=== PATIENT | female | born 1980 | race Caucasian/White ===

== ENCOUNTER 2024-09-24 14:17 | Emergency (ER) | payer MEDICAID, SELFPAY ==
[2024-09-24 14:20] VITALS: BP 128/82; PULSE 94; RESP 18; TEMP 37.3; O2SAT 98
[2024-09-24 14:23] VITALS: BP 128/82; PULSE 94; RESP 18; TEMP 37.3; O2SAT 98
--- NOTE | 2024-09-24 14:35 | ED.GENADUL_ITS ---
Discharge Plan Disposition Patient Disposition: Home Discharge Details Clinical Impression: Atypical pneumonia, Influenza A Primary Care Provider: [facility] ED Provider: Vicente Fitzpatrick Home Meds and New Rx's Prescriptions: New benzonatate 100 mg capsule 100 mg PO TID Qty: 30 0RF azithromycin 250 mg tablet 250 mg PO DAILY 4 Days Qty: 4 0RF Rx Instructions: start on day 2 of therapy Discharge Instructions Instructions: Atypical Pneumonia (Mycoplasma and Viral) (DC) Additional Instructions: At this time show evidence of atypical pneumonia on your ultrasound. Please take the Symbicort inhaler, 2 puffs twice daily for the next 1 to 2 weeks. Please take the azithromycin and the Tessalon Perles to help with the cough. These prescriptions have been sent to your pharmacy on file. Please be aware that the antibiotic may impact your control and make it less effective. Please use protection while on the antibiotic. If you notice any worsening of your symptoms, or any new symptoms such as vomiting, diarrhea, fever, chills, shortness of breath, chest pain, numbness, weakness, or fainting , please return immediately to the emergency department for reevaluation. Please follow up with your primary care provider as soon as possible for reassessment and reevaluation. As always, it was a pleasure participating in your medical care today. HPI General Date/Time Provider Initiated Documentation: 09/24/24 14:19 . 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 Symptoms have been present for the last 3 to 4 days, she has also had a mild sore throat. Cough is productive with brown sputum. She does have multiple other sick contacts at home. She denies any hemoptysis. She does take control. No recent long trips surgeries or procedures. No history of blood clots. No other complaints at this time. Related Data Home Medications ?Medication ?Instructions ?Recorded ?Confirmed azithromycin 250 mg tablet 250 mg PO DAILY 4 days #4 tabs 09/24/24 benzonatate 100 mg capsule 100 mg PO TID #30 caps 09/24/24 Previous Rx's ?Medication ?Instructions ?Recorded azithromycin 250 mg tablet 250 mg PO DAILY 4 days #4 tabs 09/24/24 benzonatate 100 mg capsule 100 mg PO TID #30 caps 09/24/24 Allergies Allergy/AdvReac Type Severity Reaction Status Date / Time No Known Allergies Allergy Unverified 09/24/24 14:22 General Stated Complaint: RespSymp WESLEY: 3 Exam Narrative Exam Narrative: 1.Const: Well-nourished, Well-developed, appearing stated age 2.Eyes: PERRL, no conjunctival injection, and symmetrical lids. 3.ENT: Atraumatic external nose and ears. Moist MM. Neck: Symmetric, trachea midline, No thyromegaly. No erythema in the posterior oropharynx. Tympanic membranes are arriola and pearly. 4.CVS: +S1/S2, Peripheral pulses 2+ and equal in all extremities. Brisk capillary refill in all extremities. 5.RESP: Unlabored respiratory effort. Clear to auscultation bilaterally. No wheezes rales or rhonchi 6.GI: Soft, Nontender/Nondistended, No hepatosplenomegaly. No guarding or rebound. 7.MSK: Normocephalic/Atraumatic, Extremities w/o deformity or ttp No cyanosis or clubbing, Normal movement of all extremities 8.Skin: Warm, Dry. No rashes or lesions. 9.Neuro: director of intelligence II-XII grossly intact. Sensation grossly intact, no focal neurologic deficits. 10.Psych: (AAO) x3. 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 Symptoms have been present for the last 3 to 4 days, she has also had a mild sore throat. Cough is productive with brown sputum. She does have multiple other sick contacts at home. She denies any hemoptysis. She does take control. No recent long trips surgeries or procedures. No history of blood clots. No other complaints at this time. Exam demonstrates well-appearing female, mild tachycardia, posterior oropharynx is unremarkable, tympanic membranes are arriola and pearly, lung sounds are clear, however with the patient's cough and productivity, a bedside ultrasound was performed surprisingly does show evidence of B-lines mild early atypical consolidative components. Suspect atypical pneumonia. Likely originally originating from a viral component. Will give azithromycin for atypical coverage, Tessalon Perles for cough, Symbicort inhaler for home use. Discussed red flags for which to return. I have extensively reviewed the treatment plan and discharge instructions with the patient. I have addressed all patient concerns at this time. The patient was made aware of what symptoms to monitor for that would warrant a return to the emergency department. Discussed the plan with the patient, they demonstrate verbal understanding and agreement with our assessment and plan at this time. The documentation in this chart was dictated using Software 2000 dictation software. Please excuse any dictation errors. Patient's influenza test was positive, I did call her and contact her and let her know. She has declined Tamiflu at this time. Quality:SDOH Health Related Social Needs: No Data to Display PFSH All Active Problems (Updated 09/24/24 @ 15:42 by Vicente Fitzpatrick DO) Influenza A (Acute) Atypical pneumonia (Acute) Social History Smoking/Tobacco Use Status: Never Smoking risk assessment performed?: Yes Alcohol Intake: current Alcohol Intake frequency: holidays/special occasions only Drug use: Never Substance use type: former substance user POCUS Exam (ED) Limited Thoracic Lung Exam DATE OF EXAM: 09/24/24 TIME OF EXAM: 14:38 PROVIDER THAT PERFORMED THE STUDY: Vicente Fitzpatrick IS THIS A REPEAT EXAM DURING THIS ENCOUNTER: No REASON FOR EXAM: Pneumonia VISUALIZED STRUCTURES: right lateral, left lateral, right posterior and left posterior PERTINENT FINDINGS/IMPRESSION: B-lines/left side, B-lines/right side and Pneumonia DIFFERENTIAL DIAGNOSES: atypical pneumonia Exam complete
--- OUTSIDE RECORDS SUMMARY | 2024-09-24 15:04 | XMS_ITS ---
Author Organization Unknown Address [address] [place] [address] [phone] Phone Care Team Providers Care Electrotyper Apprentice Name Role Phone MAGALIS AUSTIN Attending Unavailable SHANELL JAMES Primary Unavailable Results HCG QUANTITATIVE WHOLE MOLEC ULE* - Collect Date/Time: 01/16/2023 08:35 [facility] ID: [id number] [address] [place] [address], [address] LOINC: 81750-8 Test Value Unit Reference Range Code Code System Flag HCG, total+Beta subs 2135 91851-6 LOINC TYPE AND ANTIBODY S CREEN* - Collect Date/Time: 01/16/2023 08:35 [facility] ID: [id number] [address] [place] [address], [phone] LOINC: 882-1 Test Value Unit Reference Range Code Code System Flag Blood Group A 883-9 LOINC Rh (D) POSITIVE 53003-7 LOINC Antibody Screen NEGATIVE 1005-8 LOINC Social History Type Status Start Date End Date Code Code Syst em Smoking History Never smoker (Never Smoked) 213481744 SNOMED CT Sex Female Hospital Discharge Instructions Should you have any questions prior to discharge, please contact a member of your healthcare team. If you have left the hospital and have any questions, please contact your primary care physician. Reason For Referral No Data Found Allergies and Adverse Reactions Allergy Substance Reaction Severity Start Date Concern Status Co de Code System No Known Drug Allergies Moderate Active 444803671 SNOMED-CT Plan of Treatment LAB DRAW 15MIN 07/09/2023 LAB DRAW 15MIN 07/09/2023 LAB DRAW 15MIN 07/09/2023 LAB DRAW 15MIN 07/09/2023 Encounters Encounter Diagnosis Start Date Code Code Sys tem Amenorrhea 01/16/2023 75769222 SNOMED-CT Personal Care Team Section Performer Name Performer Role Active Date Inactive Da te
--- OUTSIDE RECORDS SUMMARY | 2024-09-24 15:04 | XMS_ITS ---
Author Organization Unknown Address [address] [place] [address] [phone] Phone Care Team Providers Care Television Production Clerk Name Role Phone MAGALIS AUSTIN Attending Unavailable SHANELL JAMES Primary Unavailable Results HCG QUANTITATIVE WHOLE MOLEC ULE* - Collect Date/Time: 01/19/2023 11:10 [facility] ID: [id number] [address] [place] [address], [address] LOINC: 29781-3 Test Value Unit Reference Range Code Code System Flag HCG, total+Beta subs 7711 20065-9 LOINC Social History Type Status Start Date End Date Code Code Syst em Smoking History Never smoker (Never Smoked) 533859871 SNOMED CT Sex Female Hospital Discharge Instructions [...] System No Known Drug Allergies Moderate Active 755559174 SNOMED-CT Plan of Treatment LAB DRAW 15MIN 07/09/2023 LAB DRAW 15MIN 07/09/2023 LAB DRAW 15MIN 07/09/2023 LAB DRAW 15MIN 07/09/2023 Encounters Encounter Diagnosis Start Date Code Code Sys tem Hemorrhage in early , unspecified 01/19/2023 SNOMED-CT Personal Care Team Section Performer Name Performer Role Active Date Inactive Da te
--- OUTSIDE RECORDS SUMMARY | 2024-09-24 15:04 | XMS_ITS ---
Author Organization Unknown Address [address] [place] [address] [phone] Phone Care Team Providers Care Concrete Pourer Name Role Phone KP Delgado Attending Unavailable SHANELL JAMES Primary Unavailable Social History Type Status Start Date End Date Code Code Syst em Smoking History Never smoker (Never Smoked) 422758278 SNOMED CT Sex Female Hospital Discharge Instructions [...] System No Known Drug Allergies Moderate Active 189460283 SNOMED-CT Plan of Treatment LAB DRAW 15MIN 07/09/2023 LAB DRAW 15MIN 07/09/2023 LAB DRAW 15MIN 07/09/2023 LAB DRAW 15MIN 07/09/2023 Encounters Encounter Diagnosis Start Date Code Code Sys tem Encounter for gynecological examination (general) (routine) without abnormal findings 06/27/2022 SNOM ED-CT Personal Care Team Section Performer Name Performer Role Active Date Inactive Ian black
--- OUTSIDE RECORDS SUMMARY | 2024-09-24 15:05 | XMS_ITS ---
Author Organization Unknown Address [address] [place] [address] [phone] Phone Care Team Providers Care Dry Cell Assembly Supervisor Name Role Phone MAGALIS TORO LOU Attending Unavailable SHANELL JAMES Primary Unavailable Results URINALYSIS ROUTINE* - [facility] t Date/Time: 01/20/2023 14:00 [facility] ID: [id number] [address] [place], [place], [address] LOINC: Test Value Unit Reference Range Code Code System Flag COLLECTION MODE: NOT STATED 74738-4 LOINC Color STRAW yellow 5778-6 LOINC Appearance CLEAR clear 5767-9 LOINC Glucose urine NEGATIVE negative mg/dl 73413-1 LOINC Bilirubin NEGATIVE negative 5770-3 LOINC Ketones NEGATIVE negative mg/dl 2514-8 LOINC Spec gravity <=1.005 1.003 - 1.030 5811-5 LOINC pH urine 6.0 5.0 - 7.0 2756-5 LOINC Protein NEGATIVE negative mg/dl 86357-8 LOINC Urobilinogen 0.2 <or= 1 EU/dl 43701-7 LOINC Nitrite NEGATIVE negative 5802-4 LOINC Blood TRACE-LY negative 5794-3 LOINC A Leukocytes NEGATIVE negative 76781-9 LOINC MICROSCOPIC* INDICATED WBCs none 0-5 / hpf 14932-4 LOINC RBCs 0-5 0-5 / hpf 18836-0 LOINC Epith cells 0-5 0-5 / hpf 24629-5 LOINC Cell types squamous Crystals none none Bacteria none none Mucus none none 8247-9 LOINC Casts none none /lpf 41905-1 LOINC Other 11928-1 LOINC CULT URINE CULTURE* - [facility] t Date/Time: 01/20/2023 14:00 [facility] ID: [id number] [address] [place], [place], [phone] LOINC: 630-4 Test Value Unit Reference Range Code Code System Flag COLLECTION MODE: NOT STATED 31745-2 LOINC US OB LESS THAN 14 WKS W TRA NSVAGINAL* - Completed: 01/20/2023 14:16 LOINC: [facility] RADIOLOGY [place], [place] [address] [facility] RE[facility] Patient Name: DONAL JOINER MRN: Sex: : Age: [id number] Account: Accession: Admit: StayType: [id number] 01/20/2023 O/P Ordered: Order ID: Submitted: Ordering Provider: 01/20/2023 13:33 [id number] MUNA MACK Completed: Technologist: Resulted: 01/20/2023 14:16 [facility] 01/20/2023 16:12 Study Description: US OB LESS THAN 14 WKS W TRANSVAGINAL Study Reason: BLEEDING IN TECHNIQUE: First trimester obstetrical ultrasound was performed. COMPARISON: No exams were available for comparison FINDINGS: There is an intrauterine gestational sac which contains a yolk sac. No heart rate detected. Mean sac diameter 10 mm equaling 5 weeks, 0 days. Estimated delivery date 09/22/2023 Anteflexed uterus with 1.3 cm fibroid. Normal bilateral ovaries. IMPRESSION: Gestational sac with mean sac diameter of 10 mm equaling 5 weeks, 0 days. No heart rate detected. Report Digitally Signed by Dejan Saravia on 01/20/2023 04:12 PM EDT 01/20/23.4272.[facility].to SHANELL JAMES via fax Social History Type Status Start Date End Date Code Code Syst em Smoking History Never smoker (Never Smoked) 192619308 SNOMED CT Sex Female Hospital Discharge Instructions [...] System No Known Drug Allergies Moderate Active 891874546 SNOMED-CT Plan of Treatment LAB DRAW 15MIN 07/09/2023 LAB DRAW 15MIN 07/09/2023 LAB DRAW 15MIN 07/09/2023 LAB DRAW 15MIN 07/09/2023 Encounters Encounter Diagnosis Start Date Code Code Sys tem Dysuria 01/20/2023 60567094 SNOMED-CT Personal Care Team Section Performer Name Performer Role Active Date Inactive Da te
--- OUTSIDE RECORDS SUMMARY | 2024-09-24 15:05 | XMS_ITS ---
Author Organization Unknown Address [address] [place] [address] [phone] Phone Care Team Providers Care Ent Consultant Name Role Phone ANURADHARAEArlyn TOROMCKENNA Attending Unavailable SHANELL JAMES Primary Unavailable Social History Type Status Start Date End Date Code Code Syst em Smoking History Never smoker (Never Smoked) 720429130 SNOMED CT Sex Female Hospital Discharge Instructions [...] System No Known Drug Allergies Moderate Active 060169960 SNOMED-CT Plan of Treatment LAB DRAW 15MIN 07/09/2023 LAB DRAW 15MIN 07/09/2023 LAB DRAW 15MIN 07/09/2023 LAB DRAW 15MIN 07/09/2023 Encounters Encounter Diagnosis Start Date Code Code Sys tem Multigravida of advanced maternal age 0702/16/2023 447 549936 SNOMED-CT Personal Care Team Section Performer Name Performer Role Active Date Inactive Da te
--- OUTSIDE RECORDS SUMMARY | 2024-09-24 15:06 | XMS_ITS ---
Author Organization Unknown Address [address] [place] [address] [phone] Phone Care Team Providers Care Recruitment Advertising Manager Name Role Phone ANURADHA Stoddard Attending Unavailable SHANELL JAMES Primary Unavailable Social History Type Status Start Date End Date Code Code Syst em Smoking History Never smoker (Never Smoked) 470368781 SNOMED CT Sex Female Hospital Discharge Instructions [...] System No Known Drug Allergies Moderate Active 571378921 SNOMED-CT Plan of Treatment LAB DRAW 15MIN 07/09/2023 LAB DRAW 15MIN 07/09/2023 LAB DRAW 15MIN 07/09/2023 LAB DRAW 15MIN 07/09/2023 Encounters Encounter Diagnosis Start Date Code Code Sys tem Multigravida of advanced maternal age 1006/03/2023 440 980356 SNOMED-CT Personal Care Team Section Performer Name Performer Role Active Date Inactive Da sofia
--- OUTSIDE RECORDS SUMMARY | 2024-09-24 15:06 | XMS_ITS ---
Author Organization Unknown Address [address] [place] [address] [phone] Phone Care Team Providers Care Senior Back End Java Developer Name Role Phone MAGALIS AUSTIN Attending Unavailable SHANELL JAMES Primary Unavailable Results CHLAMYDIA/GC AMPLIFIED PROBE * - Collect Date/Time: 03/20/2023 16:37 ID: [id number] [address] [place] [address], [phone] LOINC: 44185-2 Test Value Unit Reference Range Code Code System Flag Chlamydia Result Negative Negative GC Result Negative Negative Social History Type Status Start Date End Date Code Code Syst em Smoking History Never smoker (Never Smoked) 593538834 SNOMED CT Sex Female Hospital Discharge Instructions [...] System No Known Drug Allergies Moderate Active 339270850 SNOMED-CT Plan of Treatment LAB DRAW 15MIN 07/09/2023 LAB DRAW 15MIN 07/09/2023 LAB DRAW 15MIN 07/09/2023 LAB DRAW 15MIN 07/09/2023 Encounters Encounter Diagnosis Start Date Code Code Sys tem Supervision of elderly multigravida, second trimester 03/20/2023 SNOMED-CT Personal Care Team Section Performer Name Performer Role Active Date Inactive Da te
--- OUTSIDE RECORDS SUMMARY | 2024-09-24 15:06 | XMS_ITS ---
Author Organization Unknown Address [address] [place] [address] [phone] Phone Care Team Providers Care Promotions Producer Name Role Phone BASILIO Martin Attending Unavailable SHANELL JAMES Primary Unavailable Social History Type Status Start Date End Date Code Code Syst em Smoking History Never smoker (Never Smoked) 142496049 SNOMED CT Sex Female Hospital Discharge Instructions [...] System No Known Drug Allergies Moderate Active 873969644 SNOMED-CT Plan of Treatment LAB DRAW 15MIN 07/09/2023 LAB DRAW 15MIN 07/09/2023 LAB DRAW 15MIN 07/09/2023 LAB DRAW 15MIN 07/09/2023 Encounters Encounter Diagnosis Start Date Code Code Sys tem Supervision of elderly multigravida, second trimester 04/16/2023 SNOMED-CT Personal Care Team Section Performer Name Performer Role Active Date Inactive Da sofia
--- OUTSIDE RECORDS SUMMARY | 2024-09-24 15:06 | XMS_ITS ---
Author Organization Unknown Address [address] [place] [address] [phone] Phone Care Team Providers Care Appliance Assembler Name Role Phone November Attending Unavailable SHANELL JAMES Primary Unavailable Social History Type Status Start Date End Date Code Code Syst em Smoking History Never smoker (Never Smoked) 329429776 SNOMED CT Sex Female Hospital Discharge Instructions [...] System No Known Drug Allergies Moderate Active 279408692 SNOMED-CT Plan of Treatment LAB DRAW 15MIN 07/09/2023 LAB DRAW 15MIN 07/09/2023 LAB DRAW 15MIN 07/09/2023 LAB DRAW 15MIN 07/09/2023 Encounters Encounter Diagnosis Start Date Code Code Sys tem Multigravida of advanced maternal age 0905/08/2023 442 117644 SNOMED-CT Personal Care Team Section Performer Name Performer Role Active Date Inactive Da sofia
--- OUTSIDE RECORDS SUMMARY | 2024-09-24 15:07 | XMS_ITS ---
Author Organization Unknown Address [address] [place] [address] [phone] Phone Care Team Providers Care Board Handler Name Role Phone TIFFANYHAYLEY NOVEMBER Attending Unavailable SHANELL JAMES Primary Unavailable Results HEMOGRAM + PLATELET WO DIFF - Collect Date/Time: 07/01/2023 16:04 [facility] ID: [id number] [address] [place] [address], [phone] LOINC: 95721-3 Test Value Unit Reference Range Code Code System Flag WBC 11.54 th/cmm L=5.00 H=10.00 6690-2 LOINC H NRBC % 0.0 % L=0.0 H=0.0 62788-5 LOINC NRBC abs count 0.0 mil/cmm L=0.0 H=0.0 05728-7 LOINC RBC 3.56 mil/cmm L=3.90 H=5.40 789-8 LOINC L HEMOGLOBIN 11.7 gm/dL L=12.0 H=16.0 718-7 LOINC L HEMATOCRIT 34 % L=37 H=47 4544-3 LOINC L MCV 97 fL L=82 H=92 787-2 LOINC H MCH 32.9 pg L=27.0 H=31.0 785-6 LOINC H MCHC 34.0 % L=32.0 H=36.0 786-4 LOINC RDW-SD 44.6 fL L=39.0 H=49.0 788-0 LOINC PLATELET COUNT 306 th/cmm L=150 H=450 777-3 LOINC GLUCOSE - 1 HOUR AFTER 50GM GLUCOLA - Collect Date/Time: 07/01/2023 16:04 [facility] ID: [id number] [address] [place], [place], [address] LOINC: 1504-0 Test Value Unit Reference Range Code Code System Flag GLUCOSE 1 HOUR 150 mg/dL L=0 H=135 1504-0 LOINC H Social History Type Status Start Date End Date Code Code Syst em Smoking History Never smoker (Never Smoked) 365856205 SNOMED CT Sex Female Hospital Discharge Instructions [...] System No Known Drug Allergies Moderate Active 862088518 SNOMED-CT Plan of Treatment LAB DRAW 15MIN 07/09/2023 LAB DRAW 15MIN 07/09/2023 LAB DRAW 15MIN 07/09/2023 LAB DRAW 15MIN 07/09/2023 Encounters Encounter Diagnosis Start Date Code Code Sys tem Multigravida of advanced maternal age 1107/01/2023 441 584703 SNOMED-CT Personal Care Team Section Performer Name Performer Role Active Date Inactive Da sofia
--- OUTSIDE RECORDS SUMMARY | 2024-09-24 15:07 | XMS_ITS ---
Author Organization Unknown Address [address] [place] [address] [phone] Phone Care Team Providers Care Presentation Team Member Name Role Phone November Attending Unavailable SHANELL JAMES Primary Unavailable Social History Type Status Start Date End Date Code Code Syst em Smoking History Never smoker (Never Smoked) 458988994 SNOMED CT Sex Female Hospital Discharge Instructions [...] System No Known Drug Allergies Moderate Active 681165250 SNOMED-CT Plan of Treatment LAB DRAW 15MIN 07/09/2023 LAB DRAW 15MIN 07/09/2023 LAB DRAW 15MIN 07/09/2023 LAB DRAW 15MIN 07/09/2023 Encounters Encounter Diagnosis Start Date Code Code Sys tem Multigravida of advanced maternal age 1207/29/2023 445 148138 SNOMED-CT Personal Care Team Section Performer Name Performer Role Active Date Inactive Da sofia
--- OUTSIDE RECORDS SUMMARY | 2024-09-24 15:07 | XMS_ITS ---
Author Organization Unknown Address [address] [place] [address] [phone] Phone Care Team Providers Care Locomotive Crane Operator Name Role Phone TIFFANYHAYLEY NOVEMBER Attending Unavailable SHANELL JAMES Primary Unavailable Results GLUCOSE TOLERANCE TEST THREE HOUR* - Collect Date/Time: 07/09/2023 10:49 [facility] ID: [id number] [address] [place] [address], [phone] LOINC: 61928-9 Test Value Unit Reference Range Code Code System Flag Fasting Glucose 75 mg/dL L=80 H=116 L 1 hour Glucose 159 mg/dL L=80 H=200 2 hour Glucose 156 mg/dL L=80 H=150 H 3 hour Glucose 81 mg/dL L=80 H=116 Social History Type Status Start Date End Date Code Code Syst em Smoking History Never smoker (Never Smoked) 701151748 SNOMED CT Sex Female Hospital Discharge Instructions [...] System No Known Drug Allergies Moderate Active 730594494 SNOMED-CT Plan of Treatment LAB DRAW 15MIN 07/09/2023 LAB DRAW 15MIN 07/09/2023 LAB DRAW 15MIN 07/09/2023 LAB DRAW 15MIN 07/09/2023 Encounters Encounter Diagnosis Start Date Code Code Sys tem Impaired glucose tolerance (oral) 07/09/2023 SNOMED-CT Personal Care Team Section Performer Name Performer Role Active Date Inactive Da te Laboratory Narrative Notes [facility] \[id number]\\[id number]\\[id number]\ \MRLo\ [address] [address] ----PATIENT NAME---- SEX AGE ADMIT M/R# PATIENT# RM/LOC TYPE RHYS Delgado F [id number] O/P ORD: KYLIE ATT: SEC: ELIZABETH: SHANELL GA PHONE: ---PROCEDURE--- GLUCOSE TOLERANCE TEST THREE HOUR* --ORDERED-- --COLLECTED-- --REC'D-- --RESULTED-- --VERIFIED--- 07/09/23 0700 07/09/23 1049 07/09/23 1129 07/09/23 1138 07/09/23 1138 HT SHR LID LD LD \MRHx\ GLUCOSE TOLERANCE TEST, 3 HOUR URINES FASTING _NEG mg/dl ( negative ) 1 hr _100_MG____ mg/dl ( negative ) 2 hr _250_MG____ mg/dl ( negative ) 3 hr _100_MG____ mg/dl ( negative ) BLOODS [ Fasting Glucose 75 L mg/dL (L=80 H=116 )] [ 1 hour Glucose 159 mg/dL (L=80 H=200 )] [ 2 hour Glucose 156 H mg/dL (L=80 H=150 )] [ 3 hour Glucose 81 mg/dL (L=80 H=116 )] 07/09/23.1138.LD .COMPLETE 07/09/23.2146.DEC.REVIEWED
--- OUTSIDE RECORDS SUMMARY | 2024-09-24 15:07 | XMS_ITS ---
Author Organization Unknown Address [address] [place] [phone] Phone Care Team Providers Care Manager Talent Name Role Phone BASILIO Martin Attending Unavailable SHANELL JAMES Primary Unavailable Social History Type Status Start Date End Date Code Code Syst em Smoking History Never smoker (Never Smoked) 846406119 SNOMED CT Sex Female Hospital Discharge Instructions [...] System No Known Drug Allergies Moderate Active 444870675 SNOMED-CT Plan of Treatment LAB DRAW 15MIN 07/09/2023 LAB DRAW 15MIN 07/09/2023 LAB DRAW 15MIN 07/09/2023 LAB DRAW 15MIN 07/09/2023 Encounters Encounter Diagnosis Start Date Code Code Sys tem Multigravida of advanced maternal age 1207/15/2023 [id number] SNOMED-CT Personal Care Team Section Performer Name Performer Role Active Date Inactive Da sofia
--- OUTSIDE RECORDS SUMMARY | 2024-09-24 15:08 | XMS_ITS ---
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[employer] Name Role Phone ANURADHARAEArlyn TOROMCKENNA Attending Unavailable SHANELL JAMSE Primary Unavailable Social History Type Status Start Date End Date Code Code Syst em Smoking History Never smoker (Never Smoked) 960804311 SNOMED CT Sex Female Hospital Discharge Instructions [...] System No Known Drug Allergies Moderate Active [id number] SNOMED-CT Plan of Treatment LAB DRAW 15MIN 07/09/2023 LAB DRAW 15MIN 07/09/2023 LAB DRAW 15MIN 07/09/2023 LAB DRAW 15MIN 07/09/2023 Encounters Encounter Diagnosis Start Date Code Code Sys tem Multigravida of advanced maternal age 0108/13/2023 [id number] SNOMED-CT Personal Care Team Section Performer Name Performer Role Active Date Inactive Da te
--- OUTSIDE RECORDS SUMMARY | 2024-09-24 15:08 | XMS_ITS ---
Author Organization Unknown Address [address] [place] [address] [phone] Phone Care Team Providers Care Programming Development Project Manager Name Role Phone Unavailable Xwatchlist Unavailable MAGALIS AUSTIN Attending Unavailable SHANELL JAMES Primary Unavailable Results TYPE AND SCREEN* - Collect D ate/Time: 08/30/2023 22:34 [facility] ID: [id number] [address] [place] [address], [id number] LOINC: Test Value Unit Reference Range Code Code System Flag Blood Group A 883-9 LOINC Rh (D) POSITIVE 66294-7 LOINC Antibody Screen NEGATIVE 1005-8 LOINC LDH (LACTATE DEHYDROGENASE)* - Collect Date/Time: 08/30/2023 22:34 [facility] ID: [id number] [address] [place] [address], [address] LOINC: 2532-0 Test Value Unit Reference Range Code Code System Flag LDH 173 U/L L=85 H=185 2532-0 LOINC CBC W/ DIFFERENTIAL* - Colle ct Date/Time: 08/30/2023 22:34 [facility] ID: [id number] [address] [place] [address], [address] LOINC: 31279-9 Test Value Unit Reference Range Code Code System Flag WBC 12.81 th/cmm L=5.00 H=10.00 6690-2 LOINC H NEUT % 74.9 % L=40.0 H=80.0 LYMPH % 16.4 % L=10.0 H=50.0 MONO % 6.9 % L=2.0 H=12.0 83763-8 LOINC EOS % 1.0 % L=0.0 H=8.0 BASO % 0.3 % L=0.0 H=3.0 IG % 0.5 % L=0.0 H=1.1 2514-8 LOINC NRBC % 0.0 % L=0.0 H=0.0 07077-7 LOINC NEUT abs count 9.6 th/cmm L=1.6 H=8.4 751-8 LOINC H LYMPH abs count 2.1 th/cmm L=1.5 H=4.0 731-0 LOINC MONO abs count 0.9 th/cmm L=0.2 H=1.0 742-7 LOINC EOS abs count 0.1 th/cmm L=0.0 H=0.5 711-2 LOINC BASO abs count 0.0 th/cmm L=0.0 H=0.2 704-7 LOINC IG abs count 0.1 th/cmm L=0.0 H=0.1 11232-2 LOINC NRBC abs count 0.0 mil/cmm L=0.0 H=0.0 25407-0 LOINC RBC 4.03 mil/cmm L=3.90 H=5.40 789-8 LOINC HEMOGLOBIN 13.3 gm/dL L=12.0 H=16.0 718-7 LOINC HEMATOCRIT 39 % L=37 H=47 4544-3 LOINC MCV 96 fL L=82 H=92 787-2 LOINC H MCH 33.0 pg L=27.0 H=31.0 785-6 LOINC H MCHC 34.4 % L=32.0 H=36.0 786-4 LOINC RDW-SD 44.1 fL L=39.0 H=49.0 788-0 LOINC PLATELET COUNT 320 th/cmm L=150 H=450 777-3 LOINC COMPREHENSIVE METABOLIC PANE L (CMP) - Collect Date/Time: 08/30/2023 22:34 [facility] ID: [id number] [address] [place], [place], [address] LOINC: 43089-9 Test Value Unit Reference Range Code Code System Flag GLUCOSE 93 mg/dL L=70 H=116 2345-7 LOINC BUN 11 mg/dL L=6 H=25 3094-0 LOINC CREATININE 0.73 mg/dL L=0.51 H=0.95 2160-0 LOINC SODIUM SERUM 138 mmol/L L=136 H=145 2951-2 LOINC POTASSIUM SERUM 4.1 mmol/L L=3.4 H=5.2 2823-3 LOINC CHLORIDE SERUM 105 mmol/L L=96 H=110 2075-0 LOINC CARBON DIOXIDE (CO2) 25 mmol/L L=22 H=34 2028-9 LOINC ANION GAP 7.7 mmol/L 97453-2 LOINC CALCIUM SERUM 8.6 mg/dL L=8.2 H=10.2 67937-7 LOINC BILIRUBIN TOTAL 0.2 mg/dL L=0.0 H=1.3 1975-2 LOINC ALK. PHOS. 159 U/L L=46 H=116 6768-6 LOINC H SGOT (AST) 13 U/L L=15 H=37 1920-8 LOINC L SGPT (ALT) 13 U/L L=12 H=78 1742-6 LOINC TOTAL PROTEIN 6.4 gm/dL L=6.0 H=8.0 2885-2 LOINC ALBUMIN 2.3 gm/dL L=3.4 H=5.0 1751-7 LOINC L AGE 42 years eGFR (non-Afr.Amer.) 87 mL/min 18979-8 LOINC eGFR (Afr-Cymraes) 106 mL/min 76472-5 LOINC Social History Type Status Start Date End Date Code Code Syst em Smoking History Never smoker (Never Smoked) 649776288 SNOMED CT Sex Female Vital Signs Vital Sign Value Unit Kershaw Value Kershaw Unit Date/Time Recent/Initial? Code Code System Systolic Blood Pressure 126 mm[Hg] 09/02/2023 08:15 Most Recent 8480-6 LOINC Diastolic Blood Pressure 71 mm[Hg] 09/02/2023 08:15 Most Recent 8462-4 LOINC Systolic Blood Pressure 126 mm[Hg] 08/30/2023 06:44 Initial 8480-6 LOINC Diastolic Blood Pressure 73 mm[Hg] 08/30/2023 06:44 Initial 8462-4 LOINC O2 Saturation 96 % 2023 00:01 Most Recent 08912- 5 LOINC O2 Saturation 99 % 2023 06:44 Initial 54660- 5 LOINC Pulse 74.0 /min 09/02/2023 08:15 Most Recent 8867-4 LOINC Pulse 70.0 /min 08/30/2023 06:44 Initial 8867-4 LOINC Respiration 16 /min 09/02/19 08:15 Most Recent 9279-1 LOINC Respiration 16 /min 08/30/19 06:44 Initial 9279-1 LOINC Temperature 36.2 Surekha 97.2 F 09/02/19 08:15 Most Recent 8310-5 LOINC Temperature 36.9 Surekha 98.4 F 08/30/19 06:44 Initial 8310-5 LOINC Hospital Discharge Instructions Should you have any questions prior to discharge, please contact a member of your healthcare team. If you have left the hospital and have any questions, please contact your primary care physician. Reason For Referral No Data Found Procedures Procedure Name Date Status Code Code Syste m Introduction of Other Hormon e into Peripheral Vein, Percutaneous Approach 08/30/2023 completed [id number] Delivery of Products of Conc eption, External Approach 08/30/2023 completed 40B1XQN [id number] Monitoring of Products of Co nception, Cardiac Rate, External Approach 08/30/2023 completed [id number] Allergies and Adverse Reactions Allergy Substance Reaction Severity Start Date Concern Status Co de Code System No Known Drug Allergies Moderate Active [id number] SNOMED-CT Plan of Treatment LAB DRAW 15MIN 07/09/2023 LAB DRAW 15MIN 07/09/2023 LAB DRAW 15MIN 07/09/2023 LAB DRAW 15MIN 07/09/2023 Encounters Encounter Diagnosis Start Date Code Code Sys tem Full-term premature rupture of membranes, unspecified as to length of time between rupture and onset of labor 08/30/2023 SNOMED-CT Personal Care Team Section Performer Name Performer Role Active Date Inactive Da sofia Laboratory Narrative Notes [facility] 10/23/2023 03:[address] [address] PATHOLOGY REPORT Name: RHYS Delgado : 1980 (AGE:42) F Order Phys: MAGALIS AUSTIN Admit Phys: MAGALIS AUSTIN Collected Date: 08/30/23 09:29 Order #: [id number] Received Date: 08/31/23 09:29 Primary Care: SHANELL JAMES Unsigned Transcriptions represent a preliminary report and do not represent a medical or legal document FINAL PATHOLOGIC DIAGNOSIS: Placenta: Mature 3rd trimester placenta (380 grams, 20th percentile). Trivascular cord. membranes with no specific pathologic features. Reviewed and Electronically Signed by: FRANCESCO SMITH MD PATHOLOGIST 09/03/23 16:06 By the signature above, the attending physician certifies that he/she has personally conducted a gross and/or microscopic examination of the described specimens and rendered or confirmed the above diagnosis. Gross Description: Received fresh with formalin added and patient's name and date of is a 380 gram ortega placenta measuring 15 cm in diameter x 1.5 cm. The membranes appear cannon-pink, semi- transparent with marginal insertion. The umbilical cord is cannon-white, trivascular measuring 32 x 1.0 cm. The surface shows normal arborization of the umbilical vessels. The maternal surface shows beefy red-pink cotyledons. The placenta appears mildly thinner than usual sectioning through. The placenta shows beefy red parenchyma. As400 Analyst sections submitted as A1, A2 membranes and umbilical cord, A3 surface, A4-A5 maternal surface. Clinical Diagnosis: Early term premature rupture of membranes. Pertinent Clinical Data: Prolonged ROM, placenta appears unusually small and thin Specimen Source: Placenta Procedure Location Note: Gross evaluation done at [place], [place]. Microscopic evaluation done at [place], [place]. Histology processed at [facility], [place], [place]. Complexity Code: R d: 08/31/23, 1314, #[id number] t: 09/01/23 14:48 EW d: 09/03/2023; #[id number]; 0921 t: 09/03/2023; 1138; SAB Copy for: File copy printer # [id number] [address] PATHOLOGY REPORT Name: RHYS Delgado : 1980 (AGE:42) F Order Phys: MAGALIS AUSTIN Admit Phys: MAGALIS AUSTIN Collected Date: 08/30/23 09:29 Order #: [id number] Received Date: 08/31/23 09:29 Primary Care: SHANELL JAMES Unsigned Transcriptions represent a preliminary report and do not represent a medical or legal document Copy for: MAGALIS AUSTIN via modem Copy for: REECE ERIKA via fax DISCHARGED [facility] \[id number]\ \MRLo\ [place] [address] ----PATIENT NAME---- SEX AGE ADMIT M/R# PATIENT# RM/LOC TYPE RHYS Delgado F 42 [id number] O/P ORD: MAGALIS TORO ATT: SEC: ELIZABETH: SHANELL JAMES PAT PHONE: ---PROCEDURE--- TYPE AND SCREEN* --ORDERED-- --COLLECTED-- --REC'D-- --RESULTED-- --VERIFIED--- 08/30/23222208/30/23223308/30/23223508/30/23231308/30/232313 MLK RWF RWF RF RF \MRHx\ BLOOD TYPE AND ANTIBODY SCREEN { Blood Group A_ 08/30/23.2312.RF . . .M 883-9 { Rh (D) POSITIVE_ 08/30/23.2312.RF . . .M 22468-4 { Antibody Screen NEGATIVE_ 08/30/23.2312.RF . . .M 1005-8 Valid thru date: _09/02/2023__ 08/30/23.2312.RF . time: _2358 08/30/23.2312.RF . 08/30/23.2313.RF .COMPLETE 08/31/23.47.ALS.REVIEWED History and Physical Notes [facility] 08/30/2023 08:56 CNM Labor & Delivery LABOR ADMISSION H&P NOTE 08/30/2023 08:39 ID: Patient Name: JUDY JOINER Age: 42 years at 37 weeks 0 days gestation presenting [facility] the [facility] accompanied by her partner Surinder. Here for PROM. Lives over an hour away, prefers to be admitted now and await active labor here rather than go home. I would be more nervous at home. Has not done Preferences form but likely will want [facility] again, open to help if needed. Says her labors in past moved along fairly quickly. never had water break like this SUBJECTIVE/HPI: Reports water gush at 4:20 am, wet the whole bed, has continued to come out. Mild contractions. felt some last night as well. 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 Significant Past Medical History: cholecystectomy with complications, stint, several procedures migraine HAs ALLERGIES: adhesives cause rash, NKDA OBJECTIVE/PHYSICAL EXAM: Vital signs: Vital Signs: This Visit Date/Time BP (mm/Hg) BP Position/Site MAP (mm/Hg) Heart Rate Pulse Site Resp Temp (C) Temp (F) SPO2% O2 L/min FiO2 O2 Device Blood Sugar Pain Score Height (cm) Height (in) Weight (kg) Weight (lbs/ozs) Scale BMI BSA Head Cir (cm) 08/30/2023 06:44 126/73 SITTING/R ARM 91 70 BRACHIAL 16 36.9 TEMPORAL SCANNING 98.4 TEMPORAL SCANNING 99 % General: looks comfortable, relaxed, smiling. Surinder reports feeling very anxious. this will be his first baby Cardiovascular: normal Respiratory: normal Neuro: grossly normal Lower extremities: no edema Heart Rate tracing: Baseline: 135 bpm Variability: moderate Accelerations: Decelerations: none Contractions: infrequent, 1 in 20 min, also with periods of irritibility Abdomen: Soft, gravid, non-tender. position: cephalic, back on her R side by Leop[place]. Estimated Weight: 2.75 - 3.0 Kg Contractions palpate: mild Membranes: grossly SROM with wet pad, clear Cervical exam: deferred DATA: Estimated due date: 09/20/23, based on LMP and 9 week ultrasound Ultrasounds: dating and viability at 9 weeks; FAS complete, normal, posterior placenta Regular care LABS: Lab Results: Last 12 Months Test Results Units Reference Range Ordered Collected Status GROUP B STREP NEGATIVE NEGATIVE Normal: Negative 08/27/2023 17:54 08/27/2023 16:22 final OTHER SOURCE: VAG/RECTA VAG/RECTA 08/27/2023 17:54 08/27/2023 16:22 final PCN ALLERGY? NO NO 08/27/2023 17:54 08/27/2023 16:22 final Copy Sent to OB? YES YES 08/27/2023 17:54 08/27/2023 16:22 final Fasting Glucose 75 L mg/dL L=80 H=116 07/09/2023 07:00 07/09/2023 10:49 final 1 hour Glucose 159 mg/dL L=80 H=200 07/09/2023 07:00 07/09/2023 10:49 final 2 hour Glucose 156 H mg/dL L=80 H=150 07/09/2023 07:00 07/09/2023 10:49 final 3 hour Glucose 81 mg/dL L=80 H=116 07/09/2023 07:00 07/09/2023 10:49 final GLUCOSE 1 HOUR 150 H mg/dL L=0 H=135 07/01/2023 16:33 07/01/2023 16:04 final WBC 11.54 H th/cmm L=5.00 H=10.00 07/01/2023 16:33 07/01/2023 16:04 final NRBC % 0.0 % L=0.0 H=0.0 07/01/2023 16:33 07/01/2023 16:04 final NRBC abs count 0.0 mil/cmm L=0.0 H=0.0 07/01/2023 16:33 07/01/2023 16:04 final RBC 3.56 L mil/cmm L=3.90 H=5.40 07/01/2023 16:33 07/01/2023 16:04 final HEMOGLOBIN 11.7 L gm/dL L=12.0 H=16.0 07/01/2023 16:33 07/01/2023 16:04 final HEMATOCRIT 34 L % L=37 H=47 07/01/2023 16:33 07/01/2023 16:04 final MCV 97 H fL L=82 H=92 07/01/2023 16:33 07/01/2023 16:04 final MCH 32.9 H pg L=27.0 H=31.0 07/01/2023 16:33 07/01/2023 16:04 final MCHC 34.0 % L=32.0 H=36.0 07/01/2023 16:33 07/01/2023 16:04 final RDW-SD 44.6 fL L=39.0 H=49.0 07/01/2023 16:33 07/01/2023 16:04 final PLATELET COUNT 306 th/cmm L=150 H=450 07/01/2023 16:33 07/01/2023 16:04 final Chlamydia Result Negative Negative Negative 03/20/2023 16:57 03/20/2023 16:37 final GC Result Negative Negative Negative 03/20/2023 16:57 03/20/2023 16:37 final CHLAMYDIA/GC AMPLIFIED PROBE* 02/25/2023 17:48 02/25/2023 17:51 cancelled Hep B Surface Ag Negative Negative Negative 02/25/2023 17:48 02/25/2023 17:51 final Hep C Ab w Rfx PCR Negative Negative Negative 02/25/2023 17:48 02/25/2023 17:51 final HIV 1/2 Antigen andAntibody Negative Negative Negative 02/25/2023 17:47 02/25/2023 17:51 final WBC 8.66 th/cmm L=5.00 H=10.00 02/25/2023 17:47 02/25/2023 17:51 final NEUT % 71.3 % L=40.0 H=80.0 02/25/2023 17:47 02/25/2023 17:51 final LYMPH % 19.3 % L=10.0 H=50.0 02/25/2023 17:47 02/25/2023 17:51 final MONO % 7.2 % L=2.0 H=12.0 02/25/2023 17:47 02/25/2023 17:51 final EOS % 1.6 % L=0.0 H=8.0 02/25/2023 17:47 02/25/2023 17:51 final BASO % 0.3 % L=0.0 H=3.0 02/25/2023 17:47 02/25/2023 17:51 final IG % 0.3 % L=0.0 H=1.1 02/25/2023 17:47 02/25/2023 17:51 final NRBC % 0.0 % L=0.0 H=0.0 02/25/2023 17:47 02/25/2023 17:51 final NEUT abs count 6.2 th/cmm L=1.6 H=8.4 02/25/2023 17:47 02/25/2023 17:51 final LYMPH abs count 1.7 th/cmm L=1.5 H=4.0 02/25/2023 17:47 02/25/2023 17:51 final MONO abs count 0.6 th/cmm L=0.2 H=1.0 02/25/2023 17:47 02/25/2023 17:51 final EOS abs count 0.1 th/cmm L=0.0 H=0.5 02/25/2023 17:47 02/25/2023 17:51 final BASO abs count 0.0 th/cmm L=0.0 H=0.2 02/25/2023 17:47 02/25/2023 17:51 final IG abs count 0.0 th/cmm L=0.0 H=0.1 02/25/2023 17:47 02/25/2023 17:51 final NRBC abs count 0.0 mil/cmm L=0.0 H=0.0 02/25/2023 17:47 02/25/2023 17:51 final RBC 4.10 mil/cmm L=3.90 H=5.40 02/25/2023 17:47 02/25/2023 17:51 final HEMOGLOBIN 13.4 gm/dL L=12.0 H=16.0 02/25/2023 17:47 02/25/2023 17:51 final HEMATOCRIT 40 % L=37 H=47 02/25/2023 17:47 02/25/2023 17:51 final MCV 97 H fL L=82 H=92 02/25/2023 17:47 02/25/2023 17:51 final MCH 32.7 H pg L=27.0 H=31.0 02/25/2023 17:47 02/25/2023 17:51 final MCHC 33.8 % L=32.0 H=36.0 02/25/2023 17:47 02/25/2023 17:51 final RDW-SD 43.1 fL L=39.0 H=49.0 02/25/2023 17:47 02/25/2023 17:51 final PLATELET COUNT 315 th/cmm L=150 H=450 02/25/2023 17:47 02/25/2023 17:51 final Blood Group A A 02/25/2023 17:47 02/25/2023 17:51 final Rh (D) POSITIVE POSITIVE 02/25/2023 17:47 02/25/2023 17:51 final Antibody Screen NEGATIVE NEGATIVE 02/25/2023 17:47 02/25/2023 17:51 final Rubella IgG Ab Positive Positive See Note 02/25/2023 17:48 02/25/2023 17:51 final Syphilis Serology Negative Negative Negative 02/25/2023 17:48 02/25/2023 17:51 final COLLECTION MODE: NOT STATED NOT STATED 01/20/2023 13:53 01/20/2023 14:00 final COLLECTION MODE: NOT STATED NOT STATED 01/20/2023 13:53 01/20/2023 14:00 final Color STRAW STRAW yellow 01/20/2023 13:53 01/20/2023 14:00 final Appearance CLEAR CLEAR clear 01/20/2023 13:53 01/20/2023 14:00 final Glucose urine NEGATIVE NEGATIVE negative mg/dl 01/20/2023 13:53 01/20/2023 14:00 final Bilirubin NEGATIVE NEGATIVE negative 01/20/2023 13:53 01/20/2023 14:00 final Ketones NEGATIVE NEGATIVE negative mg/dl 01/20/2023 13:53 01/20/2023 14:00 final Spec gravity <=1.005 <=1.005 1.003 - 1.030 01/20/2023 13:53 01/20/2023 14:00 final pH urine 6.0 6.0 5.0 - 7.0 01/20/2023 13:53 01/20/2023 14:00 final Protein NEGATIVE NEGATIVE negative mg/dl 01/20/2023 13:53 01/20/2023 14:00 final Urobilinogen 0.2 0.2 01/20/2023 13:53 01/20/2023 14:00 final Nitrite NEGATIVE NEGATIVE negative 01/20/2023 13:53 01/20/2023 14:00 final Blood TRACE-LY A TRACE-LY negative 01/20/2023 13:53 01/20/2023 14:00 final Leukocytes NEGATIVE NEGATIVE negative 01/20/2023 13:53 01/20/2023 14:00 final MICROSCOPIC* INDICATED INDICATED 01/20/2023 13:53 01/20/2023 14:00 final WBCs none none 0-5 / hpf 01/20/2023 13:53 01/20/2023 14:00 final RBCs 0-5 0-5 0-5 / hpf 01/20/2023 13:53 01/20/2023 14:00 final Epith cells 0-5 0-5 0-5 / hpf 01/20/2023 13:53 01/20/2023 14:00 final Cell types squamous squamous 01/20/2023 13:53 01/20/2023 14:00 final Crystals none none none 01/20/2023 13:53 01/20/2023 14:00 final Bacteria none none none 01/20/2023 13:53 01/20/2023 14:00 final Mucus none none none 01/20/2023 13:53 01/20/2023 14:00 final Casts none none none /lpf 01/20/2023 13:53 01/20/2023 14:00 final Other 01/20/2023 13:53 01/20/2023 14:00 final HCG, total+Beta subs 7711 7711 01/19/2023 11:09 01/19/2023 11:10 final HCG, total+Beta subs 2135 2135 01/16/2023 08:29 01/16/2023 08:35 final Blood Group A A 01/16/2023 08:29 01/16/2023 08:35 final Rh (D) POSITIVE POSITIVE 01/16/2023 08:29 01/16/2023 08:35 final Antibody Screen NEGATIVE NEGATIVE 01/16/2023 08:29 01/16/2023 08:35 final PROBLEM LIST: AMA multip at 42 years old ASSESSMENT: Age: 42 years here at early term (37w0d) being admitted now for PROM heart rate Category 1 GBS: neg Shoulder dystocia risk: low Hemorrhage risk: low PLAN: Admit to Birthing Center FHR monitoring: intermittent auscultation per L&D protocol Labs: not indicated at this time labor pain coping plans: see how it goes, likely natural childbirth Explained that labor usually starts within several hours of PROM, and she is manuel which is a good sign. There is increasing risk of infection with prolonged ROM, so recommend pitocin augmentation to get labor started, now if she wants, or can wait and prefer to start pitocin no later than 24 hrs ROM. She prefers to wait and let labor start on its own. Getting breakfast. Encouraged up and walking, sit on ball, or sleep/nap as able, when wants. Will be checking temp Q 2 hrs, FHR auscultation hourly UNLESS she is asleep, can defer until awake. No questions at this time. Progress Notes [facility] 08/30/2023 22:59 LABOR PROGRESS NOTE S: hurts a lot, some nausea. considering epidural but not just yet O: pitocin at 4 contractions Q 3 min lasting 12 min Looking very intense, active now. sitting on ball, using nitrous intermittently now FHR Baseline 135, moder variab, acceler present, no decelerations. Vital Signs: Last 3 Hours Date/Time BP (mm/Hg) BP Position/Site MAP (mm/Hg) Heart Rate Pulse Site Resp Temp (C) Temp (F) SPO2% O2 L/min FiO2 O2 Device Blood Sugar Pain Score Height (cm) Height (in) Weight (kg) Weight (lbs/ozs) Scale BMI BSA Head Cir (cm) 08/30/2023 21:55 142/81 SITTING/L ARM 101 63 BRACHIAL 18 36.9 ORAL 98.4 ORAL 08/30/2023 20:30 123/64 LYING/L ARM 84 59 BRACHIAL 18 36.9 ORAL 98.4 ORAL A: Now laboring Coping ok, barely with nitrous a few high BPs, no sx of preeclampsia category 1 FHR tracing, reassuring P: Labs pending. Epidural if/when she wants. recommend vag exam prior to calling anesthesia. for now, says she is OK with nitrous. Ordering hussein FAULKNER [facility] 09/01/2023 10:28 CNM ROUNDING NOTE 09/01/2023 10:11 ID/Summary: Patient Name: JUDY JOINER Age: 42 years , who had a vaginal of live on 08/30 (DATE) at 23:58 (TIME) at 37 weeks 0 days gestation. Significant complications of , labor, , and/or recovery thus far: AMA did not breastfeed her first 2 babies SUBJECTIVE: feeling: well, L nipple has been sore, but not painful with latch just now, improving. baby cluster feeding over the past few hours. did get some sleep overnight, nurses watched baby for a few hours at a time. No ZELAYA or vision changes or RUQ pain Pain: cramping with BF, ibuprofen and heat help Bleeding: light feeding: as above OBJECTIVE: Vital Signs: Last 24 Hours Date/Time BP (mm/Hg) BP Position/Site MAP (mm/Hg) Heart Rate Pulse Site Resp Temp (C) Temp (F) SPO2% O2 L/min FiO2 O2 Device Blood Sugar Pain Score Weight (kg) Weight (lbs/ozs) Scale BSA 08/31/2023 20:18 128/76 SITTING/L ARM 93 60 BRACHIAL 16 36.9 ORAL 98.4 ORAL 97 % 08/31/2023 15:45 127/81 LYING/L ARM 96 67 BRACHIAL 16 36.7 ORAL 98.1 ORAL General: looks well, smiling, rested Breasts: soft, non-tender, nipples everted, L red on the tip, colostrum easy to express : normal infant root, suck and latch observed, maintained latch. showed her how to do laid back position Abdomen: soft, non-tender. Fundus: firm, below umbilicus Perineum/vulva: not observed Lower extremities: +2 edema, no tenderness, no erythema ASSESSMENT: Recovering well at 1 day off to a good start. 37 week baby feeding vigorously and often Sore nipple PLAN: Discharge home anticipated tomorrow. Rest, pain and bowel medications PRN. support as needed. Getting rental pump. Told to make appointment with [facility] for baby on or Thursday. Given Motherlove nipple ointment [facility] 08/31/2023 08:44 Rounding Progress Note 08/31/2023 , 08:37 ID/Summary: pt name Patient Name: JUDY JOINER , age Age: 42 years SUBJECTIVE: Doing great without complaints other than cramping. Ibuprofen with relief. OOB, void, PO ad pete, lochia decreased, will get saline lock out. Has nursed both sides 3 times each already, no tenderness. Got about 3hrs sleep. So pleased with and care. OBJECTIVE: Vital Signs: Last 3 Hours Date/Time BP (mm/Hg) BP Position/Site MAP (mm/Hg) Heart Rate Pulse Site Resp Temp (C) Temp (F) SPO2% O2 L/min FiO2 O2 Device Blood Sugar Pain Score Height (cm) Height (in) Weight (kg) Weight (lbs/ozs) Scale BMI BSA Head Cir (cm) 08/31/2023 08:18 121/79 SITTING/R ARM 93 65 RADIAL 18 36.8 TEMPORAL SCANNING 98.2 TEMPORAL SCANNING VS: last elevated BP 02:24 152/80, normal 125/66 on repeat 15min later. General: Appears well, rested, calm, tired but happy Abdomen: soft, non-tender, Fundus: firm, 1 below U ASSESSMENT: Stable < 12 hours, off to a good start. PP BPs wnl since 3hr PP PLAN: Continue routine PP care, watch BPs, normal recently, ongoing support for , and self care. Anticipate discharge home tomorrow or thursday [facility] 08/30/2023 23:16 Now requesting epidural. Vag exam: Told her not sure if she has time to get relief from epidural but will try if she really wants. states she definitely wants it now. [facility] 08/30/2023 18:22 LABOR PROGRESS NOTE 08/30/2023 18:15 Patient Name: JUDY JOINER Age: 42 years S: occasional contractions feel pretty intense, but infrequent O: Vital Signs: Last 3 Hours Date/Time BP (mm/Hg) BP Position/Site MAP (mm/Hg) Heart Rate Pulse Site Resp Temp (C) Temp (F) SPO2% O2 L/min FiO2 O2 Device Blood Sugar Pain Score Height (cm) Height (in) Weight (kg) Weight (lbs/ozs) Scale BMI BSA Head Cir (cm) 08/30/2023 15:52 126/78 SITTING/R ARM 94 72 BRACHIAL 18 36.5 TEMPORAL SCANNING 97.7 TEMPORAL SCANNING General: looks comfortable Continuous FHR tracing: Baseline: 135 variability: moderate accelerations: present decelerations: one prolonged x 4 min to 70's, resolved with position change, now appears cat 1 Contractions: infrequent Vag exam: 50/-3, moderately soft, mid A: PROM >12 hrs, not in labor, no s/sx of infection FHR tracing has been very reassuring but recently had a prolonged deceleration, moderate variability and accelerations since recovery P: suggested starting pitocin now rather than wait until 4am. explained how dose is titrated, need for cont EFM. Judy agreed to start pitocin. started briefly, then off for decel, now back on. Will titrate to adequate contraction pattern. ffered membrane sweep with exam, wanted so provided.
--- OUTSIDE RECORDS SUMMARY | 2024-09-24 15:08 | XMS_ITS ---
Author Organization Unknown Address [address] [place] [address] [phone] Phone Care Team Providers Care Product Applications Scientist Name Role Phone ESAGRETCHEN JASON Martin Attending Unavailable SHANELL JAMES Primary Unavailable Results GROUP B STREP DNA BY PCR - C ollect Date/Time: 08/27/2023 16:22 [facility] ID: [id number] [address] [place] [address], [id number] LOINC: 38927-3 Test Value Unit Reference Range Code Code System Flag GROUP B STREP NEGATIVE Normal: Negative OTHER SOURCE: VAG/RECTA PCN ALLERGY? NO Copy Sent to OB? YES Social History Type Status Start Date End Date Code Code Syst em Smoking History Never smoker (Never Smoked) 604674971 SNOMED CT Sex Female Hospital Discharge Instructions [...] System No Known Drug Allergies Moderate Active 200248651 SNOMED-CT Plan of Treatment LAB DRAW 15MIN 07/09/2023 LAB DRAW 15MIN 07/09/2023 LAB DRAW 15MIN 07/09/2023 LAB DRAW 15MIN 07/09/2023 Encounters Encounter Diagnosis Start Date Code Code Sys tem Multigravida of advanced maternal age 0108/27/2023 442 961481 SNOMED-CT Personal Care Team Section Performer Name Performer Role Active Date Inactive Da te
--- OUTSIDE RECORDS SUMMARY | 2024-09-24 15:08 | XMS_ITS ---
Author Organization Unknown Address [address] [place] [address] [phone] Phone Care Team Providers Care Rn Dialysis Name Role Phone BASILIO Martin Attending Unavailable SHANELL JAMES Primary Unavailable Results CULT URINE CULTURE* - Zach herman Date/Time: 09/11/2023 13:30 [facility] ID: [id number] [address] [place] [address], [phone] LOINC: 630-4 Test Value Unit Reference Range Code Code System Flag COLLECTION MODE: CLEAN CATCH 93843-8 LOINC Social History Type Status Start Date End Date Code Code Syst em Smoking History Never smoker (Never Smoked) 247017160 SNOMED CT Sex Female Hospital Discharge Instructions [...] System No Known Drug Allergies Moderate Active 935154425 SNOMED-CT Plan of Treatment LAB DRAW 15MIN 07/09/2023 LAB DRAW 15MIN 07/09/2023 LAB DRAW 15MIN 07/09/2023 LAB DRAW 15MIN 07/09/2023 Encounters Encounter Diagnosis Start Date Code Code Sys tem care 09/11/2023 802320331 SNOMED-CT Personal Care Team Section Performer Name Performer Role Active Date Inactive Da te
--- OUTSIDE RECORDS SUMMARY | 2024-09-24 15:08 | XMS_ITS ---
Author Organization Unknown Address [address] [place] [address] [phone] Phone Care Team Providers Care Cheesemaking Laborer Name Role Phone ANURADHARAEArlyn AUSTIN Attending Unavailable Social History Type Status Start Date End Date Code Code Syst em Smoking History Never smoker (Never Smoked) 693281755 SNOMED CT Sex Female Hospital Discharge Instructions [...] System No Known Drug Allergies Moderate Active 334889117 SNOMED-CT Plan of Treatment LAB DRAW 15MIN 07/09/2023 LAB DRAW 15MIN 07/09/2023 LAB DRAW 15MIN 07/09/2023 LAB DRAW 15MIN 07/09/2023 Encounters Encounter Diagnosis Start Date Code Code Sys tem Full-term premature rupture of membranes, onset of labor within 24 hours of rupture 08/30/2023 SNOMED-CT Personal Care Team Section Performer Name Performer Role Active Date Inactive Da te
[2024-09-24] MEDS: Benzonatate 100 MG CAP PO (15:09)
[2024-09-24] MEDS: Budesonide/Formoterol 160/4.5 6 GM 60 PUFF INH IH (15:09)
[2024-09-24] MEDS: Azithromycin 250 MG TAB 500 MG PO (15:09)
--- OUTSIDE RECORDS SUMMARY | 2024-09-24 15:09 | XMS_ITS ---
Author Organization Unknown Address [address] [place] [address] [phone] Phone Care Team Providers Care Sociology Adjunct Instructor Name Role Phone TIFFANYHAYLEY NOVEMBER Attending Unavailable SHANELL JAMES Primary Unavailable Results PAP THINPREP HPV REGARDLESS OF DX* - Collect Date/Time: 08/26/2024 13:22 [facility] ID: [id number] [address] [place] [address], [id number] LOINC: Test Value Unit Reference Range Code Code System Flag Report (See below) 10033-3 LOINC Social History Type Status Start Date End Date Code Code Syst em Smoking History Never smoker (Never Smoked) 569479951 SNOMED CT Sex Female Hospital Discharge Instructions [...] System No Known Drug Allergies Moderate Active 582825142 SNOMED-CT Plan of Treatment LAB DRAW 15MIN 07/09/2023 LAB DRAW 15MIN 07/09/2023 LAB DRAW 15MIN 07/09/2023 LAB DRAW 15MIN 07/09/2023 Encounters Encounter Diagnosis Start Date Code Code Sys tem Encounter for screening for malignant neoplasm of cerv ix 08/27/2024 SNOMED-CT Personal Care Team Section Performer Name Performer Role Active Date Inactive Da te
--- OUTSIDE RECORDS SUMMARY | 2024-09-24 15:09 | XMS_ITS | Continuity of Care Document ---
Author Organization [facility] Address [address] [place] [address] Care Team Providers Care Engine Generator Assembler Name Role Phone Latrell Brandy Mars Primary Care Physician [phone] Encounter [facility] Date(s): 05/18/24 - 05/18/[address] [address] Encounter Diagnosis Radiculopathy, lumbosacral region(Final) - Discharge Disposition: Home or Self Care Attending Physician: John Paul Suarez MD Admitting Physician: John Paul Suarez MD Referring Physician: John Paul Suarez MD Allergies, Adverse Reactions, Alerts No Known Medication Allergies Substance Criticality Severity Reaction Reaction Severity Status Adhesive Bandage 1 Low criticality Mild Active 1rash/hives Immunizations Given and Recorded Vaccine Date Status Refusal Reason influenza virus vaccine, inactivated 06/13/22 Give n influenza virus vaccine, inactivated 05/31/15 Campbell rded influenza virus vaccine, inactivated 05/08/14 Campbell rded influenza virus vaccine, inactivated 05/20/13 Campbell rded influenza virus vaccine, inactivated 04/29/12 Campbell rded influenza virus vaccine, inactivated 05/10/11 Campbell rded influenza virus vaccine, inactivated 04/30/11 Campbell rded influenza virus vaccine, inactivated 06/01/09 Campbell rded influenza virus vaccine, live 04/30/21 Recorded tetanus-diphth toxoids (Td) adult/adol 1 05/31/19 Recorded Novel [id number], all formulation 05/25/09 Recorded tetanus/diphth/pertuss (Tdap) adult/adol 07/21/07 Recorded HPV, unspecified formulation 03/11/07 Recorded HPV, unspecified formulation 10/05/06 Recorded HPV, unspecified formulation 07/31/06 Recorded hepatitis B adult vaccine 09/10/95 Recorded varicella virus vaccine 08/10/00 Recorded rubella virus vaccine 08/10/00 Recorded Not Given Vaccine Date Status Refusal Reason influenza, unspecified formulation 2 05/31/19 Not Given Patient Refuses 1Result Comment: Tolerated well 2Result Comment: Last Modified by Ac Brand, Special Education Science Teacher 05-31-2019, 15:33 Medications Diflucan 150 mg oral tablet 150 mg = 1 tab, Oral, Once, # 1 tab, 0 Refill(s), Pharmacy: [facility] #[id number] Start Date: 07/11/22 Status: Ordered fluticasone 50 mcg/inh nasal spray 1 sprays, Nasal, Daily, PRN other (see comment), # 16 g, 3 Refill(s), Pharmacy: [facility] #[id number] Start Date: 08/28/22 Status: Ordered levonorgestrel-ethinyl estradiol 90 mcg-20 mcg oral tablet 1 tab, Oral, Daily, # 84 tab, 3 Refill(s), Pharmacy: [facility] #[id number] Start Date: 06/13/22 Status: Ordered LORazepam 0.5 mg oral tablet 0.5 mg = 1 tab, Oral, BID, PRN as needed for anxiety, Max of 10 tabs per month., # 10 tab, 3 Refill(s), Pharmacy: [facility] #[id number] Start Date: 01/15/23 Status: Ordered ondansetron 4 mg oral tablet 4 mg = 1 tab, Oral, every 8 hr, PRN nausea, # 90 tab, 0 Refill(s), Pharmacy: [facility] #[id number] Start Date: 01/15/23 Status: Ordered Relpax 40 mg oral tablet 40 mg = 1 tab, Oral, Once, PRN as needed for migraine headache, may repeat dose once in 2 hours, # 6 tab, 1 Refill(s), Pharmacy: [facility] #[id number] Start Date: 06/13/22 Status: Ordered Problem List Condition Confirmation Course Effective Dates Status H ealth Status Informant Acute cholecystitis Confirmed Active Acute vaginitis Confirmed Active Allergic rhinitis Confirmed Active Backache Confirmed Active Cholecystitis Confirmed Active Depressive disorder Confirmed Active Herniated disc of spine Confirmed Active Gastrointestinal tract excision Confirmed Active Generalized anxiety disorder Confirmed Active Irregular periods Confirmed Active Pain of breast Confirmed Active Finding of appearance of skin Confirmed Active Annual physical exam Confirmed Active 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 Procedures Procedure Date Related Diagnosis Body Site Status Epidural steroid injection o f left side L5-S1 09/14/18 Completed Laparoscopic cholecystectomy 11/04/17 Completed Vital Signs Most recent to oldest [Reference Range]: 1 2 Temperature Oral [35.8-37.3 Deg C] 37.0 Deg C (05/18/24 10:15 AM) Temperature Oral (DegF) [96.4-99.1 Deg F ] 98.6 Deg F (05/18/24 10:15 AM) Heart Rate Monitored [60-100 bpm] 78 bpm (05/18/24 10:42 AM) 63 bpm (05/18/24 10:15 AM) Respiratory Rate [12-24 br/min] 20 br/mi n (05/18/24 10:42 AM) 18 br/min (05/18/24 10:15 AM) Blood Pressure [90-120/60-80 mmHg] 117/8 5mmHg (05/18/24 10:42 AM) 118/80mmHg (05/18/24 10:15 AM) Mean Arterial Pressure, Cuff [65-140 mmH g] 93 mmHg (05/18/24 10:15 AM) Social History Social History Type Response Tobacco Never tobacco user T obacco Use:. Sex Female Sex Representation Female (finding) Procedure note * John Paul Suarez MD: PERFORM Event Display: Procedure Note Authored Date: [id number] DONAL JOINER :1980 Age:43 years Sex:Female Visit Date:05/18/2024 Primary Care Physician: Ac Brand AML ANALYST Fluoroscopy for epidural steroid injection was 8 seconds Electronically Signed on 05/18/2024 10:46 EDT John Paul Suarez MD * John Paul Suarez MD: PERFORM Event Display: Procedure Note Authored Date: [id number] DONAL JOINER :1980 Age:43 years Sex:Female Visit Date:05/18/2024 Primary Care Physician: Ac Brand AML ANALYST Right sided L5-S1 interlaminar epidural steroid injection Images After the risk benefits and limitations were explained the patient she excepted these she was takenthe OR placed in prone position sterile prep and drape were back in usual fashion.??L 5 S1 interspace was notified using??fluoroscopy in AP views. ??Skin and deeper tissues were anesthetized with 1% lidocaine. ??An 18- gauge Touhy needle was advanced using fluoroscopic guidance down to the epidural space??once the epidural space was contacted and confirmed with [id number]-arflnmymrr normal saline??5 cc of preservative-free normal saline with 80 mg of Depo-Medrol were injected smoothly and slowly.??Experienced transient pressure in the right leg.?? Injection was completed the needle was removed tr act cleared and sterile dressing placed patient was taken recovery stable condition given appropriate discharge instructions she will call my office if she has any difficulties. Electronically Signed on 05/18/2024 10:46 EDT John Paul Suarez MD Patient Care team information Care Team Personnel Name: Ac Brand NP Position: Physician Member Role: Informed Provider Address: [address] Care Team Related Persons Name: SKYE PETERSEN Name: RO PETERSEN Name: JAMEEL JOINER Insurance Providers Guarantor name: DONAL JOINER Health Plan Information #: 1 Payer: [facility] MEDICAID Member Number: [id number] Policy Number: NA Health Plan Information #: 2 Payer: [facility] MEDICAID Member Number: [id number] Policy Number: NA
--- OUTSIDE RECORDS SUMMARY | 2024-09-24 15:09 | XMS_ITS ---
Author Organization Unknown Address [address] [place] [address] [phone] Phone Care Team Providers Care Typewriter Operator Automatic Name Role Phone ANURADHARAEArlyn TOROMCKENNA Attending Unavailable SHANELL JAMES Primary Unavailable Social History Type Status Start Date End Date Code Code Syst em Smoking History Never smoker (Never Smoked) 225938330 SNOMED CT Sex Female Hospital Discharge Instructions [...] System No Known Drug Allergies Moderate Active 997311379 SNOMED-CT Plan of Treatment LAB DRAW 15MIN 07/09/2023 LAB DRAW 15MIN 07/09/2023 LAB DRAW 15MIN 07/09/2023 LAB DRAW 15MIN 07/09/2023 Encounters Encounter Diagnosis Start Date Code Code Sys tem care 10/12/2023 882069200 SNOMED-CT Personal Care Team Section Performer Name Performer Role Active Date Inactive Da sofia
--- OUTSIDE RECORDS SUMMARY | 2024-09-24 15:09 | XMS_ITS | Referral Summary ---
Author Organization [facility] Address [address] [place] [address] Care Team Providers Care Collector Of Aquarium Specimens Name Role Phone Ac Brand Mars CARRERA Primary Care Provider [phone] Encounters Date Type Department Care Team Description 08/27/2024 Lab Requisition [facility] Pathology & Laboratory Medicine - [address] [address] Dick, Genny E, REVENUE SPECIALIST Encounter for screening for human papillomavirus (HPV); Encounter for screening for malignant neoplasm of cervix from Last 3 Months Allergies Active Allergy Reactions Criticality Noted Date Comments Adhesive Tape-Silicones Rash 11/20/2017 Bandaids, steristrips, and silk tape cause reaction (redness and itching Paper tape is OK and tegaderm is OK. Medications levonorgestrel-e thinyl estradiol (LYBREL) 90-20 mcg per tablet Take 1 Tab by mouth daily. Active Active Problems Problem Noted Date Diagnosed Date Low back pain radiating to left leg 02/21/2015 screening encounter 05/04/2009 Overview (05/10/2015): ICD10 Update Auto Replacement Comments Yes Social History Tobacco Use Types Packs/Day Years Used Date Smoking Tobacco: Never Smokeless Tobacco: Never Alcohol Use Standard Drinks/Week Comments Yes 0 (1 standard drink = 0.6 oz pur e alcohol) rarely Interpersonal Safety Answer Date Record ed Physically Hurt Never 03/11/2020 Verbally Threaten Not on file 03/11/2020 Comments Yes Sex and Gender Information Value Date Recorded Sex Assigned at Not on file Legal Sex Female 18:28 EST Gender Identity Not on file Sexual Orientation Not on file Last Filed Vital Signs Vital Sign Reading Time Taken Comments Blood Pressure 125/94 01/13/2018 1218 EDT Pulse - - Temperature 36.3 ??C (97.3 ??F) 01/13/2018 1144 EDT Respiratory Rate 16 01/13/2018 1218 EDT Oxygen Saturation 100% 01/13/2018 1218 EDT Inhaled Oxygen Concentration - - Weight 65.8 kg (145 lb) 01/13/2018 1047 EDT Height 167.6 cm (5' 6) 01/13/2018 1047 EDT Body Mass Index 23.4 01/13/2018 1047 EDT Plan of Treatment Not on file Procedures Procedure Name Priority Date/Time Associated Diagnosis Comments PAP TEST Today 08/26/2024 13:22 EST Encounter for screening for human papillomavirus (HPV) Encounter for screening for malignant neoplasm of cervix HPV DNA DETECTION WITH GENOTYPING, PCR Today 08/26/2024 13:22 EST Encounter for screening for human papillomavirus (HPV) Encounter for screening for malignant neoplasm of cervix HEPATITIS C AB W REFLEX TO HCV RNA BY PCR Routine 02/25/2023 17:51 EDT from Last 3 Months or Most Recently Relevant to Health Maintenance Results * PAP TEST (08/26/2024 13:22 EST) Specimens A. Cervix and/or Endocervix , ThinPrep Imaging System with Manual Evaluation 09/07/2024 14:55 EST [facility] Specimen Adequacy Satisfactory for Evaluation - transformation zone component absent 09/07/2024 14:55 EST [facility] General Categorization Negative for intraepithelial lesion or malignancy 09/07/2024 14:55 [facility] Attestation . 09/07/2024 14:55 [facility] at 1455 Clinical History Clinical History, Signs, Symptoms, Chief Complaint, Pertaining to This Order: See below Hormone/Contracep tive Use?: Yes ?: No Post-?: No 09/07/2024 14:55 [facility] Performing Lab [facility] 09/07/2024 14:55 [facility] Scanned Images 09/07/2024 14:55 [facility] HPV High Risk type 16, PCR Negative 09/07/2024 14:55 [facility] HPV High Risk type 18, PCR Negative 09/07/2024 14:55 [facility] HPV Other High Risk Types, PCR Positive Positive for one of the following Other High Risk HPV types: 31,33, 35, 39, 45, 51, 52, 56, 58, 59, 66 and 68. 09/07/2024 14:55 [facility] Pap Test CERVIX UTERI STRUCTURE / Unknown 08/26/2024 13:22 EST 08/29/2024 9:41 EST us November Dick SANTOS PATHOLOGY ORDERABLES Final Result Performing Organization Address City/State/[facility] Co de Phone Number [facility] [address] [place] [address] * (ABNORMAL) HPV DNA DETECTION WITH GENOTYPING, PCR (08/26/2024 13:22 EST) HPV High Risk type 16, PCR Negative Negative 09/07/2024 14:55 [facility] HPV High Risk type 18, PCR Negative Negative 09/07/2024 14:55 [facility] HPV other High Risk types, PCR Positive(A) Negative 09/07/2024 14:55 [facility] Comment: Positive for one of the following Other High Risk HPV types: ??31,33, 35, 39, 45, 51, 52, 56, 58, 59, 66 and 68. Pap Test CERVIX UTERI STRUCTURE / Unknown 08/26/2024 13:22 EST 09/06/2024 12:58 EST november Dick SANTOS MICROBIOLOGY - GENERAL ORD ERABLES Final Result [facility] [address] [place] [address] * HEPATITIS C AB W REFLEX TO HCV RNA BY PCR (02/25/2023 17:51 EDT) Hep C Antibody Negative Negative 02/27/2023 10:05 EDT [facility] Blood VENOUS BLOOD / Unknown 02/25/2023 17:51 EDT 02/26/2023 17:53 EDT us Provider Outr Resulting Lab CHEMISTRY & BLOOD GA S ORDERABLES Final Result Performing Organization Address City/[facility] Co de Phone Number [facility] [address] [place] [address] from Last 3 Months or Most Recently Relevant to Health Maintenance Insurance MEDICAID [place] Care Teams Collector Of Aquarium Specimens Relationship Specialty Start Date End Date Ac Brand APRN [address] [place] [address] [address] [place], [place] [id number] PCP - General 01/30/15
--- OUTSIDE RECORDS SUMMARY | 2024-09-24 15:09 | XMS_ITS | Clinical Summary ---
Author Organization [facility] Address [address] [place] [address] Care Team Providers Care Tool Shaper Setup Operator Name Role Phone Ac Brand Mars CONKLINN Primary Care Provider [phone] Allergies Active Allergy Reactions Criticality Noted Date [...] (05/10/2015): ICD10 Update Auto Replacement Comments Yes Encounters Date Type Department Care Team Description 08/27/[address] [facility] Pathology & Laboratory Medicine - [address] [address] Dick, Genny Deyanira, TOM Encounter for screening for human papillomavirus (HPV); Encounter for screening for malignant neoplasm of cervix from Last 3 Months Surgical History Surgery Date Site/Laterality Comments HAND SURGERY Left tenosynovitis CHOLECYSTECTOMY WRIST SURGERY Left Medical History Medical History Date Comments Anxiety Family History Relation Status Comments Father Alive Mother Alive Social History Tobacco Use Types Packs/Day Years [...] on file Sexual Orientation Not on file Obstetrics History Para Term AB IAB SAB Ectopic Multiple Livin g Live Births 1 Date Outcome GA Total Labor Labor/2nd/3rd Weight Sex Type Anes PTL Kathryn A1 A5 Name Clin Current Last Filed Vital Signs Vital Sign Reading [...] 23.4 01/13/2018 1047 EDT Plan of Treatment Health Maintenance Due Date Last Done Comments Hepatitis B Vaccine (1 of 3 - 19+ 3-dose series) 11/17 COVID-19 Vaccine ( - 2023- season) 2024 RSV Immunization ( o r 60+ Years) (1 - 1-dose 75+ series) 11/18/2055 Hepatitis C Screen Completed 02/25/2023 Procedures Procedure Name Priority Date/Time Associated Diagnosis [...] Imaging System with Manual Evaluation 09/07/2024 14:55 [facility] Specimen Adequacy Satisfactory for Evaluation - transformation zone component absent 09/07/2024 14:55 [facility] General Categorization Negative for intraepithelial lesion or malignancy 09/07/2024 14:55 [facility] Attestation . 09/07/2024 14:55 [facility] at 1455 Clinical History Clinical History, Signs, Symptoms, Chief Complaint, Pertaining to This Order: See below Hormone/Contracep tive Use?: Yes ?: No Post-?: No 09/07/2024 14:55 [facility] Performing Lab [facility] 09/07/2024 14:55 [facility] Scanned Images 09/07/2024 14:55 [facility] HPV High Risk type 16, PCR Negative 09/07/2024 14:55 [facility] HPV High Risk type 18, PCR Negative 09/07/2024 14:55 [facility] HPV Other High Risk Types, PCR Positive Positive for one of the following Other High Risk HPV types: 31,33, 35, 39, 45, 51, 52, 56, 58, 59, 66 and 68. 09/07/2024 14:55 [facility] Pap Test CERVIX UTERI STRUCTURE / Unknown 08/26/2024 13:22 EST 08/29/2024 9:41 EST us November E Dick SANTOS PATHOLOGY ORDERABLES Final Result [facility] [address] [place] [address] * (ABNORMAL) HPV DNA DETECTION WITH GENOTYPING, PCR (08/26/2024 13:22 EST) HPV High Risk type 16, PCR Negative Negative 09/07/2024 14:55 [facility] HPV High Risk type 18, PCR Negative Negative 09/07/2024 14:55 EST [facility] HPV other High Risk types, PCR Positive(A) Negative 09/07/2024 14:55 EST [facility] Comment: Positive for one of the following Other High Risk HPV types: ??31,33, 35, 39, 45, 51, 52, 56, 58, 59, 66 and 68. Pap Test CERVIX UTERI STRUCTURE / Unknown 08/26/2024 13:22 EST 09/06/2024 12:58 EST us Genny E Dick SANTOS MICROBIOLOGY - GENERAL ORD ERABLES Final Result [facility] [address] [place] [address] * HEPATITIS C AB W REFLEX TO HCV RNA BY PCR (02/25/2023 17:51 EDT) Hep C Antibody Negative Negative 02/27/2023 10:05 EDT [facility] Blood VENOUS BLOOD / Unknown 02/25/2023 17:51 EDT 02/26/2023 17:53 EDT us Provider Outr Resulting Lab CHEMISTRY & BLOOD GA S ORDERABLES Final Result [facility] [address] [place] [address] from Last 3 Months or Most Recently Relevant to Health Maintenance Insurance MEDICAID [place] Care Teams Tool Shaper Setup Operator Relationship Specialty Start Date End Date Ac Brand APRN [address] [place] [address] [address] [place] [address] PCP - General 01/30/15
--- OUTSIDE RECORDS SUMMARY | 2024-09-24 15:09 | XMS_ITS ---
Author Organization Unknown Address [address] [place] [address] [phone] Phone Care Team Providers Care Physician Relations Representative Name Role Phone TIFFANYHAYLEY NOVEMBER Attending Unavailable SHANELL JAMES Primary Unavailable BASILIO Martin Secondary Unavailable Results VAGINAL SMEAR EVALUATION* - Collect Date/Time: 08/26/2024 10:43 [facility] ID: [id number] [address] [place] [address], [phone] LOINC: 37881-2 Test Value Unit Reference Range Code Code System Flag WBC s few Yeast. None Hyphae N/A Clue cells Not present TOTAL MALCOLM SCORE 1 Social History Type Status Start Date End Date Code Code Syst em Smoking History Never smoker (Never Smoked) 484377102 SNOMED CT Sex Female Hospital Discharge Instructions [...] System No Known Drug Allergies Moderate Active 415414219 SNOMED-CT Plan of Treatment LAB DRAW 15MIN 07/09/2023 LAB DRAW 15MIN 07/09/2023 LAB DRAW 15MIN 07/09/2023 LAB DRAW 15MIN 07/09/2023 Encounters Encounter Diagnosis Start Date Code Code Sys tem Gynecologic examination 08/26/2024 [id number] SN ED-CT Personal Care Team Section Performer Name Performer Role Active Date Inactive Da te
--- OUTSIDE RECORDS SUMMARY | 2024-09-24 15:09 | XMS_ITS ---
Author Organization Unknown Address [address] [place] [address] [phone] Phone Care Team Providers Care Funeral Car Chauffeur Name Role Phone ANURADHARAEArlyn TOROMCKENNA Attending Unavailable SHANELL JAMES Primary Unavailable Social History Type Status Start Date End Date Code Code Syst em Smoking History Never smoker (Never Smoked) [id number] SNOMED CT Sex Female Hospital Discharge Instructions [...] System No Known Drug Allergies Moderate Active [id number] SNOMED-CT Plan of Treatment LAB DRAW 15MIN 07/09/2023 LAB DRAW 15MIN 07/09/2023 LAB DRAW 15MIN 07/09/2023 LAB DRAW 15MIN 07/09/2023 Encounters Encounter Diagnosis Start Date Code Code Sys tem Insertion of subcutaneous contraceptive 10/22/2023 1 [id number] SNOMED-CT Personal Care Team Section Performer Name Performer Role Active Date Inactive Da sofia
[2024-09-24] MEDS: Inhaler, Assist Device 1 EACH MC (15:10)
--- OUTSIDE RECORDS SUMMARY | 2024-09-24 15:10 | XMS_ITS | Encounter Summary ---
Author Organization [facility] Address [address] [place] [address] Care Team Providers Care Chlorination Operator Name Role Phone Gus George MD Primary Care Provider + [phone] Encounter Details Date Type Department Care Team (Late st Contact Info) Description 05/04/2009 14:15 EDT - 05/04/2009 23:59 EDT Hospital En[place] [facility] [place] [address] [place] [address] Edilson Johnson MD [address] [facility], [address] [place] [address] Discharge Disposition: Home or Self Care Social History Tobacco Use Types Packs/Day Years Used Date Smoking Tobacco: Never Assessed Comments Unknown Sex and Gender Information Value Date Recorded Sex Assigned at Not on file Legal Sex Female 18:28 EST Gender Identity Not on file Sexual Orientation Not on file documented as of this encounter Discharge Disposition Disposition Code Departure Means Destination Home or Self Senior Living documented in this encounter Plan of Treatment Pending Results Name Type Priority Associated Diagnoses Date /Time OUTSIDE IMAGES - MR NEURO Imaging 01/31/2015 8:54 EDT Scheduled Orders Name Type Priority Associated Diagnoses Orde r Schedule OUTSIDE IMAGES - MR NEURO Imaging One Time for 1 Occurrences starting 01/31/2015 until 01/31/2015 documented as of this encounter Visit Diagnoses Not on filedocumented in this encounter Care Teams Chlorination Operator Relationship Specialty Start Date End Date Gus George MD [address] [facility] [address] [place] [id number] PCP - General 05/04/09 09/16/09 documented as of this encounter
--- OUTSIDE RECORDS SUMMARY | 2024-09-24 15:10 | XMS_ITS | Encounter Summary ---
Author Organization [facility] Address [address] [place] [address] Care Team Providers Care Clip And Hanger Attacher Name Role Phone Roxanne Lu Argentina CARRERA Primary Care Provider Unavailable Gus George MD Primary Care Provider + [phone] Gus George MD Primary Care Provider + [phone] Encounter Details Date Type Department Care Team (Late st Contact Info) Description 01/03/2005 Results Only [facility] [place] [facility] [address] [place] [address] Richa Cohn MD [address] [place] [address] [phone] Social History Tobacco Use Types Packs/Day Years Used Date Smoking Tobacco: Never Assessed Comments Unknown Sex and Gender Information Value Date Recorded Sex Assigned at Not on file Legal Sex Female 18:28 EST Gender Identity Not on file Sexual Orientation Not on file documented as of this encounter Plan of Treatment Not on file documented as of this encounter Procedures Procedure Name Priority Date/Time Associated Diagnosis Comments CYTOPATHOLOGY Routine 01/03/2005 0:00 EDT documented in this encounter Results * CYTOPATHOLOGY (01/03/2005 0:00 EDT) Pathology Report: CYTOPATHOLOGY REPORT Reports generated via electronic interface contain original data; however they are lacking the format of the original report. Caution should be taken when reading/interpreti ng unformatted reports. Name: ? JUDY LAFLEUR ? Accession #: ? [id number] : ? 1980 (Age: 24) ??F ?Collect Date: ? 01/03/2005 Location: ? [facility] ? Receive Date: ? 01/07/2005 Provider: ?RICHA COHN MD Copy to: ? Specimen/Source: ?ThinPrep Pap Test, Cervix/Endocervix Last Menstrual Period: ? 12/26/04 Hormonal/Contracep tive Status: ? Yes Previous Gynecologic Pathology: ? ASC-US: 08/14, undetermined significance HSIL: 11/27/04 Other: ? Colposcopy Pap and/or biopsy in progress HPVA - HPV testing requested if ASC-US on the current ThinPrep Pap test. ? SPECIMEN ADEQUACY ? Satisfactory for Evaluation - transformation zone component present GENERAL CATEGORIZATION ? Negative for Intraepithelial Lesion or Malignancy ? Document reviewed and electronically signed by: ? TANIYA Ashley(ASCP) ? Report Date: ??01/07/2005 15:34 End of Report [facility] 01/03/2005 01/07/2005 us Richa Cohn MD PATHOLOGY ORDERABLES Final Resul t [facility] [address] [place] [address] documented in this encounter Visit Diagnoses Not on filedocumented in this encounter Care Teams Clip And Hanger Attacher Relationship Specialty Start Date End Date Roxanne Lu APRN PCP - General 09/17/09 01/29/15 Gus George MD [address] [facility] [address] [place] [id number] PCP - General 05/04/09 09/16/09 Gus George MD [address] [facility] [address] [place] [id number] PCP - General 05/03/09 05/03/09 documented as of this encounter
--- OUTSIDE RECORDS SUMMARY | 2024-09-24 15:10 | XMS_ITS | Encounter Summary ---
Author Organization [facility] Address [address] [place] [address] Care Team Providers Care Wool Grower Name Role Phone Ac Brand Mars CONKLINN Primary Care Provider [phone] Encounter Details Date Type Department Care Team (Late st Contact Info) Description 01/14/2017 Results Only [facility] [phone] Genny Espinal, [facility] [address] [facility] [place] [address] Social History Tobacco Use Types Packs/Day Years Used Date Smoking Tobacco: Never Alcohol Use Standard Drinks/Week Comments Yes 0 (1 standard drink = 0.6 oz pur e alcohol) occasionally Comments Yes Sex and Gender Information Value Date Recorded Sex Assigned at Not on file Legal Sex Female 18:28 EST Gender Identity Not on file Sexual Orientation Not on file documented as of this encounter Plan of Treatment Not on file documented as of this encounter Procedures Procedure Name Priority Date/Time Associated Diagnosis Comments PAP TEST- RESULT ONLY Routine 01/14/2017 0:00 EDT documented in this encounter Results * PAP TEST- RESULT ONLY (01/14/2017 0:00 EDT) Pathology Report: CYTOPATHOLOGY REPORT Reports generated via electronic interface contain original data; however they are lacking the format of the original report. Caution should be taken when reading/interpreti ng unformatted reports. Name: ? RHYS, JUDY ? Accession #: ? [id number] ? : ? 1980 (Age: 36) ??F ?Collect Date: ? 01/14/2017 ? Location: ? [facility] ? Receive Date: ? 01/16/2017 ? Provider: EGNNY ESPINAL [facility] PRESIDENT [facility] Copy to: ? Final Report SPECIMEN ADEQUACY ? Satisfactory for Evaluation - transformation zone component present - scant squamous epithelial component GENERAL CATEGORIZATION ? Negative for Intraepithelial Lesion or Malignancy ?? Hormonal/Contracep tive status: Oral contraceptives Other: Paper Box Cutter Clinical/Treatment Hx - None Specimen/Source: ??Pap Test, Cervix, ThinPrep Imaging System with manual evaluation Document reviewed and electronically signed by: ? Kerrie Leon, CT(ASCP)(IAC) ? Report ??Date: 01/27/2017 15:16 HPV with Pap Test ? Date Ordered: ? 01/27/2017 ? Status: ?? Signed Out ?Date Complete: ? 01/28/2017 ? By: ??System Interface ? Date Reported: ? 01/28/2017 ? Interpretation RESULT: Positive for high or intermediate risk HPV. E6 OR E7 mRNA from one or more types of HPV types 16,18,31, 33,35,39,45,51,52, 56,58,59,66, and 68 is detected by cosmetic sales consultant mediated amplification. High and intermediate risk HPV types are associated with most squamous intraepithelial lesions and cervical cancers. Comments Document reviewed and electronically signed by: ? System Interface ? Report date: 01/28/2017 By the signature above, the attending physician certifies that he/she has personally conducted a gross and/or microscopic examination of the described specimens and rendered or confirmed the above diagnosis. End of Report [facility] 01/14/2017 01/16/2017 november Dick SANTOS PATHOLOGY ORDERABLES Final Result [facility] [address] [place] [address] documented in this encounter Visit Diagnoses Not on filedocumented in this encounter Care Teams Wool Grower Relationship Specialty Start Date End Date Ac Brand APRN [address] [place] [address] [address] [place] [address] PCP - General 01/30/15 documented as of this encounter
--- OUTSIDE RECORDS SUMMARY | 2024-09-24 15:10 | XMS_ITS | Encounter Summary ---
Author Organization [facility] Address [address] [place] [address] Care Team Providers Care Cyanide Pot Tender Name Role Phone Lindsay Last APRN Primary Care Provider Unavailable Gus George MD Primary Care Provider + [phone] Gus George MD Primary Care Provider + [phone] Encounter Details Date Type Department Care Team (Late st Contact Info) Description 08/20/2004 Results Only [facility] [place] [facility] [address] [place] [address] Lindsay Last APRN Social History Tobacco Use Types Packs/Day Years [...] Procedure Name Priority Date/Time Associated Diagnosis Comments HPV DETECTION, HIGH RISK TYPES Routine 08/20/2004 7:42 EST CYTOPATHOLOGY Routine 08/20/2004 0:00 EST documented in this encounter Results * HUMAN PAPILLOMA VIRUS DNA TEST (08/20/2004 7:42 EST) Specimen Description Cervix, ThinPrep vial [facility] Result Sample quantity insufficient for testing. Credit Issued [facility] Report Status Final [id number] [facility] 08/20/2004 7:42 EST 08/28/2004 7:42 EST us Lindsay Last APRN MICROBIOLOGY - GENERAL ORDERABLES Final Result [facility] [address] [place] [address] * CYTOPATHOLOGY (08/20/2004 0:00 EST) Pathology Report: CYTOPATHOLOGY REPORT Reports generated via electronic interface contain original data; however they are lacking the format of the original report. Caution should be taken when reading/interpreti ng unformatted reports. Name: ? JUDY LAFLEUR ? Accession #: ? [id number] : ? 1980 (Age: 23) ??F ?Collect Date: ? 08/20/2004 Location: ? [facility] ? Receive Date: ? 08/22/2004 Provider: ?LINDSAY LAST APRN Copy to: ? Specimen/Source: ?ThinPrep Pap Test, Cervix/Endocervix Last Menstrual Period: ? 08/07/04 Other: ? HPVA - HPV testing requested if ASC-US on the current ThinPrep Pap test. ? SPECIMEN ADEQUACY ? Satisfactory for Evaluation - transformation zone component present GENERAL CATEGORIZATION ? Epithelial Cell Abnormality INTERPRETATION ? Squamous Cell Abnormality - Atypical squamous cells, undetermined significance. EDUCATIONAL NOTES/RECOMMENDATI ONS ? [facility] recommends following the 2001 Consensus Guidelines for the Management of Women with Cervical Cytological Abnormalities (HAILE,2002;287:212 0-9). Management algorithms have been distributed by [facility] and are available online at www.[email or web address].org. ? Document reviewed and electronically signed by: ? AMISHA RHODES MD ? Report Date: ??08/27/2004 13:57 End of Report [facility] 08/20/2004 08/22/2004 us Lindsay Last APRN PATHOLOGY ORDERABLES Fi nal Result [facility] [address] [place] [address] documented in this encounter Visit Diagnoses Not on filedocumented in this encounter Care Teams Cyanide Pot Tender Relationship Specialty Start Date End Date Lindsay Last APRN PCP - General 09/17/09 01/29/15 Gus George MD [address] [place] [phone] PCP - General 05/04/09 09/16/09 Gus George MD [address] [place] [address] PCP - General 05/03/09 05/03/09 documented as of this encounter
--- OUTSIDE RECORDS SUMMARY | 2024-09-24 15:10 | XMS_ITS | Encounter Summary ---
Author Organization [facility] Address [address] [place] [address] Care Team Providers Care Qualitative Executive Researcher Name Role Phone CathieLatrellgiselle Crews APRN Primary Care Provider [phone] Encounter Details Date Type Department Care Team (Latest Contact Info) Description 05/04/2023 13:00 EDT - 05/04/2023 23:59 EDT Hospital Encounter [facility] - [address] [address] AMA (advanced maternal age) multigravida 35+, second trimester Discharge Disposition: Home or Self Care Social [...] on file documented as of this encounter Medications at Time of Discharge levonorgestrel-eth inyl estradiol (LYBREL) 90-20 mcg per tablet Take 1 Tab by mouth daily. documented as of this encounter Discharge Disposition Disposition Code Departure Means Destination Home or Self Care documented in this encounter Plan of Treatment Not on file documented as of this encounter Procedures Procedure Name Priority Date/Time Associated Diagnosis Comments US OB DETAILED Routine 05/04/2023 14:14 EDT AMA (advanced maternal age) multigravida 35+, second trimester documented in this encounter Results * US OB DETAILED (05/04/2023 14:14 EDT) Anatomical Region Laterality Modality Pelvis Ultrasound 05/04/2023 13:2 5 EDT Narrative 05/04/2023 14:34 EDT Indication ======== Advanced maternal age. History ====== General History Height 168 cm Height (ft) ?5 ft Height (in) ?6 in Previous Outcomes ?3 Para ?? 2 Pregnancies delivered at term (T) ??2 Pregnancies delivered (P) ??0 Abortions (A) ??0 Living children (L) ?2 Maternal Assessment Height 168 cm Height (ft) ?5 ft Height (in) ?6 in Physical Exam Initial weight 71 kg Initial weight (lb) ?157 lb Initial BMI ?25.34 kg/m?? ========= Number of fetuses: 1 Dating ====== Method of dating: ??based on ultrasound Previous Ultrasound on: ?02/16/2023 Type of prior assessment: ??GA GA at prior assessment date ?9 w + 1 d GA by previous U/S 20 w + 1 d ALYSE by previous Ultrasound: ?09/20/2023 Ultrasound examination on: 05/04/2023 GA by U/S based upon: ??AC, BPD, Femur, HC GA by U/S ??20 w + 5 d ALYSE by U/S: ?09/16/2023 Assigned: ??based on ultrasound (GA), selected on 05/04/2023 Assigned GA ?20 w + 1 d Assigned ALYSE: ??09/20/2023 General Evaluation Cardiac activity Present. FHR 152 bpm. movements: visualized. Presentation: variable Placenta: posterior, fundal Umbilical cord: Cord vessels: 3 vessel cord. Insertion site: placental insertion: normal Amniotic fluid: Amount of AF: normal. MVP 5.8 cm Biometry Standard BPD ?48.5 mm 20w 5d 71% Hadlock OFD ?63.9 mm 21w 5d 93% Maria Luisa HC 180.1 mm ?20w 3d 59% [place] Cerebellum tr ??20.5 mm 20w 2d 55% Way Nuchal fold ?3.9 mm AC 161.3 mm ?21w 2d 78% Hadlock Femur ??32.3 mm 20w 2d 62% Maria Luisa Humerus ?31.3 mm 20w 3d 64% Maria Luisa HC / AC ?1.12 ? 21% Hadlock EFW ?369 g EFW (lb) ?? 0 lb EFW (oz) ?? 13 oz EFW by: ?Hadlock ([id number]) Extended Tibia ??28.6 mm 20w 3d 65% Maria Luisa Fibula 28.9 mm 20w 2d 54% Maria Luisa Foot ?? 33.3 mm ??54% Chitty Radius 26.6 mm 19w 6d 48% Maria Luisa Ulna ?? 29.0 mm 20w 6d 58% Maria Luisa Cd Mixer Helper 5.2 mm CM 6.8 mm ?? 92% Nicolaides Nasal bone 5.9 mm Head / Face / Neck Cephalic index 0.76 ? 20% Nicolaides Nasal bone: ?present Extremities / Bony Struc FL / BPD ?? 0.67 ? 17% Hadlock FL / HC ?0.18 ? 22% Hadlock FL / AC ?0.20 ? 8% Hadlock Other Structures FHR ?152 bpm Anatomy Cranium: ?? normal Lateral ventricles: ?normal Choroid plexus: ?normal Midline falx: ??normal Cavum septi pellucidi: normal Cerebellum: ?normal Cisterna magna: ?normal Head / Neck Parenchyma: ?normal Cerebellar lobes: ??normal Vermis: ?normal Neck: ??normal Nuchal fold: ?? normal Lips: ??normal Profile: ?? normal Nose: ??normal Face Nasal bone: ?present Maxilla: ?? normal Mandible: ??normal 4-chamber view: ?normal RVOT view: normal LVOT view: normal 3-vessel view: normal 7-ylazzi-aggpruq view: normal Heart / Thorax Aortic arch view: ??normal SVC: ?? normal IVC: ?? normal Rt lung: ?? normal Lt lung: ?? normal Diaphragm: normal Cord insertion: ?normal Stomach: ?? normal Bladder: ?? normal Genitals: ??normal Abdomen Abdom. wall: ?? normal Rt kidney: normal Lt kidney: normal Liver: normal Cervical spine: ?normal Thoracic spine: ?normal Lumbar spine: ??normal Sacral spine: ??normal Arms: ??normal Legs: ??normal Rt arm: ?normal Lt arm: ?normal Rt hand: ?? normal Lt hand: ?? normal Rt leg: ?normal Lt leg: ?normal Rt foot: ?? normal Lt foot: ?? normal Skeleton: ??normal sex: female Wants to know sex: ?? yes Aneuploidy Screening Age ?42 yrs Echogenic focus: ?? no Include: ?? intracardiac echogenic focus Include: ?? ventriculomegaly Include: ?? nuchal fold Include: ?? echogenic bowel Include: ?? mild hydronephrosis Ventriculomegaly: ??no Nuchal fold: ?? normal Echogenic bowel: ?? no Pyelectasis: ?? no Short femur: ?? no Include: ?? short humerus Include: ?? nasal bone Short humerus: no Nasal bone: ?present Display risk: ??Risk at time of screening Other: She has had normal results on a cell-free DNA in maternal serum test. Maternal Structures Uterus / Cervix Uterus: ?Appears normal Cervix: ?Appears normal Approach: ??Transabdominal Cervical length ?34.7 mm Ovaries / Tubes / Adnexa Rt ovary: ??Visualized, normal appearance Lt ovary: ??Visualized, normal appearance Method ====== Transabdominal ultrasound examination, Voluson E22. View: Sufficient Impression ========= [id number] Obstetrical ultrasound with and maternal evaluation, including detailed anatomic examination This is a ortega gestation. Biometry is consistent with earlier ultrasound dating. Anatomy appears normal as noted above; however, ultrasound cannot detect all anomalies. As per the [facility] guidelines, the following were evaluated and were normal unless noted above: the cerebellum (including lobes and vermis), facial profile, the chest (including examination for masses, effusion, integrity of both sides of the diaphragm and lung parenchyma), abdomen for ascites, 12-long bones with normal architecture/position of limbs, hands and feet, placental insertion site of the umbilical cord and placenta for masses. The amniotic fluid volume is normal. There is trunk and extremity movement noted. Follow-up ======== Follow-up as clinically indicated. DATE OF SERVICE: 05/04/2023 Procedure Note Edilson Johnson MD - 05/04/2023 Indication ======== Advanced maternal age. History ====== General History Height 168 cm Height (ft) 5 ft Height (in) 6 in Previous Outcomes 3 Para 2 Pregnancies delivered at term (T) 2 Pregnancies delivered (P) 0 Abortions (A) 0 Living children (L) 2 Maternal Assessment Height 168 cm Height (ft) 5 ft Height (in) 6 in Physical Exam Initial weight 71 kg Initial weight (lb) 157 lb Initial BMI 25.34 kg/m?? ========= Number of fetuses: 1 Dating ====== Method of dating: based on ultrasound Previous Ultrasound on: 02/16/2023 Type of prior assessment: GA GA at prior assessment date 9 w + 1 d GA by previous U/S 20 w + 1 d ALYSE by previous Ultrasound: 09/20/2023 Ultrasound examination on: 05/04/2023 GA by U/S based upon: AC, BPD, Femur, HC GA by U/S 20 w + 5 d ALYSE by U/S: 09/16/2023 Assigned: based on ultrasound (GA), selected on 05/04/2023 Assigned GA 20 w + 1 d Assigned ALYSE: 09/20/2023 General Evaluation Cardiac activity Present. FHR 152 bpm. movements: visualized.Presentation: variable Placenta: posterior, fundal Umbilical cord: Cord vessels: 3 vessel cord. Insertion site: placentalinsertion: normal Amniotic fluid: Amount of AF: normal. MVP 5.8 cm Biometry Standard BPD 48.5 mm 20w 5d 71% Hadlock OFD 63.9 mm 21w 5d 93% Maria Luisa HC 180.1 mm 20w 3d 59% [place] Cerebellum tr 20.5 mm 20w 2d 55% Way Nuchal fold 3.9 mm AC 161.3 mm 21w 2d 78% Hadlock Femur 32.3 mm 20w 2d 62% Maria Luisa Humerus 31.3 mm 20w 3d 64% Maria Luisa HC / AC 1.12 21% Hadlock EFW 369 g EFW (lb) 0 lb EFW (oz) 13 oz EFW by: Hadlock ([id number]) Extended Tibia 28.6 mm 20w 3d 65% Maria Luisa Fibula 28.9 mm 20w 2d 54% Maria Luisa Foot 33.3 mm 54% Chitty Radius 26.6 mm 19w 6d 48% Maria Luisa Ulna 29.0 mm 20w 6d 58% Maria Luisa Cd Mixer Helper 5.2 mm CM 6.8 mm 92% Nicolaides Nasal bone 5.9 mm Head / Face / Neck Cephalic index 0.76 20% Nicolaides Nasal bone: present Extremities / Bony Struc FL / BPD 0.67 17% Hadlock FL / HC 0.18 22% Hadlock FL / AC 0.20 8% Hadlock Other Structures FHR 152 bpm Anatomy Cranium: normal Lateral ventricles: normal Choroid plexus: normal Midline falx: normal Cavum septi pellucidi: normal Cerebellum: normal Cisterna magna: normal Head / Neck Parenchyma: normal Cerebellar lobes: normal Vermis: normal Neck: normal Nuchal fold: normal Lips: normal Profile: normal Nose: normal Face Nasal bone: present Maxilla: normal Mandible: normal 4-chamber view: normal RVOT view: normal LVOT view: normal 3-vessel view: normal 3-yqzaer-trxkbkc view: normal Heart / Thorax Aortic arch view: normal SVC: normal IVC: normal Rt lung: normal Lt lung: normal Diaphragm: normal Cord insertion: normal Stomach: normal Bladder: normal Genitals: normal Abdomen Abdom. wall: normal Rt kidney: normal Lt kidney: normal Liver: normal Cervical spine: normal Thoracic spine: normal Lumbar spine: normal Sacral spine: normal Arms: normal Legs: normal Rt arm: normal Lt arm: normal Rt hand: normal Lt hand: normal Rt leg: normal Lt leg: normal Rt foot: normal Lt foot: normal Skeleton: normal sex: female Wants to know sex: yes Aneuploidy Screening Age 42 yrs Echogenic focus: no Include: intracardiac echogenic focus Include: ventriculomegaly Include: nuchal fold Include: echogenic bowel Include: mild hydronephrosis Ventriculomegaly: no Nuchal fold: normal Echogenic bowel: no Pyelectasis: no Short femur: no Include: short humerus Include: nasal bone Short humerus: no Nasal bone: present Display risk: Risk at time of screening Other: She has had normal results on a cell-free DNA in maternalserum test. Maternal Structures Uterus / Cervix Uterus: Appears normal Cervix: Appears normal Approach: Transabdominal Cervical length 34.7 mm Ovaries / Tubes / Adnexa Rt ovary: Visualized, normal appearance Lt ovary: Visualized, normal appearance Method ====== Transabdominal ultrasound examination, [place]on E22. View: Sufficient Impression ========= [id number] Obstetrical ultrasound with and maternal evaluation, includingdetailed anatomic examination This is a ortega gestation. Biometry is consistent with earlier ultrasound dating. Anatomy appearsnormal as noted above; however, ultrasound cannot detect allfetal anomalies. As per the [facility] guidelines, the following were evaluated and were normalunless noted above: the cerebellum (including lobes and vermis), facialprofile, the chest (including examination for masses, effusion, integrity of both sides ofthe diaphragm and lung parenchyma), abdomen for ascites, 12-long boneswith normal architecture/position of limbs, hands and feet, placental insertion siteof the umbilical cord and placenta for masses. The amniotic fluid volume is normal. There is trunk and extremitymovement noted. Follow-up ======== Follow-up as clinically indicated. DATE OF SERVICE: 05/04/2023 Marianela Denney CN IMG US OB ORDERABLES Final Resu lt documented in this encounter Visit Diagnoses Diagnosis AMA (advanced maternal age) multigravida 35+, second trimester documented in this encounter Care Teams Qualitative Executive Researcher Relationship Specialty Start Date End Date Ac Brand APRN [address] [place] [address] [address] [place] [address] PCP - General 01/30/15 documented as of this encounter
--- OUTSIDE RECORDS SUMMARY | 2024-09-24 15:10 | XMS_ITS | Encounter Summary ---
Author Organization [facility] Address [address] [place] [address] Care Team Providers Care Repeater Chief Name Role Phone Ac Brand Mars DEANDRE Primary Care Provider [phone] Encounter Details Date Type Department Care Team (Late st Contact Info) Description 01/29/2018 Results Only [facility] [phone] Dick Aidan E, TARGET PROTECTION SPECIALIST [address] [place] [address] Social History Tobacco Use Types Packs/Day Years Used Date Smoking Tobacco: Never Smokeless Tobacco: Never Alcohol Use Standard Drinks/Week Comments Yes 0 (1 standard drink = 0.6 oz pur e alcohol) rarely Comments Yes Sex and Gender Information Value Date Recorded Sex Assigned at Not on file Legal Sex Female 18:28 EST Gender Identity Not on file Sexual Orientation Not on file documented as of this encounter Plan of Treatment Not on file documented as of this encounter Procedures Procedure Name Priority Date/Time Associated Diagnosis Comments PAP TEST- RESULT ONLY Routine 01/29/2018 0:00 EDT documented in this encounter Results * PAP TEST- RESULT ONLY (01/29/2018 0:00 EDT) Pathology Report: CYTOPATHOLOGY REPORT Reports generated via electronic interface contain original data; however they are lacking the format of the original report. Caution should be taken when reading/interpreti ng unformatted reports. Name: ? JUDY LAFLEUR ? Accession #: ? [id number] ? : ? 1980 (Age: 37) ??F ?Collect Date: ? 01/29/2018 ? Location: ? [facility] ? Receive Date: ? 02/01/2018 ? Provider: AIDAN ESPINAL NP Copy to: ? Final Report SPECIMEN ADEQUACY ? Satisfactory for Evaluation - transformation zone component present - scant squamous epithelial component secondary to excessive blood GENERAL CATEGORIZATION ? Negative for Intraepithelial Lesion or Malignancy ?? Infection History: Pos for HPV: 2017 Other: Additional clinical information: Z12.4 Z11.51 Specimen/Source: ??Pap Test, Cervix/Endocervix, ThinPrep Imaging System with manual evaluation Document reviewed and electronically signed by: ? TANIYA Ross(ASCP) ? Report ??Date: 02/08/2018 11:42 HPV with Pap Test ? Date Ordered: ? 02/08/2018 ? Status: ?? Signed Out ?Date Complete: ? 02/09/2018 ? By: ??System Interface ? Date Reported: ? 02/09/2018 ? Interpretation RESULT: Negative for HPV. No E6 or E7 mRNA is detected from HPV types 16,18,31,33,35, 39,45,51,52,56,58, 59,66, and 68 by systems software designer mediated amplification. Comments Document reviewed and electronically signed by: ? System Interface ? Report date: 02/09/2018 By the signature above, the attending physician certifies that he/she has personally conducted a gross and/or microscopic examination of the described specimens and rendered or confirmed the above diagnosis. End of Report [facility] 01/29/2018 02/01/2018 November Dick SANTOS PATHOLOGY ORDERABLES Final Result [facility] [address] [place] [address] documented in this encounter Visit Diagnoses Not on filedocumented in this encounter Care Teams Repeater Chief Relationship Specialty Start Date End Date Ac Brand APRN [address] [place] [address] [address] [place] [address] PCP - General 01/30/15 documented as of this encounter
--- OUTSIDE RECORDS SUMMARY | 2024-09-24 15:10 | XMS_ITS | Encounter Summary ---
Author Organization [facility] Address [address] [place] [address] Care Team Providers Care Basket Assembler Name Role Phone Roxanne Lu Argentina CARRERA Primary Care Provider Unavailable Gus George MD Primary Care Provider + [phone] Gus George MD Primary Care Provider + [phone] Encounter Details Date Type Department Care Team (Late st Contact Info) Description 07/29/2002 Results Only [facility] [place] conversion [address] [place], [place] [phone] Karina Singh CNM Social History Tobacco Use Types Packs/Day Years [...] Priority Date/Time Associated Diagnosis Comments CYTOPATHOLOGY Routine 07/29/2002 0:00 EST documented in this encounter Results * CYTOPATHOLOGY (07/29/2002 0:00 EST) Pathology Report: CYTOPATHOLOGY REPORT Reports generated via electronic interface contain original data; however they are lacking the format of the original report. Caution should be taken when reading/interpreti ng unformatted reports. Name: ? BEVERLY LAFLEURN Sandy ? Accession #: ? [id number] : ? 1980 (Age: 21) ??F ?Collect Date: ? 07/29/2002 Location: ? [facility] ? Receive Date: ? 08/04/2002 Provider: ?KARINA MARTINEZMALOU CNM Copy to: ? Specimen/Source: ?ThinPrep Pap Test, Cervix/Endocervix Last Menstrual Period: ? 06/29/02 Menstrual/Pregnanc y Status: ? Post Hormonal/Contracep tive Status: ? Yes Other: ? HPVA - HPV testing requested if ASC-US on the current ThinPrep Pap test. ? SPECIMEN ADEQUACY ? Satisfactory for Evaluation - transformation zone component present GENERAL CATEGORIZATION ? Negative for Intraepithelial Lesion or Malignancy ? Document reviewed and electronically signed by: ? Kerrie Leon, TANIYA(ASCP)(IAC) ? Report Date: ??08/08/2002 10:43 End of Report [facility] 07/29/2002 08/04/2002 us Karina Martinezmalou CNM PATHOLOGY ORDERABLES Final Resu lt [facility] [address] [place] [address] documented in this encounter Visit Diagnoses Not on filedocumented in this encounter Care Teams Basket Assembler Relationship Specialty Start Date End Date Roxanne Lu, MANUFACTURING MANAGEMENT ASSOCIATE PCP - General 09/17/09 01/29/15 Gus George MD [address] [place] [phone] PCP - General 05/04/09 09/16/09 Gus George MD [address] [place] [phone] PCP - General 05/03/09 05/03/09 documented as of this encounter
--- OUTSIDE RECORDS SUMMARY | 2024-09-24 15:10 | XMS_ITS | Encounter Summary ---
Author Organization [facility] Address [address] [place] [address] Care Team Providers Care Weir Fisherman Name Role Phone Roxanne Lu Argentina CARRERA Primary Care Provider Unavailable Gus George MD Primary Care Provider + [phone] Gus George MD Primary Care Provider + [phone] Encounter Details Date Type Department Care Team (Late st Contact Info) Description 07/31/2006 Results Only [facility] [place] conversion [address] [place] [address] Richa Cohn MD [address] [place] [phone] Social History Tobacco Use Types Packs/Day Years [...] Priority Date/Time Associated Diagnosis Comments CYTOPATHOLOGY Routine 07/31/2006 0:00 EST documented in this encounter Results * CYTOPATHOLOGY (07/31/2006 0:00 EST) Pathology Report: CYTOPATHOLOGY REPORT Reports generated via electronic interface contain original data; however they are lacking the format of the original report. Caution should be taken when reading/interpreti ng unformatted reports. Name: ? JUDY LAFLEUR ? Accession #: ? [id number] : ? 1980 (Age: 25) ??F ?Collect Date: ? 07/31/2006 Location: ? [facility] ? Receive Date: ? 08/05/2006 Provider: ?RICHA COHN MD Copy to: ? Specimen/Source: ?ThinPrep Pap Test, Cervix/Endocervix, processed on [employer] ThinPrep Imaging System, with manual evaluation Last Menstrual Period: ? 07/13/06 Hormonal/Contracep tive Status: ? Yes Previous Gynecologic Pathology: ? LSIL: 11/12 Treatment History: ? Colposcopy: 12/12 wnl Other: ? Additional clinical information: Paps 12/12, 06/14 & 12/13 wnl HPVA - HPV testing requested if ASC-US on the current ThinPrep Pap test. ? SPECIMEN ADEQUACY ? Satisfactory for Evaluation - transformation zone component present GENERAL CATEGORIZATION ? Negative for Intraepithelial Lesion or Malignancy ? Document reviewed and electronically signed by: ? JUAN Ashley(ASCP) ? Report Date: ??08/11/2006 15:59 End of Report [facility] 07/31/2006 08/05/2006 us Richa Cohn MD PATHOLOGY ORDERABLES Final Resul t [facility] [address] [place] [address] documented in this encounter Visit Diagnoses Not on filedocumented in this encounter Care Teams Weir Fisherman Relationship Specialty Start Date End Date Roxanne Lu APRN PCP - General 09/17/09 01/29/15 Gus George MD [address] [place] [phone] PCP - General 05/04/09 09/16/09 Gus George MD [address] [place] [phone] PCP - General 05/03/09 05/03/09 documented as of this encounter
--- OUTSIDE RECORDS SUMMARY | 2024-09-24 15:10 | XMS_ITS | Encounter Summary ---
Author Organization [facility] Address [address] [place] [address] Care Team Providers Care Dispatcher Ship Pilot Name Role Phone Ac Brand Mars CARRERA Primary Care Provider [phone] Encounter Details Date Type Department Care Team (Late st Contact Info) Description 02/26/2023 Lab Requisition [facility] Pathology & Laboratory Medicine - [address] [address] Outr Resulting Lab, Provider Social History Tobacco Use Types Packs/Day Years Used Date Smoking Tobacco: Never Assessed Interpersonal Safety Answer Date Record ed Physically [...] Procedure Name Priority Date/Time Associated Diagnosis Comments HEPATITIS B SURFACE ANTIGEN Routine 02/25/2023 17:51 EDT documented in this encounter Results * HEPATITIS B SURFACE ANTIGEN (02/25/2023 17:51 EDT) Hep B Surface Ag Negative Negative 02/27/2023 10:38 EDT [facility] Blood VENOUS BLOOD / Unknown 02/25/2023 17:51 EDT 02/26/2023 17:53 EDT us Provider Outr Resulting Lab CHEMISTRY & BLOOD GA S ORDERABLES Final Result [facility] [address] [place] [address] documented in this encounter Visit Diagnoses Not on filedocumented in this encounter Care Teams Dispatcher Ship Pilot Relationship Specialty Start Date End Date Ac Brand APRN [address] [place] [address] [address] [place] [address] PCP - General 01/30/15 documented as of this encounter
--- OUTSIDE RECORDS SUMMARY | 2024-09-24 15:10 | XMS_ITS | Encounter Summary ---
Author Organization [facility] Address [address] [place] [address] Care Team Providers Care Emergency Vehicle Operator Name Role Phone Roxanne Lu Argentina CARRERA Primary Care Provider Unavailable Gus George MD Primary Care Provider + [phone] Gus George MD Primary Care Provider + [phone] Encounter Details Date Type Department Care Team (Late st Contact Info) Description 07/22/2007 Results Only [facility] conversion [address] [place] [address] Richa Cohn MD [address] [place] [phone] Social History Tobacco Use Types Packs/Day Years [...] Priority Date/Time Associated Diagnosis Comments CYTOPATHOLOGY Routine 07/22/2007 0:00 EST documented in this encounter Results * CYTOPATHOLOGY (07/22/2007 0:00 EST) Pathology Report: CYTOPATHOLOGY REPORT Reports generated via electronic interface contain original data; however they are lacking the format of the original report. Caution should be taken when reading/interpreti ng unformatted reports. Name: ? JUDY LAFLEUR ? Accession #: ? [id number] : ? 1980 (Age: 26) ??F ?Collect Date: ? 07/22/2007 Location: ? [facility] ? Receive Date: ? 07/26/2007 Provider: ?RICHA COHN MD Copy to: ? Specimen/Source: ?ThinPrep Pap Test, Cervix/Endocervix, processed on [employer] ThinPrep Imaging System, with manual evaluation Last Menstrual Period: ? 07/12/07 Hormonal/Contracep tive Status: ? Yes Previous Gynecologic Pathology: ? LSIL: 11/12 Treatment History: ? Colposcopy: 12/12 nl, paps wnl since Other: ? HPVA - HPV testing requested if ASC-US on the current ThinPrep Pap test. ? SPECIMEN ADEQUACY ? Satisfactory for Evaluation - transformation zone component present GENERAL CATEGORIZATION ? Negative for Intraepithelial Lesion or Malignancy ? Document reviewed and electronically signed by: ? TANIYA Ashley(ASCP) ? Report Date: ??07/28/2007 08:29 End of Report [facility] 07/22/2007 07/26/2007 us Richa Cohn MD PATHOLOGY ORDERABLES Final Resul t [facility] [address] [place] [address] documented in this encounter Visit Diagnoses Not on filedocumented in this encounter Care Teams Emergency Vehicle Operator Relationship Specialty Start Date End Date Roxanne Lu APRN PCP - General 09/17/09 01/29/15 Gus George MD [address] [place] [phone] PCP - General 05/04/09 09/16/09 Gus George MD [address] [place] [phone] PCP - General 05/03/09 05/03/09 documented as of this encounter
--- OUTSIDE RECORDS SUMMARY | 2024-09-24 15:10 | XMS_ITS | Encounter Summary ---
Author Organization [facility] Address [address] [place] [address] Care Team Providers Care Marking Room Supervisor Name Role Phone Roxanne Lu Argentina CARRERA Primary Care Provider Unavailable Gus George MD Primary Care Provider + [phone] Gus George MD Primary Care Provider + [phone] Encounter Details Date Type Department Care Team (Late st Contact Info) Description 01/07/2006 Results Only [facility] [place] [address] [place] [address] Richa Cohn MD [address] [place] [address] [phone] Social History Tobacco Use Types Packs/Day Years [...] Priority Date/Time Associated Diagnosis Comments CYTOPATHOLOGY Routine 01/07/2006 0:00 EDT documented in this encounter Results * CYTOPATHOLOGY (01/07/2006 0:00 EDT) Pathology Report: CYTOPATHOLOGY REPORT Reports generated via electronic interface contain original data; however they are lacking the format of the original report. Caution should be taken when reading/interpreti ng unformatted reports. Name: ? RHYS JUDY Sandy ? Accession #: ? [id number] : ? 1980 (Age: 25) ??F ?Collect Date: ? 01/07/2006 Location: ? [facility] ? Receive Date: ? 01/09/2006 Provider: ?RICHA COHN MD Copy to: ? Specimen/Source: ?ThinPrep Pap Test, Cervix/Endocervix, processed on [employer] ThinPrep Imaging System, with manual evaluation Last Menstrual Period: ? 12/25/05 Hormonal/Contracep tive Status: ? Yes Previous Gynecologic Pathology: ? LSIL: 11/12 Treatment History: ? Colposcopy: 12/12 nl Other: ? Additional clinical information: Paps 12/12 & 06/14 wnl HPVA - HPV testing requested if ASC-US on the current ThinPrep Pap test. ? SPECIMEN ADEQUACY ? Satisfactory for Evaluation - transformation zone component present GENERAL CATEGORIZATION ? Negative for Intraepithelial Lesion or Malignancy ? Document reviewed and electronically signed by: ? TANIYA Navarrete(ASCP) ? Report Date: ??01/13/2006 11:07 End of Report [facility] 01/07/2006 01/09/2006 us Richa Cohn MD PATHOLOGY ORDERABLES Final Resul t [facility] [address] [place] [address] documented in this encounter Visit Diagnoses Not on filedocumented in this encounter Care Teams Marking Room Supervisor Relationship Specialty Start Date End Date Roxanne Lu APRN PCP - General 09/17/09 01/29/15 Gus George MD [address] [place] [phone] PCP - General 05/04/09 09/16/09 Gus George MD [address] [place] [phone] PCP - General 05/03/09 05/03/09 documented as of this encounter
--- OUTSIDE RECORDS SUMMARY | 2024-09-24 15:10 | XMS_ITS | Encounter Summary ---
Author Organization [facility] Address [address] [place] [address] Care Team Providers Care Can Coverer Name Role Phone Ac Brand Mars DEANDRE Primary Care Provider [phone] Encounter Details Date Type Department Care Team (Late st Contact Info) Description 04/08/2019 Results Only [facility] [phone] Neetu Naqvi, MIKAL [address] [facility] [address] [place] [address] Social History Tobacco Use Types Packs/Day Years [...] Diagnosis Comments PAP TEST- RESULT ONLY Routine 04/08/2019 0:00 EDT documented in this encounter Results * PAP TEST- RESULT ONLY (04/08/2019 0:00 EDT) Pathology Report: CYTOPATHOLOGY REPORT Reports generated via electronic interface contain original data; however they are lacking the format of the original report. Caution should be taken when reading/interpreti ng unformatted reports. Name: ? JUDY LAFLEUR ? Accession #: ? [id number] ? : ? 1980 (Age: 38) ??F ?Collect Date: ? 04/08/2019 ? Location: ? [facility] ? Receive Date: ? 04/12/2019 ? Provider: NEETU NAQVI CNM Copy to: ? Final Report SPECIMEN ADEQUACY ? Satisfactory for Evaluation - transformation zone component present GENERAL CATEGORIZATION ? Negative for Intraepithelial Lesion or Malignancy INTERPRETATION ? Reactive cellular changes associated with inflammation present (includes repair). Last Menstrual Period: 03/28 Infection History: Pos for HPV: 2017 Other: Additional clinical information: Z12.4 Z11.51 Additional clinical information: Bleeding during sex Specimen/Source: ??Pap Test, Cervix/Endocervix, ThinPrep Imaging System with manual evaluation Document reviewed and electronically signed by: ? RADHA NGUYEN MD ? Report ??Date: 04/15/2019 12:59 HPV with Pap Test ? Date Ordered: ? 04/15/2019 ? Status: ?? Signed Out ?Date Complete: ? 04/19/2019 ? By: ??System Interface ? Date Reported: ? 04/19/2019 ? Interpretation RESULT: Negative for HPV. No E6 or E7 mRNA is detected from HPV types 16,18,31,33,35, 39,45,51,52,56,58, 59,66, and 68 by radiological technician mediated amplification. Comments Document reviewed and electronically signed by: ? System Interface ? Report date: 04/19/2019 By the signature above, the attending physician certifies that he/she has personally conducted a gross and/or microscopic examination of the described specimens and rendered or confirmed the above diagnosis. End of Report [facility] 04/08/2019 04/12/2019 Neetu Naqvi [facility] PATHOLOGY ORDERABLES Final R esult [facility] [address] [place] [address] documented in this encounter Visit Diagnoses Not on filedocumented in this encounter Care Teams Can Coverer Relationship Specialty Start Date End Date Ac Brand APRN [address] [place] [address] [address] [place] [address] PCP - General 01/30/15 documented as of this encounter
--- OUTSIDE RECORDS SUMMARY | 2024-09-24 15:10 | XMS_ITS | Encounter Summary ---
Author Organization [facility] Address [address] [place] [address] Care Team Providers Care Apple Packing Header Name Role Phone Roxanne Lu APRN Primary Care Provider Unavailable Encounter Details Date Type Department Care Team (Late st Contact Info) Description 02/03/2011 Results Only [facility] Services - [facility] [place] [place] [address] [place], [place] [id number] Terrence Cohn MD [address] [place] [address] [address] [place], [place] [phone] Social History Tobacco Use Types Packs/Day Years Used Date Smoking Tobacco: Never Assessed Comments Yes Sex and Gender Information Value Date Recorded Sex Assigned at Not on file Legal Sex Female 18:28 EST Gender Identity Not on file Sexual Orientation Not on file documented as of this encounter Plan of Treatment Not on file documented as of this encounter Procedures Procedure Name Priority Date/Time Associated Diagnosis Comments PAP TEST- RESULT ONLY Routine 02/03/2011 0:00 EDT documented in this encounter Results * PAP TEST- RESULT ONLY (02/03/2011 0:00 EDT) Pathology Report: CYTOPATHOLOGY REPORT ? Reports generated via electronic interface contain original data; ? however they are lacking the format of the original report. ? Caution should be taken when reading/interpreti ng unformatted reports. ? Name: ? JUDY LAFLEUR ? Accession #: ? [id number] ? : ? 1980 (Age: 30) ??F ?Collect Date: ? 02/03/2011 ? Location: ? [facility] ? Receive Date: ? 02/05/2011 ? Provider: PETER ALEX MD ? Copy to: ? Final Report ? SPECIMEN ADEQUACY ? Satisfactory for Evaluation ? - transformation zone component present ? - scant squamous epithelial component secondary to excessive blood ? GENERAL CATEGORIZATION ? Negative for Intraepithelial Lesion or Malignancy ? Last Menstural Period: 01/31/2011 ? Hormonal/Contracep tive status: Yes ? Previous Gynecologic Pathology: LSIL: 4/05 ? Treatment History: Colposcopy: 5/05 WNL ? Other: Additional clinical information: all paps WNL since ? Specimen/Source: ??Pap Test, Cervix/Endocervix, ThinPrep Imaging System with ? manual evaluation ? Document reviewed and electronically signed by: ? Saritha Trivedi, SCT(ASCP) ? Report ??Date: 02/17/2011 14:36 ? HPV with Pap Test ? Date Ordered: ? 02/17/2011 ? Status: ?? Signed Out ?Date Complete: ? 02/19/2011 ? By: ??System Interface ? Date Reported: ? 02/19/2011 ? Interpretation ? RESULT: Negative for HPV types 16, 18, 31, 33, 35, 39, 45, 51, 52, ? 56, 58, 59, and 68. ? Comments ? Document reviewed and electronically signed by: ? System Interface ? Report date: 02/19/2011 ? By the signature above, the attending physician certifies that he/she has ? personally conducted a gross and/or microscopic examination of the described ? specimens and rendered or confirmed the above diagnosis. ? End of Report ? JULI[facility] RUFF 02/03/2011 02/05/2011 us Terrence Cohn MD PATHOLOGY ORDERABLES Final Resul t [facility] [address] [place] [address] documented in this encounter Visit Diagnoses Not on filedocumented in this encounter Care Teams Apple Packing Header Relationship Specialty Start Date End Date Roxanne Lu, ROLLER BEARING INSPECTOR PCP - General 09/17/09 01/29/15 documented as of this encounter
--- OUTSIDE RECORDS SUMMARY | 2024-09-24 15:10 | XMS_ITS | Encounter Summary ---
Author Organization [facility] Address [address] [place] [address] Care Team Providers Care Bottling Line Attendant Name Role Phone Ac Brand Mars CONKLINN Primary Care Provider [phone] Encounter Details Date Type Department Care Team (Late st Contact Info) Description 02/26/2023 Lab Requisition [facility] Pathology & Laboratory Medicine - [address] [address] Outr Resulting Lab, Provider Social History Tobacco [...] Name Priority Date/Time Associated Diagnosis Comments HEPATITIS C AB W REFLEX TO HCV RNA BY PCR Routine 02/25/2023 17:51 EDT documented in this encounter Results * HEPATITIS C AB W REFLEX TO HCV RNA BY PCR (02/25/2023 17:51 EDT) Hep C Antibody Negative Negative 02/27/2023 10:05 EDT [facility] Blood VENOUS BLOOD / Unknown 02/25/2023 17:51 EDT 02/26/2023 17:53 EDT us Provider Outr Resulting Lab CHEMISTRY & BLOOD GA S ORDERABLES Final Result [facility] [address] [place] [address] documented in this encounter Visit Diagnoses Not on filedocumented in this encounter Care Teams Bottling Line Attendant Relationship Specialty Start Date End Date Ac Brand APRN [address] [place] [address] [address] [place] [address] PCP - General 01/30/15 documented as of this encounter
--- OUTSIDE RECORDS SUMMARY | 2024-09-24 15:10 | XMS_ITS | Encounter Summary ---
Author Organization [facility] Address [address] [place] [address] Care Team Providers Care Hvac Engineering Technician Name Role Phone Donell Lumoy Elaine APRN Primary Care Provider Unavailable Gus George MD Primary Care Provider + [phone] Gus George MD Primary Care Provider + [phone] Encounter Details Date Type Department Care Team (Late st Contact Info) Description 11/11/2001 Results Only [facility] conversion [address] [place] [address] Claudia Hernández CNM Social History Tobacco Use Types Packs/Day [...] Priority Date/Time Associated Diagnosis Comments CYTOPATHOLOGY Routine 11/11/2001 0:00 EST documented in this encounter Results * CYTOPATHOLOGY (11/11/2001 0:00 EST) Pathology Report: CYTOPATHOLOGY REPORT Reports generated via electronic interface contain original data; however they are lacking the format of the original report. Caution should be taken when reading/interpreti ng unformatted reports. Name: ? CIARRABEVERLYN Sandy ? Accession #: ? [id number] : ? 1980 (Age: 20) ??F ?Collect Date: ? 11/11/2001 Location: ? [facility] ? Receive Date: ? 11/15/2001 Provider: ?CLAUDIA HERNÁNDEZ CNM Copy to: ? Specimen/Source: ?ThinPrep Pap Test, Cervix/Endocervix Last Menstrual Period: ? 08/13/01 Menstrual/Pregnanc y Status: ? Other: ? Client ID#: [id number] ? SPECIMEN ADEQUACY ? Satisfactory for Evaluation - transformation zone component present GENERAL CATEGORIZATION ? Negative for Intraepithelial Lesion or Malignancy INTERPRETATION ? Fungal organisms present morphologically consistent with Kesha species. ? Document reviewed and electronically signed by: ? JUAN Ashley(ASCP) ? Report Date: ??11/18/2001 13:40 End of Report [facility] 11/11/2001 11/15/2001 us Claudia Hernández CNM PATHOLOGY ORDERABLES Final Resu lt [facility] [address] [place] [address] documented in this encounter Visit Diagnoses Not on filedocumented in this encounter Care Teams Hvac Engineering Technician Relationship Specialty Start Date End Date Roxanne Lu, SPEECH LANGUAGE PATHOLOGIST PRN PCP - General 09/17/09 01/29/15 Gus George MD [address] [facility] [address] [place] [address] PCP - General 05/04/09 09/16/09 Gus George MD [address] [address] PCP - General 05/03/09 05/03/09 documented as of this encounter
--- OUTSIDE RECORDS SUMMARY | 2024-09-24 15:10 | XMS_ITS | Encounter Summary ---
Author Organization [facility] Address [address] [place] [address] Care Team Providers Care Computer Information Systems Professor Name Role Phone Gus George MD Primary Care Provider + [phone] Encounter Details Date Type Department Care Team (Late st Contact Info) Description 05/04/2009 Orders Only [facility] [phone] Terrence Cohn MD [address] [place] [address] [address] [place], [place] [id number] Social History Tobacco Use Types Packs/Day Years [...] Procedure Name Priority Date/Time Associated Diagnosis Comments USP ULTRASCREEN (INCLUDES SEQUENTIAL SCREEN) 05/04/2009 14:30 EDT documented in this encounter Results * USP ULTRASCREEN (05/04/2009 14:30 EDT) Anatomical Region Laterality Modality Other 05/04/2009 14:3 0 EDT 05/07/2009 8:50 EDT Narrative 05/07/2009 8:50 EDT Please refer to the separate [facility] report. ??Contact Maternal Medicine. Procedure Note 05/07/2009 Please refer to the separate [facility] report. Contact Maternal Medicine. Terrence Cohn MD [facility] USP ORDERABLES Final Resu lt documented in this encounter Visit Diagnoses Not on filedocumented in this encounter Care Teams Computer Information Systems Professor Relationship Specialty Start Date End Date Gus George MD [address] [facility] [address] [place] [id number] PCP - General 05/04/09 09/16/09 documented as of this encounter
--- OUTSIDE RECORDS SUMMARY | 2024-09-24 15:10 | XMS_ITS | Encounter Summary ---
Author Organization [facility] Address [address] [place] [address] Care Team Providers Care Operations Professional Name Role Phone Gus George MD Primary Care Provider Encounter Details Date Type Department Care Team (Late st Contact Info) Description 06/04/2009 Abstract [facility] O[facility]YN Services - [address] [address] Gus George MD [address] [place] [address] Other Specified Screening Social History Tobacco Use Types Packs/Day Years Used Date Smoking Tobacco: Never Assessed Comments Unknown Sex and Gender Information Value Date Recorded Sex Assigned at Not on file Legal Sex Female 18:28 EST Gender Identity Not on file Sexual Orientation Not on file documented as of this encounter Plan of Treatment Not on file documented as of this encounter Visit Diagnoses Diagnosis Other specified screening(V28.89) Other specified screening documented in this encounter Care Teams Operations Professional Relationship Specialty Start Date End Date Gus George MD [address] [place] [address] PCP - General 05/04/09 09/16/09 documented as of this encounter
--- OUTSIDE RECORDS SUMMARY | 2024-09-24 15:10 | XMS_ITS | Encounter Summary ---
Author Organization [facility] Address [address] [place] [address] Care Team Providers Care Superintendent Maintenance Name Role Phone Ac Brand Mars DEANDRE Primary Care Provider [phone] Encounter Details Date Type Department Care Team (Late st Contact Info) Description 11/20/2017 6:23 EDT - 11/20/2017 11:19 EDT Hospital Encounter [facility] Perioperative Services- [address] [address] Ko Pizano MD [address] [facility], [address] [place] [address] Discharge Disposition: Discharged to Other Facility Social History Tobacco Use Types Packs/Day Years [...] on file documented as of this encounter Last Filed Vital Signs Vital Sign Reading Time Taken Comments Blood Pressure 119/85 11/20/2017 1116 EDT Pulse - - Temperature 36.4 ??C (97.5 ??F) 11/20/2017 1116 EDT Respiratory Rate 18 11/20/2017 1116 EDT Oxygen Saturation 93% 11/20/2017 1116 EDT Inhaled Oxygen Concentration - - Weight 68 kg (150 lb) 11/20/2017 0658 EDT Height 167.6 cm (5' 6) 11/20/2017 0658 EDT Body Mass Index 24.21 11/20/2017 0658 EDT documented in this encounter Discharge Diagnoses Diagnosis K83.9 Disease of biliary tract, unspecified-K83.9[ICD-10-CM] R10.9 Unspecified abdominal pain-R10.9[ICD-10-CM] F41.9 Anxiety disorder, unspecified-F41.9[ICD-10-CM] Z79.899 Other superintendent container terminal (current) drug therapy-Z79.899[ICD-10-CM] documented in this encounter Discharge Instructions * Discharge Instructions* Sara Solo RN - 11/20/2017 8:29 EDT Nursing Discharge Instructions Diet: ?? You should increase your fluid intake as tolerable for the next 24 hours. ?? If you are unable to keep liquids down due to vomiting, you should contact your surgeon. Activity: ?? Unless specific surgical activities were given, you should alternate periods of rest with periods of mild activity (i.e. walking around the house) and increase your activity as tolerated to normaldaily activities. ?? To help prevent post-operative respiratory complications, take several deep breaths and a few vigorous coughs each hour while awake. Reducing Infection: ?? You and your household members should wash hands regularly, particularly after using the toilet and before handling food. ?? To reduce your risk of a wound infection follow the dressing care instructions from your surgeon. If you have any of the following symptoms, contact your surgeon o Fever greater than 101 degrees o Flu like symptoms (i.e. headache, nausea/vomiting, chills) o Swelling, redness, or drainage (yellow/green in color) around the surgical site o Persistent pain or pain that was controlled with medication but now has worsened. Considerations of Pain Medications: ?? In order to prevent constipation, increase your daily fluid intake and your fiber intake. You may also take daily gyst-ekl-tdlmvwl stool softener such as Colace. ?? Follow your prescription as written on the bottle. Contact your surgeon if you are having difficulty taking your pain medication as prescribed due to nausea/vomiting, excessive drowsiness/stupor, or other side effects. ?? Contact your surgeon if your pain medication does not seem to help with your pain. documented in this encounter Medications at Time of Discharge ALPRAZolam (XANAX) 0.5 mg tablet Take 0.5 mg by mouth as needed for Sleep 01/06/2018 fentaNYL citrate, PF, 50 mcg/mL solution Inject 50 mcg into the vein every 15 minutes. 01/06/2018 FLUoxetine (PROZAC) 20 mg capsule Take 20 mg by mouth daily 01/06/2018 levonorgestrel-et hinyl estradiol (TOM) 90-20 mcg per tablet Take 1 Tab by mouth daily 01/06/2018 oxyCODONE-acetami nophen (PERCOCET) 5-325 mg per tablet Take 2 Tabs by mouth every 4 hours as needed for Pain 01/06/2018 documented as of this encounter Discharge Disposition Disposition Code Departure Means Destination Discharged to Other Facility documented in this encounter H&P Notes * Ko Pizano MD - 11/20/2017 0736 EDT Endoscopy Sedation for Procedure History & Physical Date: 11/20/2017 Time: 7:36 Location: [address] Planned Procedure: ERCP Chief Complaint/Indications for Procedure: stone in bile duct History Previous Complication with Sedation and/or Anesthesia? No Allergies: Allergies Allergen Reactions ??? Adhesive Tape-Silicones Rash Current Medications: No current facility-administered medications for this encounter. Past Medical History: Past Medical History: Diagnosis Date ??? Anxiety Social History: Past Surgical History: Procedure Laterality Date ??? CHOLECYSTECTOMY ??? HAND SURGERY Left tenosynovitis ??? WRIST SURGERY Left Social History Substance Use Topics ??? Smoking status: Never Smoker ??? Smokeless tobacco: Never Used ??? Alcohol use Yes Comment: rarely Family History: History reviewed. No pertinent family history. Review of Systems as pertinent: Physical Exam Vital Signs: BP 133/87 Temp 36.6 ??C (97.9 ??F) (Tympanic) Resp 18 Ht 167.6 cm (66) Wt 68 kg (150 lb) SpO2 97% BMI 24.21 kg/m2 Heart Examination: Cardiac Regularity: Regular Respiratory Examination: Respiratory Pattern: Regular Breath Sounds Right: Clear Breath Sounds Left: Clear Abdominal Examination: Soft, non-tender, bowel sounds normal, no masses, no organomegaly Additional physical exam related to the proposed procedure, patient activity, disease state and treatment as pertinent: Assessment Previous complications with sedation or anesthesia?: No Airway Concerns: None Anesthesia Classification: ASA 2 Plan: Proceed with sedation for procedure Fasting Time: Time of last liquid intake: 2230 Date of Last Liquid Intake: 11/19/17 Time of last solid intake: 1800 Date of last solid intake: 11/18/17 Patient Appropriate Candidate for Planned Sedation?: Yes Ko Pizano MD 11/20/2017 7:36 documented in this encounter Miscellaneous Notes * Anesthesia Post-Leonidas - Sara Gavin - 11/20/2017 1011 EDT Anesthesia Post op Note Judy Lafleur [id number] Anesthesia received: General; Vital Signs: Temp: 36.1 ??C (97 ??F), Heart Rate: 93 BPM, BP: (!) 128/92, Resp: 15, SpO2: 95 % Vital signs Stable: Yes Consciousness: Recovered to baseline Patient's participation in evaluation:Able to participate Temperature Status: Normothermic Respiratory Status: Airway patent Supplemental O2: Room air Oxygen Saturation: Appropriate for condition Cardiovascular Status: Within patient's normal range Post-op Hydration: Adequate Nausea / Vomiting: None Pain Control: Adequate Current Pain Score: Numeric Pain Level (Scale 1-10): 0 Post-op Assessment: Tolerated procedure well Disposition: Home Complications: No apparent anesthetic complications Doing well. No apparent anesthetic complications. Sara Gavin MD 11/20/2017 10:11 documented in this encounter Plan of Treatment Not on file documented as of this encounter Procedures Procedure Name Priority Date/Time Associated Diagnosis Comments ECG REPORT - SCANNED 11/25/2017 14:05 EDT ERCP-GI PROCEDURE Routine 11/20/2017 10: 10 EDT FL ERCP BILIARY SYSTEM Routine 11/20/2017 8:30 EDT documented in this encounter Results * ECG REPORT - SCANNED (11/25/2017 14:05 EDT) 11/25/2017 14:0 5 EDT us Scan 2 Tower Supervisor PROCEDURE/MINOR SURGICAL OR DERABLES Final Result * ERCP-GI PROCEDURE (11/20/2017 10:10 EDT) Anatomical Region Laterality Modality Endoscopy Narrative 11/20/2017 10:10 EDT Procedure Performed ERCP Indications for Exam Bile Leak Procedure Technique A physical exam was performed. Informed consent was obtained from the patient after explaining all the risks (perforation, bleeding, pancreatitis, infection and adverse effects to the medicine) , benefits and alternatives to the procedure which the patient appeared to understand and so stated. ??The patient was connected to the monitoring devices and placed in the prone position. Continuous oxygen was provided with a nasal cannula and IV medicine administered through an indwelling cannula. After adequate sedation/anesthesia was established the patient was intubated and the duodenoscope advanced under direct visualization to the second portion of the duodenum/ampullary region. ??ERCP performed as described below, and upon completion the duodenoscope was removed and the patient was brought to recovery/PACU in satisfactory condition. Medications General Anesthesia Rectal Indomethacin 100mg See Anesthesia Record Estimated ??Blood Loss: None Findings Using a [employer] sphincterotome and a 0.035 cm wire, the common bile duct was cannulated with the wire. ??Deep cannulation with the sphincterotome was then achieved and a cholangiogram was performed and interpreted in real time. The cholangiogram showed a bile leak at the cystic duct stump. A 10 greenlandic 5 cm straight plastic stent was placed over the wire and adequate placement confirmed by endoscopic and fluoroscopic imaging. ??The dudoenoscope was removed and the stomach decompressed upon withdrawal. Diagnosis Bile duct leak with stent placement Recommendations Repeat ERCP in 6-8 weeks The??procedure??was??performed??by??Dr. Mary Gonzales M.D. in the presence of Dr. Ko Pizano. The attending physician was in the room for the entire procedure. This electronic signature authenticates all electronic and/or handwritten documentation, including orders, generated by the signer during the episode of care contained in this record. 11/20/2017 10:10:12 AM By Ko Pizano MD Ko Pizano MD GI PROCEDURE ORDERABLES Fin al Result * FL ERCP BILIARY SYSTEM (11/20/2017 8:30 EDT) Anatomical Region Laterality Modality Other 11/20/2017 8:30 EDT 11/20/2017 9:08 EDT Narrative 11/20/2017 9:08 EDT FL ERCP BILIARY SYSTEM ??11/20/2017 8:30 AM Clinical History/Comments: Abdominal Pain. S/P ERCP with styent placement. R/O Bile Leak. Findings: Fluoroscopy was provided for ERCP ?? Image position and acquisitions were decided by the procedural physician. Procedure Note Dick Mayer MD - 11/20/2017 FL ERCP BILIARY SYSTEM 11/20/2017 8:30 AM Clinical History/Comments: Abdominal Pain. S/P ERCP with styent placement. R/O Bile Leak. Findings: Fluoroscopy was provided for ERCP Image position and acquisitions were decided by the procedural physician. Ko Pizano MD IMG FLUOROSCOPY ORDERABLES Final Result documented in this encounter Visit Diagnoses Not on filedocumented in this encounter Administered Medications Inactive Administered Medications - up to 3 most recent administrations Medication Order MAR Action Action Date Dose Rate Site acetaminophen (TYLENOL) solution unit dose cup 995 mg 995 mg (rounded from 1,000 mg), oral, PRN, 1 dose, Starting on Thu11/20/17 at 0740, Until Thu11/20/17 at 1323, Fever, Routine, Recovery (only) acetaminophen (TYLENOL) tablet 1,000 mg 1,000 mg, oral, PRN, 1 dose, Starting on Thu11/20/17 at 0740, Until Thu11/20/17 at 1323, Fever, Routine, Recovery (only) atropine 0.1 mg/mL syringe 0.5 mg 0.5 mg, intravenous, PRN, Starting on Thu11/20/17 at 0740, Until Thu11/20/17 at 1323, Symptomatic HR < 50, Routine, Recovery (only) fentaNYL citrate (PF) 50 mcg/mL injection 25-50 mcg 25-50 mcg, intravenous, EVERY 5 MIN PRN, Starting on Thu11/20/17 at 0740, Until Thu11/20/17 at 1323, Pain, Routine, Recovery (only) indomethacin (INDOCIN) rectal suppository suppository 100 mg 100 mg, rectal, NOW X1, 1 dose, On Thu11/20/17 at 0815, Routine Given 11/20/2017 8:00 EDT 100 mg lactated ringers (LR) infusion 30 mL/hr, intravenous, CONTINUOUS, Starting on Thu11/20/17 at 0845, Until Thu11/20/17 at 1323, Routine, Preprocedure lactated ringers (LR) infusion at 75 mL/hr, intravenous, CONTINUOUS, Starting on Thu11/20/17 at 0800, Until Thu11/20/17 at 1323, Routine, Recovery (only) meperidine (PF) (DEMEROL) 100 mg/mL injection 25-200 mg 25-200 mg, intravenous, ONCE PRN, 1 dose, Starting on Thu11/20/17 at 0828, Until Thu11/20/17 at 1323, Other, sedation, Routine, Intraprocedure midazolam (MDV) (VERSED) injection 1-10 mg 1-10 mg, intravenous, ONCE PRN, 1 dose, Starting on Thu11/20/17 at 0828, Until Thu11/20/17 at 1323, Sedation, Routine, Intraprocedure naloxone (NARCAN) injection 0.2 mg 0.2 mg, intravenous, PRN, Starting on Thu11/20/17 at 0740, Until Thu11/20/17 at 1323, Opioid Reversal, Routine, Recovery (only) oxyCODONE (ROXICODONE) immediate release tablet 5-10 mg 5-10 mg, oral, EVERY 30 MINUTES PRN, 2 doses, Starting on Thu11/20/17 at 0740, Until Thu11/20/17 at 1323, Pain, Routine, Recovery (only) sodium chloride 0.9 % flush 3 mL 3 mL, intravenous, PRN, Starting on Thu11/20/17 at 0828, Until Thu11/20/17 at 1323, Line Care, Routine, Preprocedure documented in this encounter Historical Medications * This list may reflect changes made after this encounter. fentaNYL citrate, PF, 50 mcg/mL solution Inject 50 mcg into the vein every 15 minutes. 01/06/2018 added in this encounter Active and Recently Administered Medications Times are shown in EDT. Scheduled Medication Order 11/18/2017 11/19/2017 11/20/2017 indomethacin (INDOCIN) rectal suppository suppository 100 mg (COMPLETED) 100 mg, rectal, NOW X1, 1 dose, On Thu11/20/17 at 0815, Routine 0800 (Given - Provid er: Gabby Nieto RN) Continuous Medication Order 11/18/2017 11/19/2017 11/20/2017 lactated ringers (LR) infusion 30 mL/hr, intravenous, CONTINUOUS, Starting on Thu11/20/17 at 0845, Until Thu11/20/17 at 1323, Routine, Preprocedure 0852 (Completed - Pr ovider: Sara Solo RN) lactated ringers (LR) infusion at 75 mL/hr, intravenous, CONTINUOUS, Starting on Thu11/20/17 at 0800, Until Thu11/20/17 at 1323, Routine, Recovery (only) 0852 (Continued Infu sarika - Provider: Sara Solo RN) PRN Medication Order 11/18/2017 11/19/2017 11/20/2017 acetaminophen (TYLENOL) solution unit dose cup 995 mg(Linked Group 1) 995 mg (rounded from 1,000 mg), oral, PRN, 1 dose, Starting on Thu11/20/17 at 0740, Until Thu11/20/17 at 1323, Fever, Routine, Recovery (only) acetaminophen (TYLENOL) tablet 1,000 mg(Linked Group 1) 1,000 mg, oral, PRN, 1 dose, Starting on Thu11/20/17 at 0740, Until Thu11/20/17 at 1323, Fever, Routine, Recovery (only) atropine 0.1 mg/mL syringe 0.5 mg 0.5 mg, intravenous, PRN, Starting on Thu11/20/17 at 0740, Until Thu11/20/17 at 1323, Symptomatic HR < 50, Routine, Recovery (only) fentaNYL citrate (PF) 50 mcg/mL injection 25-50 mcg 25-50 mcg, intravenous, EVERY 5 MIN PRN, Starting on Thu11/20/17 at 0740, Until Thu11/20/17 at 1323, Pain, Routine, Recovery (only) meperidine (PF) (DEMEROL) 100 mg/mL injection 25-200 mg 25-200 mg, intravenous, ONCE PRN, 1 dose, Starting on Thu11/20/17 at 0828, Until Thu11/20/17 at 1323, Other, sedation, Routine, Intraprocedure midazolam (MDV) (VERSED) injection 1-10 mg 1-10 mg, intravenous, ONCE PRN, 1 dose, Starting on Thu11/20/17 at 0828, Until Thu11/20/17 at 1323, Sedation, Routine, Intraprocedure naloxone (NARCAN) injection 0.2 mg 0.2 mg, intravenous, PRN, Starting on Thu11/20/17 at 0740, Until Thu11/20/17 at 1323, Opioid Reversal, Routine, Recovery (only) oxyCODONE (ROXICODONE) immediate release tablet 5-10 mg 5-10 mg, oral, EVERY 30 MINUTES PRN, 2 doses, Starting on Thu11/20/17 at 0740, Until Thu11/20/17 at 1323, Pain, Routine, Recovery (only) sodium chloride 0.9 % flush 3 mL 3 mL, intravenous, PRN, Starting on Thu11/20/17 at 0828, Until Thu11/20/17 at 1323, Line Care, Routine, Preprocedure Linked Groups Order Group 1: acetaminophen (TYLENOL) solution unit dose cup 995 mgJump to med 995 mg (rounded from 1,000 mg), oral, PRN, 1 dose, Starting on Thu11/20/17 at 0740, Until Thu11/20/17 at 1323, Fever, Routine, Recovery (only) Or acetaminophen (TYLENOL) tablet 1,000 mgJump to med 1,000 mg, oral, PRN, 1 dose, Starting on Thu11/20/17 at 0740, Until Thu11/20/17 at 1323, Fever, Routine, Recovery (only) documented in this encounter Orders Medications Ordered That Neptali ht Not Have Been Administered Count Last Ordered Date First Ordered Date acetaminophen (TYLENOL) solu tion unit dose cup 995 mg 1 11/20/2017 acetaminophen (TYLENOL) tablet 1,000 mg 1 0 11/20/2017 atropine 0.1 mg/mL syringe 0.5 mg 1 018 fentaNYL citrate (PF) 50 mcg /mL injection 25-50 mcg 1 11/20/2017 lactated ringers (LR) infusion 3 11/20/2017 meperidine (PF) (DEMEROL) 10 0 mg/mL injection 25-200 mg 2 11/20/2017 midazolam (MDV) (VERSED) injection 1-10 mg 2 11/20/2017 naloxone (NARCAN) injection 0.2 mg 1 2017 oxyCODONE (ROXICODONE) immed iate release tablet 5-10 mg 1 11/20/2017 sodium chloride 0.9 % flush 3 mL 2 11/21/19 18 Transfer Count Last Ordered Date First Orde red Date NOTIFY PPS PACU PATIENT DISCHARGE 1 018 NOTIFY PPS PATIENT ARRIVAL IN PACU 1 2017 documented in this encounter Care Teams Superintendent Maintenance Relationship Specialty Start Date End Date Ac Brand APRN [address] [place] [address] [address] [place] [address] PCP - General 01/30/15 documented as of this encounter
--- OUTSIDE RECORDS SUMMARY | 2024-09-24 15:10 | XMS_ITS | Encounter Summary ---
Author Organization [facility] Address [address] [place] [address] Care Team Providers Care Freight Agent Name Role Phone Roxanne Lu Argentina CARRERA Primary Care Provider Unavailable Gus George MD Primary Care Provider + [phone] Gus George MD Primary Care Provider + [phone] Encounter Details Date Type Department Care Team (Late st Contact Info) Description 07/07/2005 Results Only [facility] [place] [address] [place] [address] Richa Cohn MD [address] [place] [address] [phone] Social History Tobacco Use Types Packs/Day Years [...] Priority Date/Time Associated Diagnosis Comments CYTOPATHOLOGY Routine 07/07/2005 0:00 EST documented in this encounter Results * CYTOPATHOLOGY (07/07/2005 0:00 EST) Pathology Report: CYTOPATHOLOGY REPORT Reports generated via electronic interface contain original data; however they are lacking the format of the original report. Caution should be taken when reading/interpreti ng unformatted reports. Name: ? JUDY LAFLEUR ? Accession #: ? [id number] : ? 1980 (Age: 24) ??F ?Collect Date: ? 07/07/2005 Location: ? [facility] ? Receive Date: ? 07/09/2005 Provider: ?RICHA COHN MD Copy to: ? Specimen/Source: ?ThinPrep Pap Test, Cervix/Endocervix, processed on LOC&ALL ThinPrep Imaging System, with manual evaluation Last Menstrual Period: ? 06/02/05 Previous Gynecologic Pathology: ? ASC-US: 08/14 undetermined LSIL: 11/27/04 Treatment History: ? Colposcopy: 01/03/05 wnl Other: ? HPVA - HPV testing requested if ASC-US on the current ThinPrep Pap test. ? SPECIMEN ADEQUACY ? Satisfactory for Evaluation - transformation zone component present - scant squamous epithelial component GENERAL CATEGORIZATION ? Negative for Intraepithelial Lesion or Malignancy ? Document reviewed and electronically signed by: ? JUAN Kay(ASCP) ? Report Date: ??07/11/2005 10:52 End of Report JULIEN RUFF 07/07/2005 07/09/2005 us Richa Cohn MD PATHOLOGY ORDERABLES Final Resul t JULIEN RUFF [address] [place] [address] documented in this encounter Visit Diagnoses Not on filedocumented in this encounter Care Teams Freight Agent Relationship Specialty Start Date End Date Roxanne Lu APRN PCP - General 09/17/09 01/29/15 Gus George MD [address] [place] [id number] PCP - General 05/04/09 09/16/09 Gus George MD [address] [place] [id number] PCP - General 05/03/09 05/03/09 documented as of this encounter
--- OUTSIDE RECORDS SUMMARY | 2024-09-24 15:10 | XMS_ITS | Encounter Summary ---
Author Organization [facility] Address [address] [place] [address] Care Team Providers Care Hourly Caregiver Name Role Phone Unavailable Primary Care Provider Unavailabl e Encounter Details Date Type Department Care Team (Late st Contact Info) Description 09/01/2008 Before PRISM Converted Visit ([place]) [facility] - [place] conversion [address] [place] [address] Richa Cohn MD [address] [place] [address] [address] [place], [place] [id number] Social History Tobacco Use Types Packs/Day Years [...] Priority Date/Time Associated Diagnosis Comments CYTOPATHOLOGY Routine 09/01/2008 0:00 EST documented in this encounter Results * CYTOPATHOLOGY (09/01/2008 0:00 EST) Pathology Report: CYTOPATHOLOGY REPORT ? Reports generated via electronic interface contain original data; ? however they are lacking the format of the original report. ? Caution should be taken when reading/interpreti ng unformatted reports. ? Name: ? JUDY LAFLEUR ? Accession #: ? [id number] ? : ? 1980 (Age: 27) ??F ?Collect Date: ? 09/01/2008 ? Location: ? [facility] ? Receive Date: ? 09/04/2008 ? Provider: ?RICHA COHN MD ? Copy to: ? Specimen/Source: ?Pap Test, Cervix/Endocervix, ThinPrep Imaging System ? with manual evaluation ? Last Menstrual Period: ? 12/07/08 ? Hormonal/Contracep tive Status: ? Yes ? Previous Gynecologic Pathology: ? LSIL: 04/05 ? Treatment History: ? Colposcopy: 05/05 WNL ? Other: ? Additional clinical information: Paps WNL since ? HPVA - HPV testing requested if ASC-US on the current ThinPrep Pap test. ? SPECIMEN ADEQUACY ? Satisfactory for Evaluation ? - transformation zone component present ? GENERAL CATEGORIZATION ? Negative for Intraepithelial Lesion or Malignancy ? Document reviewed and electronically signed by: ? Saritha Trivedi, SCT(ASCP) ? Report Date: ??09/06/2008 12:07 ? End of Report ? JULIEN RUFF 09/01/2008 09/04/2008 us Richa Cohn MD PATHOLOGY ORDERABLES Final Resul t JULIEN RUFF [address] [place] [address] documented in this encounter Visit Diagnoses Not on filedocumented in this encounter
--- OUTSIDE RECORDS SUMMARY | 2024-09-24 15:10 | XMS_ITS | Encounter Summary ---
Author Organization [facility] Address [address] [place] [address] Care Team Providers Care Transcripter Name Role Phone Ac Brand APRN Primary Care Provider [phone] Reason for Visit * Reason Onset Date Comments Appointment Related 04/11/2015 Encounter Details Date Type Department Care Team (Late st Contact Info) Description 04/11/2015 Telephone [facility] Spine Program - [address] [place] [address] Cindi Cuellar PA-C [address] [place] [address] [place] [address] Appointment Related Social History Tobacco Use Types Packs/Day Years [...] on file documented as of this encounter Miscellaneous Notes * Telephone Encounter - Netta Maldonado - 04/11/2015 0951 EDT Patient called stating she scheduled the injection elsewhere and does not need a referral. She wants the packet sent to her again in the mail. REviewed verbally over the phone and sent in mail. documented in this encounter Plan of Treatment Not on file documented as of this encounter Visit Diagnoses Not on filedocumented in this encounter Care Teams Transcripter Relationship Specialty Start Date End Date Ac Brand APRN [address] [place] [address] [address] [place] [address] PCP - General 01/30/15 documented as of this encounter
--- OUTSIDE RECORDS SUMMARY | 2024-09-24 15:10 | XMS_ITS | Encounter Summary ---
Author Organization [facility] Address [address] [place] [address] Care Team Providers Care Coding Validator Name Role Phone BrandAc Mars CARRERA Primary Care Provider [phone] Encounter Details Date Type Department Care Team (Late st Contact Info) Description 08/27/2024 Lab Requisition [facility] [address] [place] [address] Dick Genny E, EQUIPMENT WORKER [address] [facility] [place], [place] [address] Encounter for screening for human papillomavirus (HPV); Encounter for screening for malignant neoplasm of cervix Social History Tobacco Use Types Packs/Day Years [...] for screening for malignant neoplasm of cervix documented in this encounter Results * (ABNORMAL) HPV DNA DETECTION WITH GENOTYPING, PCR (08/26/2024 13:22 EST) HPV High Risk type 16, PCR Negative Negative 09/07/2024 14:55 EST [facility] HPV High Risk type 18, PCR Negative Negative 09/07/2024 14:55 EST [facility] HPV other High Risk types, PCR Positive(A) Negative 09/07/2024 14:55 [facility] Comment: Positive for one of the following Other High Risk HPV types: ??31,33, 35, 39, 45, 51, 52, 56, 58, 59, 66 and 68. Pap Test CERVIX UTERI STRUCTURE / Unknown 08/26/2024 13:22 EST 09/06/2024 12:58 EST november Dick SANTOS MICROBIOLOGY - GENERAL ORD ERABLES Final Result [facility] [address] [place] [address] * PAP TEST (08/26/2024 13:22 EST) Specimens A. Cervix and/or Endocervix , ThinPrep Imaging System with Manual Evaluation 09/07/2024 14:55 EST [facility] Specimen Adequacy Satisfactory for Evaluation - transformation zone component absent 09/07/2024 14:55 [facility] General Categorization Negative for intraepithelial lesion or malignancy 09/07/2024 14:55 [facility] Attestation . 09/07/2024 14:55 [facility] at 1455 Clinical History Clinical History, Signs, Symptoms, Chief Complaint, Pertaining to This Order: See below Hormone/Contracep tive Use?: Yes ?: No Post-?: No 09/07/2024 14:55 EST [facility] Performing Lab [facility] 09/07/2024 14:55 EST [facility] Scanned Images 09/07/2024 14:55 [facility] HPV High Risk type 16, PCR Negative 09/07/2024 14:55 EST [facility] HPV High Risk type 18, PCR Negative 09/07/2024 14:55 [facility] HPV Other High Risk Types, PCR Positive Positive for one of the following Other High Risk HPV types: 31,33, 35, 39, 45, 51, 52, 56, 58, 59, 66 and 68. 09/07/2024 14:55 [facility] Pap Test CERVIX UTERI STRUCTURE / Unknown 08/26/2024 13:22 EST 08/29/2024 9:41 EST november Dick SANTOS PATHOLOGY ORDERABLES Final Result Performing Organization Address City/State/[facility] Co de Phone Number [facility] [address] [place] [address] documented in this encounter Visit Diagnoses Diagnosis Encounter for screening for human papillomavirus (HPV) Special screening examination for human papillomavirus (HPV) Encounter for screening for malignant neoplasm of cervix Screening for malignant neoplasm of the cervix documented in this encounter Care Teams Coding Validator Relationship Specialty Start Date End Date Ac Brand APRN [address] [place] [address] [address] [place] [address] PCP - General 01/30/15 documented as of this encounter
--- OUTSIDE RECORDS SUMMARY | 2024-09-24 15:10 | XMS_ITS | Encounter Summary ---
Author Organization [facility] Address [address] [place] [address] Care Team Providers Care Banker Mason Name Role Phone Lindsay Last APRN Primary Care Provider Unavailable Gus George MD Primary Care Provider + [phone] Gus George MD Primary Care Provider + [phone] Encounter Details Date Type Department Care Team (Late st Contact Info) Description 11/27/2004 Results Only [facility] [place] conversion [address] [place] [address] Lindsay Last APRN Social History Tobacco Use [...] Priority Date/Time Associated Diagnosis Comments CYTOPATHOLOGY Routine 11/27/2004 0:00 EDT documented in this encounter Results * CYTOPATHOLOGY (11/27/2004 0:00 EDT) Pathology Report: CYTOPATHOLOGY REPORT Reports generated via electronic interface contain original data; however they are lacking the format of the original report. Caution should be taken when reading/interpreti ng unformatted reports. Name: ? JUDY LAFLEUR ? Accession #: ? [id number] : ? 1980 (Age: 24) ??F ?Collect Date: ? 11/27/2004 Location: ? [facility] ? Receive Date: ? 11/29/2004 Provider: ?LINDSAY LAST DI[facility] AID Copy to: ? Specimen/Source: ?ThinPrep Pap Test, Cervix/Endocervix Last Menstrual Period: ? 10/31/04 Hormonal/Contracep tive Status: ? Yes Previous Gynecologic Pathology: ? ASC-US HPV: status undetermined Other: ? HPVA - HPV testing requested if ASC-US on the current ThinPrep Pap test. ? SPECIMEN ADEQUACY ? Satisfactory for Evaluation - transformation zone component present GENERAL CATEGORIZATION ? Epithelial Cell Abnormality INTERPRETATION ? Squamous Cell Abnormality - Low grade squamous intraepithelial lesion (LSIL). EDUCATIONAL NOTES/RECOMMENDATI ONS ? [facility] recommends following the 2001 Consensus Guidelines for the Management of Women with Cervical Cytological Abnormalities (HAILE,2002;287:212 0-9). Management algorithms have been distributed by [facility] and are available online at www.ASCCP.org. ? Document reviewed and electronically signed by: ? RADHA NGUYEN MD ? Report Date: ??12/06/2004 17:33 End of Report JULIEN RFUF 11/27/2004 11/29/2004 us Lindsay Last DIET AID PATHOLOGY ORDERABLES Fi nal Result JULIEN RUFF [address] [place] [address] documented in this encounter Visit Diagnoses Not on filedocumented in this encounter Care Teams Banker Mason Relationship Specialty Start Date End Date Lindsay Last APRN PCP - General 09/17/09 01/29/15 Gus George MD [address] [place] [id number] PCP - General 05/04/09 09/16/09 Gus George MD [address] [place] [id number] PCP - General 05/03/09 05/03/09 documented as of this encounter
--- OUTSIDE RECORDS SUMMARY | 2024-09-24 15:10 | XMS_ITS | Encounter Summary ---
Author Organization [facility] Address [address] [place] [address] Care Team Providers Care Dicer Machine Operator Name Role Phone Ac Brand APRN Primary Care Provider [phone] Encounter Details Date Type Department Care Team (Late st Contact Info) Description 01/13/2018 10:31 EDT - 01/13/2018 12:43 EDT Hospital Encounter [facility] Endoscopy - [facility] [address] [place] [address] Ko Pizano MD [address] [facility], [address] [place] [address] Discharge Disposition: Home or Self [...] Body Mass Index 23.4 01/13/2018 1047 EDT documented in this encounter Discharge Diagnoses Diagnosis Z46.59 Encounter for fitting and adjustment of other gastrointestinal appliance and device-Z46.59[ICD-10-CM] F41.9 Anxiety disorder, unspecified-F41.9[ICD-10-CM] 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 documented as of this encounter Discharge Disposition Disposition Code Departure Means Destination Home or Self Care documented in this encounter Progress Notes * Catalina Fernandez RN - 01/06/2018 1113 EDT Judy Lafleur has been instructed as follows regarding medication administration for the day of the scheduled procedure. Date of Surgery: 01/13/18 Instructions for Taking Medications Day of Surgery Medication Sig Last Dose Hold DOS Take DOS levonorgestrel-ethinyl estradiol (LYBREL) 90-20 mcg per tablet Take 1 Tab by mouth daily. Lexis prior documented in this encounter H&P Notes * Ko Pizano MD - 01/13/2018 1107 EDT Endoscopy Sedation for Procedure History & Physical Date: 01/13/2018 Time: 11:07 Location: [address] Planned Procedure: ERCP Chief Complaint/Indications for Procedure: stent removal History Previous Complication with Sedation and/or Anesthesia? No Allergies: Allergies Allergen Reactions ??? Adhesive Tape-Silicones Rash Bandaids, steristrips, and silk tape cause reaction (redness and itching Paper tape is OK and tegaderm is OK. Current Medications: Current Facility-Administered Medications: lactated ringers (LR) infusion intravenous CONTINUOUS meperidine (PF) (DEMEROL) 100 mg/mL injection 25-200 mg intravenous Once PRN midazolam (MDV) (VERSED) injection 1-10 mg intravenous Once PRN sodium chloride 0.9 % flush 3 mL intravenous PRN Past Medical History: Past Medical History: Diagnosis [...] as pertinent: Physical Exam Vital Signs: BP 120/77 Temp 36.4 ??C (97.5 ??F) (Tympanic) Resp 16 Ht 167.6 cm (66) Wt 65.8 kg (145 lb) SpO2 100% BMI 23.4 kg/m2 Heart Examination: Cardiac Regularity: Regular Respiratory [...] Fasting Time: Time of last liquid intake: 1999 Date of Last Liquid Intake: 01/12/18 Time of last solid intake: 1929 Date of last solid intake: 01/12/18 Patient Appropriate Candidate for Planned Sedation?: Yes Ko Pizano MD 01/13/2018 11:07 documented in this encounter Miscellaneous Notes * Anesthesia Post-Epifanio Quigley, DO - 01/13/2018 1243 EDT Anesthesia Post op Note Judy Lafleur ENDO08/ Anesthesia received: MAC; Vital Signs: Temp: 36.3 ??C (97.3 ??F), BP: (!) 125/94, Resp: 16, SpO2: 100 % Vital signs Stable: Yes Consciousness: Recovered to baseline Patient's participation in evaluation:Able to participate Temperature Status: Normothermic Respiratory Status: Airway patent Supplemental O2: Room air Oxygen Saturation: Within patient's normal range Cardiovascular Status: Within patient's normal range Post-op Hydration: Adequate Nausea / Vomiting: None Pain Control: Adequate Current Pain Score: Numeric Pain Level (Scale 1-10): 0 Post-op Assessment: Tolerated procedure well, No evidence of recall, Patient satisfied with anesthesia Disposition: Home Complications: No apparent anesthetic complications Epifanio Cardona DO 01/13/2018 12:48 documented in this encounter Plan of Treatment Not on file documented as of this encounter Procedures Procedure Name Priority Date/Time Associated Diagnosis Comments ERCP-GI PROCEDURE Routine 01/13/2018 11: 49 EDT [place] ERCP BILIARY SYSTEM Routine 01/13/2018 11:41 EDT documented in this encounter Results * ERCP-GI PROCEDURE (01/13/2018 11:49 EDT) Anatomical Region Laterality Modality Endoscopy Narrative 01/13/2018 11:49 EDT Procedure Performed ERCP Indications for Exam stent pull Procedure Technique In the endoscopy suite, the patient was brought down from his inpatient hospital bed. The risks, benefits, techniques, and indications of the procedures were explained to the patient and informed consent was obtained. ??The patient was placed in prone position. ??Anesthesia was provided by the attending anesthesiologist. The Scope was advanced through the oropharynx into the ampulla. Medications MAC Anesthesia See Anesthesia Record Estimated ??Blood Loss: None Findings The duodenoscope was paced to the level of the ampulla. A biliary stent was seen exiting the ampulla. The stent was removed with a snare. The CBD then was cannulated with a sphincteratome. A cholangiogram was performed. There was no persistent leak or narrowing of the CBD. No bile duct stones were visualized. The PD was cannulated X2. Rectal indomethacin given. Diagnosis The duodenoscope was paced to the level of the ampulla. A biliary stent was seen exiting the ampulla. The stent was removed with a snare. The CBD then was cannulated with a sphincteratome. A cholangiogram was performed. There was no persistent leak or narrowing of the CBD. No bile duct stones were visualized. The PD was cannulated X2. Rectal indomethacin given. Recommendations Follow up with Primary physician This electronic signature authenticates all electronic and/or handwritten documentation, including orders, generated by the signer during the episode of care contained in this record. 01/13/2018 11:49:26 AM By Ko Pizano MD Ko Pizano MD GI PROCEDURE ORDERABLES Fin al Result * FL ERCP BILIARY SYSTEM (01/13/2018 11:41 EDT) Anatomical Region Laterality Modality Other 01/13/2018 11:4 1 EDT 01/13/2018 12:03 EDT Narrative 01/13/2018 12:03 EDT FL ERCP BILIARY SYSTEM ??01/13/2018 11:41 AM Clinical History/Comments: Abdomen pain. S/P ERCP COMPARISON: ERCP November 20, 2017 Fluoroscopic images obtained during ERCP performed by GI are submitted for interpretation. FINDINGS: The endoscope is in place and there is a wire in the common bile duct. Contrast was instilled. There is either narrowing or a lack of contrast in the distal common bile duct. A trace amount of contrast passes into the duodenum. Please see procedure note for complete details. Procedure Note Michael Burns MD - 01/13/2018 [place] ERCP BILIARY SYSTEM 01/13/2018 11:41 AM Clinical History/Comments: Abdomen pain. S/P ERCP COMPARISON: ERCP November 20, 2017 Fluoroscopic images obtained during ERCP performed by GI are submitted for interpretation. FINDINGS: The endoscope is in place and there is a wire in the common bile duct. Contrast was instilled. There is either narrowing or a lack of contrast in the distal common bile duct. A trace amount of contrast passes into the duodenum. Please see procedure note for complete details. Ko Pizano MD IMG FLUOROSCOPY ORDERABLES Final Result documented in this encounter Visit Diagnoses Not on filedocumented in this encounter Administered Medications Inactive Administered Medications - up to 3 most recent administrations Medication Order MAR Action Action Date Dose Rate Site indomethacin (INDOCIN) rectal suppository suppository 100 mg 100 mg, rectal, NOW X1, 1 dose, On Thu01/13/18 at 1200, Routine Given 01/13/2018 11:31 EDT 100 mg lactated ringers (LR) infusion 30 mL/hr, intravenous, CONTINUOUS, Starting on Thu01/13/18 at 1100, Until Thu01/13/18 at 1447, Routine, Preprocedure New Bag 01/13/2018 11:09 EDT 30 mL/hr 30 mL/hr meperidine (PF) (DEMEROL) 100 mg/mL injection 25-200 mg 25-200 mg, intravenous, ONCE PRN, 1 dose, Starting on Thu01/13/18 at 1043, Until Thu01/13/18 at 1447, Other, sedation, Routine, Intraprocedure midazolam (MDV) (VERSED) injection 1-10 mg 1-10 mg, intravenous, ONCE PRN, 1 dose, Starting on Thu01/13/18 at 1043, Until Thu01/13/18 at 1447, Sedation, Routine, Intraprocedure sodium chloride 0.9 % flush 3 mL 3 mL, intravenous, PRN, Starting on Thu01/13/18 at 1043, Until Thu01/13/18 at 1447, Line Care, Routine, Preprocedure documented in this encounter Discontinued Medications Medication Sig Discontinue Reason Start Date End Da te levonorgestrel-ethinyl estradiol (TOM) 90-20 mcg per tablet Take 1 Tab by mouth daily Error 01/06/2018 ALPRAZolam (XANAX) 0.5 mg tablet Take 0.5 mg by mouth as needed for Sleep Error 01/06/2018 FLUoxetine (PROZAC) 20 mg capsule Take 20 mg by mouth daily Error 01/06/2018 oxyCODONE-acetaminophen (PERCOCET) 5-325 mg per tablet Take 2 Tabs by mouth every 4 hours as needed for Pain Error 01/06/2018 fentaNYL citrate, PF, 50 mcg/mL solution Inject 50 mcg into the vein every 15 minutes. Error 01/06/2018 documented as of this encounter Historical Medications * This list may reflect changes made after this encounter. levonorgestrel-eth inyl estradiol (LYBREL) 90-20 mcg per tablet Take 1 Tab by mouth daily. added in this encounter Active and Recently Administered Medications Times are shown in EDT. Scheduled Medication Order 01/11/2018 01/12/2018 01/13/2018 indomethacin (INDOCIN) rectal suppository suppository 100 mg (COMPLETED) 100 mg, rectal, NOW X1, 1 dose, On Thu01/13/18 at 1200, Routine 1131 (Given - Provid er: Talya Padorn, FUAD) Continuous Medication Order 01/11/2018 01/12/2018 01/13/2018 lactated ringers (LR) infusion 30 mL/hr, intravenous, CONTINUOUS, Starting on Thu01/13/18 at 1100, Until Thu01/13/18 at 1447, Routine, Preprocedure 1109 (New Bag - Prov ider: Divya Lowe RN)1234 (Completed - Provider: Lindsay Cruz RN) PRN Medication Order 01/11/2018 01/12/2018 01/13/2018 meperidine (PF) (DEMEROL) 100 mg/mL injection 25-200 mg 25-200 mg, intravenous, ONCE PRN, 1 dose, Starting on Thu01/13/18 at 1043, Until Thu01/13/18 at 1447, Other, sedation, Routine, Intraprocedure midazolam (MDV) (VERSED) injection 1-10 mg 1-10 mg, intravenous, ONCE PRN, 1 dose, Starting on Thu01/13/18 at 1043, Until Thu01/13/18 at 1447, Sedation, Routine, Intraprocedure sodium chloride 0.9 % flush 3 mL 3 mL, intravenous, PRN, Starting on Thu01/13/18 at 1043, Until Thu01/13/18 at 1447, Line Care, Routine, Preprocedure documented in this encounter Orders Medications Ordered That Neptali ht Not Have Been Administered Count Last Ordered Date First Ordered Date meperidine (PF) (DEMEROL) 10 0 mg/mL injection 25-200 mg 1 01/13/2018 midazolam (MDV) (VERSED) injection 1-10 mg 1 01/13/2018 sodium chloride 0.9 % flush 3 mL 1 01/14/20 Transfer Count Last Ordered Date First Orde red Date NOTIFY PPS OF DISCHARGE COMPLETE 1 01/14/20 Discharge Count Last Ordered Date First Orde red Date DISCHARGE PATIENT 1 01/13/2018 documented in this encounter Care Teams Dicer Machine Operator Relationship Specialty Start Date End Date Ac Brand APRN [address] [place] [address] PCP - General 01/30/15 documented as of this encounter
--- OUTSIDE RECORDS SUMMARY | 2024-09-24 15:10 | XMS_ITS | Encounter Summary ---
Author Organization [facility] Address [address] [place] [address] Care Team Providers Care Java Software Name Role Phone Roxanne Lu APRN Primary Care Provider Unavailable Encounter Details Date Type Department Care Team (Late st Contact Info) Description 09/20/2009 Orders Only [facility] [phone] Terrence Cohn MD [address] [place] [address] [address] [place], [place] [address] Social History Tobacco Use Types Packs/Day Years [...] on filedocumented in this encounter Care Teams Java Software Relationship Specialty Start Date End Date Roxanne Lu APRN PCP - General 09/17/09 01/29/15 documented as of this encounter
--- OUTSIDE RECORDS SUMMARY | 2024-09-24 15:10 | XMS_ITS | Encounter Summary ---
Author Organization [facility] Address [address] [place] [address] Care Team Providers Care Music Researcher Name Role Phone BrandAc Mars CARRERA Primary Care Provider [phone] Encounter Details Date Type Department Care Team (Late st Contact Info) Description 02/26/2023 Lab Requisition [facility] Pathology & Laboratory Medicine - [address] [address] Outr Resulting Lab, Provider Social History Tobacco [...] Procedure Name Priority Date/Time Associated Diagnosis Comments HIV 1/2 ANTIGEN AND ANTIBODY, 4TH GENERATION Routine 02/25/2023 17:51 EDT documented in this encounter Results * HIV 1/2 ANTIGEN AND ANTIBODY, 4TH GENERATION (02/25/2023 17:51 EDT) HIV 1 and 2 Antibody/p24 Antigen, 4th Generation Negative Negative 02/27/2023 11:00 EDT [facility] Comment:If acute HIV-1 infec tion is suspected in a high risk patient, submit plasma specimen for HIV-1 RNA quantitation test. Blood VENOUS BLOOD / Unknown 02/25/2023 17:51 EDT 02/26/2023 17:53 EDT Narrative [facility] - 02/27/2023 11:00 EDT Fourth Generation assay performed on the Siemens Centaur XPT. us Provider Outr Resulting Lab IMMUNOLOGY AND SEROL OGY ORDERABLES Final Result [facility] [address] [place] [address] documented in this encounter Visit Diagnoses Not on filedocumented in this encounter Care Teams Music Researcher Relationship Specialty Start Date End Date Ac Brand APRN [address] [place] [address] [address] [place] [address] PCP - General 01/30/15 documented as of this encounter
--- OUTSIDE RECORDS SUMMARY | 2024-09-24 15:10 | XMS_ITS | Encounter Summary ---
Author Organization [facility] Address [address] [place] [address] Care Team Providers Care Pipe Covering Molder Name Role Phone BrandAc Mars CARRERA Primary Care Provider [phone] Encounter Details Date Type Department Care Team (Late st Contact Info) Description 03/20/2023 Lab Requisition [facility] Pathology & Laboratory Medicine - [address] [address] Outr Resulting Lab, Provider Social History Tobacco [...] Procedure Name Priority Date/Time Associated Diagnosis Comments CHLAMYDIA/N. GONORRHOEAE AMPLIFIED NUCLEIC ACID Routine 03/20/2023 16:37 EDT documented in this encounter Results * CHLAMYDIA/N. GONORRHOEAE AMPLIFIED RNA (03/20/2023 16:37 EDT) Neisseria gonorrhoeae Result Negative Negative 03/21/2023 13:45 EDT [facility] Chlamydia trachomatis Result Negative Negative 03/21/2023 13:45 EDT [facility] Swab ENTIRE ENDOCERVIX / Unknown 03/20/2023 16:37 EDT 03/20/2023 22:47 EDT us Provider Outr Resulting Lab MICROBIOLOGY - GENER AL ORDERABLES Final Result Performing Organization Address City/State/[facility] Co de Phone Number [facility] [address] [place] [address] documented in this encounter Visit Diagnoses Not on filedocumented in this encounter Care Teams Pipe Covering Molder Relationship Specialty Start Date End Date Ac Brand APRN [address] [place] [address] [address] [place], [place] [address] PCP - General 01/30/15 documented as of this encounter
--- OUTSIDE RECORDS SUMMARY | 2024-09-24 15:10 | XMS_ITS | Encounter Summary ---
Author Organization [facility] Address [address] [place] [address] Care Team Providers Care Tobacco Blender Name Role Phone Unavailable Primary Care Provider Unavailabl e Encounter Details Date Type Department Care Team (Late st Contact Info) Description 04/06/2009 Orders Only [facility] Laboratory Services - [facility] ([facility] [address] [place], [place] [id number] Richa Cohn MD [address] [place] [address] [address] [place], [place] [id number] Social History Tobacco Use Types Packs/Day Years [...] Priority Date/Time Associated Diagnosis Comments CYTOPATHOLOGY Routine 04/06/2009 0:00 EDT documented in this encounter Results * CYTOPATHOLOGY (04/06/2009 0:00 EDT) Pathology Report: CYTOPATHOLOGY REPORT ? Reports generated via electronic interface contain original data; ? however they are lacking the format of the original report. ? Caution should be taken when reading/interpreti ng unformatted reports. ? Name: ? JUDY LAFLEUR ? Accession #: ? [id number] ? : ? 1980 (Age: 28) ??F ?Collect Date: ? 04/06/2009 ? Location: ? [facility] ? Receive Date: ? 04/09/2009 ? Provider: ?RICHA COHN MD ? Copy to: ? Specimen/Source: ?Pap Test, Cervix/Endocervix, ThinPrep Imaging System ? with manual evaluation ? Last Menstrual Period: ? 7/4/09 ? Other: ? HPVA - HPV testing requested if ASC-US on the current ThinPrep Pap test. ? SPECIMEN ADEQUACY ? Satisfactory for Evaluation ? - transformation zone component present ? GENERAL CATEGORIZATION ? Negative for Intraepithelial Lesion or Malignancy ? INTERPRETATION ? Reactive cellular changes associated with inflammation present (includes ?? repair). ? Document reviewed and electronically signed by: ? TRAEWYN ERICK MD [facility] ? Report Date: ??04/17/2009 16:08 ? End of Report ? JULIEN RUFF 04/06/2009 04/09/2009 us Richa Cohn MD PATHOLOGY ORDERABLES Final Resul t [facility] [address] [place] [address] documented in this encounter Visit Diagnoses Not on filedocumented in this encounter
--- OUTSIDE RECORDS SUMMARY | 2024-09-24 15:10 | XMS_ITS | Encounter Summary ---
Author Organization [facility] Address [address] [place] [address] Care Team Providers Care Community Services Manager Name Role Phone Ac Brand Mars DEANDRE Primary Care Provider [phone] Encounter Details Date Type Department Care Team (Late st Contact Info) Description 02/26/2023 Lab Requisition [facility] Pathology & Laboratory Medicine - [address] [address] Outr Resulting Lab, Provider Social History Tobacco [...] Procedure Name Priority Date/Time Associated Diagnosis Comments RUBELLA IGG ANTIBODY Routine 02/25/2023 17:51 EDT documented in this encounter Results * RUBELLA IGG ANTIBODY (02/25/2023 17:51 EDT) Rubella IgG Ab Positive See Note 02/27/2023 11:21 EDT [facility] Comment:Positive for IgG ant ibodies to Rubella virus. Blood VENOUS BLOOD / Unknown 02/25/2023 17:51 EDT 02/26/2023 17:53 EDT us Provider Outr Resulting Lab CHEMISTRY & BLOOD GA S ORDERABLES Final Result [facility] [address] [place] [address] documented in this encounter Visit Diagnoses Not on filedocumented in this encounter Care Teams Community Services Manager Relationship Specialty Start Date End Date Ac Brand APRN [address] [place] [address] [address] [place] [address] PCP - General 01/30/15 documented as of this encounter
--- OUTSIDE RECORDS SUMMARY | 2024-09-24 15:10 | XMS_ITS | Encounter Summary ---
Author Organization [facility] Address [address] [place] [address] Care Team Providers Care Manager Applied Name Role Phone CathieLatrellgiselle Crews APRN Primary Care Provider [phone] Encounter Details Date Type Department Care Team (Latest Contact Info) Description 11/05/2017 11:49 EDT - 11/05/2017 23:59 EDT Hospital Encounter [address] [address] Unknown, Provider, MD Discharge Disposition: Auto Discharge Social History Tobacco Use Types Packs/Day Years [...] by mouth as needed for Sleep 01/06/2018 FLUoxetine (PROZAC) 20 mg capsule Take 20 mg by mouth daily 01/06/2018 levonorgestrel-et hinyl estradiol (TOM) 90-20 mcg per tablet Take 1 Tab by mouth daily 01/06/2018 oxyCODONE-acetami nophen (PERCOCET) 5-325 mg per tablet Take 2 Tabs by mouth every 4 hours as needed for Pain 01/06/2018 documented as of this encounter Discharge Disposition Disposition Code Departure Means Destination Auto Discharge Home documented in this encounter Plan of Treatment Not on file documented as of this encounter Visit Diagnoses Not on filedocumented in this encounter Care Teams Manager Applied Relationship Specialty Start Date End Date Ac Brand APRN [address] [place] [address] [address] [place] [address] PCP - General 01/30/15 documented as of this encounter
--- OUTSIDE RECORDS SUMMARY | 2024-09-24 15:10 | XMS_ITS | Encounter Summary ---
Author Organization [facility] Address [address] [place] [address] Care Team Providers Care Model And Pattern Supervisor Name Role Phone Ac Brand APRN Primary Care Provider [phone] Encounter Details Date Type Department Care Team (Late st Contact Info) Description 11/05/2017 Results Only [facility] [phone] Lashonda Chavez MD [address] [place] [id number] Social History Tobacco Use Types Packs/Day Years [...] Procedure Name Priority Date/Time Associated Diagnosis Comments SURGICAL PATHOLOGY Routine 11/05/2017 8:15 EDT documented in this encounter Results * SURGICAL PATHOLOGY (11/05/2017 8:15 EDT) Pathology Report: SURGICAL PATHOLOGY REPORT Reports generated via electronic interface contain original data; however they are lacking the format of the original report. Caution should be taken when reading/interpret ing unformatted reports. Name: ? JUDY LAFLEUR ? Accession #: ? [id number] ? : ? 1980 (Age: 36) ??F ? Collect Date: ? 11/05/2017 ? Location: ? [facility] ? Receive Date: ? 11/05/2017 ? Provider: LASHONDA CHAVEZ II, MD Copy to: IRAIS FOSTER MD ? Final Pathologic Diagnosis: GALLBLADDER, CHOLECYSTECTOMY: - Mild chronic cholecystitis. - Cholelithiasis. Document reviewed and electronically signed by: DELVIN GONZALES MD Report ??Date: 11/10/2017 16:04 By the signature above, the attending physician certifies that he/she has personally conducted a gross and/or microscopic examination of the described specimens and rendered or confirmed the above diagnosis. Specimen(s) Received: Gallbladder Clinical History: Cholecystitis Gross Description: ? Received in formalin labelled with proper patient identification (initials K, M) and gallbladder is an intact gallbladder (11.5 x 2.2 x 1.1 cm). The cystic duct margin is inked blue. ? The serosa is cannon-purple, hyperemic, smooth, and glistening. The mucosa is bile stained green, soft, and velvety, with a focal area that is trabeculated. The wall thickness ranges from 0.1-0.2 cm. Within the cavity is a single yellow-green ovoid gallstone (3.2 x 2.1 x 1.7 cm). The cystic duct margin, en face, and two member service representative sections are submitted in 1. RAE Anderson (ASCP) 11/06/2017 9:30 AM End of Report [facility] 11/05/2017 8:15 EDT 11/05/2017 8:15 EDT us Lashonda Chavez MD PATHOLOGY ORDERABLES Final Re sult [facility] [address] [place] [address] documented in this encounter Visit Diagnoses Not on filedocumented in this encounter Care Teams Model And Pattern Supervisor Relationship Specialty Start Date End Date Ac Brand APRN [address] [place] [address] [address] [place], [place] [id number] PCP - General 01/30/15 documented as of this encounter
--- OUTSIDE RECORDS SUMMARY | 2024-09-24 15:10 | XMS_ITS | Encounter Summary ---
Author Organization [facility] Address [address] [place] [address] Care Team Providers Care Advanced Practice Professional Name Role Phone Lindsay Last APRN Primary Care Provider Unavailable Gsu George MD Primary Care Provider [phone] Gus George MD Primary Care Provider [phone] Encounter Details Date Type Department Care Team (Late st Contact Info) Description 08/15/2003 Results Only [facility] [address] [place] [address] Lindsay Last APRN Social History Tobacco Use [...] Priority Date/Time Associated Diagnosis Comments CYTOPATHOLOGY Routine 08/15/2003 0:00 EST documented in this encounter Results * CYTOPATHOLOGY (08/15/2003 0:00 EST) Pathology Report: CYTOPATHOLOGY REPORT Reports generated via electronic interface contain original data; however they are lacking the format of the original report. Caution should be taken when reading/interpreti ng unformatted reports. Name: ? JUDY LAFLEUR ? Accession #: ? [id number] : ? 1980 (Age: 22) ??F ?Collect Date: ? 08/15/2003 Location: ? [facility] ? Receive Date: ? 08/17/2003 Provider: ?LINDSAY LAST WIRE MESH FILTER FABRICATOR Copy to: ? Specimen/Source: ?ThinPrep Pap Test, Cervix/Endocervix Last Menstrual Period: ? 08/06/03 Hormonal/Contracep tive Status: ? Yes Other: ? HPVA - HPV testing requested if ASC-US on the current ThinPrep Pap test. ? SPECIMEN ADEQUACY ? Satisfactory for Evaluation - transformation zone component present GENERAL CATEGORIZATION ? Negative for Intraepithelial Lesion or Malignancy ? Document reviewed and electronically signed by: ? TANIYA Ashley(ASCP) ? Report Date: ??08/22/2003 15:13 End of Report JULIEN RUFF 08/15/2003 08/17/2003 us Lindsay Last APRN PATHOLOGY ORDERABLES Fi nal Result [facility] [address] [place] [address] documented in this encounter Visit Diagnoses Not on filedocumented in this encounter Care Teams Advanced Practice Professional Relationship Specialty Start Date End Date Lindsay Last APRN PCP - General 09/17/09 01/29/15 Gus George MD [address] [facility] [address] [place] [id number] PCP - General 05/04/09 09/16/09 Gus George MD [address] [place] [id number] PCP - General 05/03/09 05/03/09 documented as of this encounter
--- OUTSIDE RECORDS SUMMARY | 2024-09-24 15:10 | XMS_ITS | Encounter Summary ---
Author Organization [facility] Address [address] [place] [address] Care Team Providers Care Recruiting Specialist Name Role Phone Ac Brand APRN Primary Care Provider [phone] Reason for Referral * Consult (Routine) - Closed Specialty Diagnoses / Procedures Referred By Elisa herman Referred To Contact Pain Medicine Diagnoses Low back pain radiating to left leg Cindi Cuellar PA-C Phone: tel: fax: [facility] Interventional Pain [address] [place] [address] Phone: tel: fax: Referral ID Status Reason Start Date Expiration Date V isits Requested Visits Authorized [id number] Closed Specialty Services Required 02/21/2015 1 1 Question Answer Reason for Request: Low back pain radiating to left leg Comments Recommend LEFT S1 TFESI * Radiology Services (Routine) - Closed Specialty Diagnoses / Procedures Referred By Elisa herman Referred To Contact Procedures L SPINE 4 OR MORE VIEWS Cindi Cuellar PA-C Phone: tel: fax: Referral ID Status Reason Start Date Expiration Date Visits Re quested Visits Authorized [id number] Closed 02/21/2015 1 1 Reason for Visit * Reason Comments Back Pain * Consult (Routine) - Closed Specialty Diagnoses / Procedures Referred By Elisa herman Referred To Contact Orthopedic Surgery Diagnoses Back pain with radiation Ac Brand, CUSTOM DESIGNER [address] [facility] [address] [place] [address] Phone: tel: fax: [facility] - [address] [place] [address] Phone: tel: fax: Referral ID Status Reason Start Date Expiration Date Visits Re quested Visits Authorized [id number] Closed 1 1 Encounter Details Date Type Department Care Team (Late st Contact Info) Description 02/21/2015 10:45 EDT Office Visit [facility] - [address] [facility] [place] [address] Cindi Cuellar PA-C [address] [place] [address] [place] [address] Low back pain radiating to left leg (Primary Dx) Discharge Disposition: Auto Discharge Social History Tobacco [...] Sign Reading Time Taken Comments Blood Pressure - - Pulse - - Temperature - - Respiratory Rate - - Oxygen Saturation - - Inhaled Oxygen Concentration - - Weight 61.7 kg (136 lb) 02/21/2015 1049 EDT Height 167.6 cm (5' 6) 02/21/2015 1049 EDT Body Mass Index 21.95 02/21/2015 1049 EDT documented in this encounter Discharge Diagnoses Diagnosis 724.2 LUMBAGO[ICD-9-CM] documented in this encounter Discharge Disposition Disposition Code Departure Means Destination Auto Discharge documented in this encounter Progress Notes * Cindi Cuellar PA - 02/21/2015 1117 EDT Judy Lafleur is being seen as a consultation from Dr. Brand. Chief Complaint Patient presents with ??? Back Pain The encounter diagnosis was Low back pain radiating to left leg. HPI Ms. Lafleur is a 34 y.o. pleasant female who presents to the clinic today with 90% LBP, worse on theleft, and 10% RLE pain affecting the posterior aspect of her thigh, the proximal 1/3 of the posterior aspect of her lower leg, and the first two toes. Occasionally, she experiences numbness/tingling in the anterior aspect of her thigh and the first two toes. The patient reports acute onset of symptoms that started at the end of December 2014. Symptoms have been persisting since onset. She has tried PT, which helped temporarily. She has not tried CHIRO or injections. Traction alleviates her symptoms the most. Bending forward, standing, and sitting aggravate her symptoms. She rates her pain as 4/10. HPI Patient Active Problem List Diagnosis ??? Other Specified Screening ??? Low back pain radiating to left leg Past Medical History Diagnosis Date ??? Anxiety Past Surgical History Procedure Laterality Date ??? Hand surgery Left tenosynovitis History Substance Use Topics ??? Smoking status: Never Smoker ??? Smokeless tobacco: Not on file ??? Alcohol Use: Yes Comment: occasionally No family history on file. Current Outpatient Prescriptions Medication Sig Dispense Refill ??? ALPRAZolam (XANAX) 0.5 mg tablet Take 0.5 mg by mouth as needed for Sleep ??? FLUoxetine (PROZAC) 20 mg capsule Take 20 mg by mouth daily ??? levonorgestrel-ethinyl estradiol (TOM) 90-20 mcg per tablet Take 1 Tab by mouth daily ??? oxyCODONE-acetaminophen (PERCOCET) 5-325 mg per tablet Take 2 Tabs by mouth every 4 hours as needed for Pain No current facility-administered medications for this visit. No Known Allergies Review of Systems Constitutional: Positive for activity change. Negative for unexpected weight change. Eyes: Negative for visual disturbance. Respiratory: Negative for chest tightness. Cardiovascular: Negative for chest pain. Gastrointestinal: Negative for constipation. Genitourinary: Negative for difficulty urinating. Musculoskeletal: Positive for back pain. Negative for neck pain. Skin: Negative for rash. Neurological: Positive for numbness. Psychiatric/Behavioral: Negative for behavioral problems and agitation. Physical Exam Constitutional: She is oriented to person, place, and time. She appears well- developed and well-nourished. HENT: Head: Normocephalic and atraumatic. Eyes: EOM are normal. Neurological: She is alert and oriented to person, place, and time. Skin: Skin is warm and dry. No rash noted. Back Exam Comments: GAIT: Normal. HEEL & TOE WALKING: NEG. LESIONS, RASHES OR HAIR RONIT: NEG. FROM: TENDERNESS ON PALPATION: NEG. STRENGTH: 5/5 REFLEXES: Patellar 2/4 B/L; Achilles 2/4 B/L. BABINSKI: Down. CLONUS: NEG. DP: 2/2. SENSATION: Intact. SLR RIGHT: NEG. LEFT: NEG. HIP ROM: Full. BETHEL'S: NEG. Neurologic Exam Mental Status Oriented to person, place, and time. Cranial Nerves CN III, IV, Extraocular motions are normal. Today, 02/21/2015, I ordered plain radiographs and I independently reviewed the following: Plain radiographs (AP/Lat/Flex/Ex): 1. Five (5) non-rib bearing lumbar vertebrae 2. There is a right convex curvature in lumbar spine with apex at L3 - L4 3. Mild facet arthropathy of the lower lumbar spine 4. Disc height reduction at L5-S1 conistent with degenerative disc disease 5. No fractures or pars defects noted MRI from prior work up in January 2015: L5-S1: Disc protrusion at L5-S1 which extrudes caudally and to the left. This causes mass effect upon the S1 and S2 nerve roots Assessment 34 y.o. male with LBP most likely from degenerative disc and facet disease and LLE pain along the S1 dermatome most likely radicular in nature secondary to a left-sided disc extrusion at L5-S1 level.She has agreed to the following plan. Other Orders Placed This Visit Procedures ??? L SPINE 4 OR MORE VIEWS ??? Amb Consult/Follow Up Pain Interventional Plan: 1. Order LEFT S1 TFESI 2. Continue activity as tolerated 3. Cannot take Gabapentin (side effects, mainly severe somnolence) 4. Return to clinic post TFESI 5. If no relief from S1 TFESI, consider L5-S1 [place] vs surgical consultation CC: Dr. Cathie Johnson was the attending physician available in the clinic today if needed. A consultation was not required. documented in this encounter Plan of Treatment Scheduled Referrals Name Type Priority Associated Diagnoses Order Schedule AMB CONS/FOLLOW UP PAIN INTERVENTIONAL Outpatient Referral Routine Low back pain radiating to left leg Ordered: 02/21/2015 documented as of this encounter Procedures Procedure Name Priority Date/Time Associated Diagnosis Comments L SPINE 4 OR MORE VIEWS Routine 02/21/2015 11:05 EDT documented in this encounter Results * L SPINE 4 OR MORE VIEWS (02/21/2015 11:05 EDT) Anatomical Region Laterality Modality Other 02/21/2015 11:0 5 EDT 02/21/2015 15:17 EDT Narrative 02/21/2015 15:17 EDT 4 views of the lumbar spine February 21, 2015. History: Low back pain. Comparison: None. Findings: AP, lateral, and flexion and extension views of the lumbar spine were acquired. There is mild dextroscoliosis with its apex at L3. In the neutral lateral projection alignment is anatomic and disc space heights appear maintained with the exception of mild narrowing at the L5-S1 level. In flexion and extension no instability is present. Procedure Note Vicente Hill MD - 02/21/2015 4 views of the lumbar spine February 21, 2015. History: Low back pain. Comparison: None. Findings: AP, lateral, and flexion and extension views of the lumbar spine were acquired. There is mild dextroscoliosis with its apex at L3. In the neutral lateral projection alignment is anatomic and disc space heights appear maintained with the exception of mild narrowing at the L5-S1 level. In flexion and extension no instability is present. Cindi Cuellar PA-C IMG DIAGNOSTIC IMAGING ORDERABLES Final Result documented in this encounter Visit Diagnoses Diagnosis Low back pain radiating to left leg- Primary Lumbago documented in this encounter Historical Medications * This list may reflect changes made after this encounter. oxyCODONE-acetami nophen (PERCOCET) 5-325 mg per tablet Take 2 Tabs by mouth every 4 hours as needed for Pain 01/06/2018 ALPRAZolam (XANAX) 0.5 mg tablet Take 0.5 mg by mouth as needed for Sleep 01/06/2018 FLUoxetine (PROZAC) 20 mg capsule Take 20 mg by mouth daily 01/06/2018 levonorgestrel-et hinyl estradiol (TOM) 90-20 mcg per tablet Take 1 Tab by mouth daily 01/06/2018 added in this encounter Care Teams Recruiting Specialist Relationship Specialty Start Date End Date Ac Brand APRN [address] [place] [address] [address] [place] [address] PCP - General 01/30/15 documented as of this encounter
--- OUTSIDE RECORDS SUMMARY | 2024-09-24 15:10 | XMS_ITS | Encounter Summary ---
Author Organization [facility] Address [address] [place] [address] Care Team Providers Care Emt/Dispatcher Name Role Phone Ac Brand Mars CARRERA Primary Care Provider [phone] Encounter Details Date Type Department Care Team (Late st Contact Info) Description 02/26/2023 Lab Requisition [facility] Pathology & Laboratory Medicine - [address] [address] Outr Resulting Lab, Provider Social History Tobacco [...] Procedure Name Priority Date/Time Associated Diagnosis Comments SYPHILIS SEROLOGY Routine 02/25/2023 17: 51 EDT documented in this encounter Results * SYPHILIS SEROLOGY (02/25/2023 17:51 EDT) Syphilis Serology Negative Negative 02/27/2023 13:23 EDT [facility] Blood VENOUS BLOOD / Unknown 02/25/2023 17:51 EDT 02/26/2023 17:53 EDT us Provider Outr Resulting Lab IMMUNOLOGY AND SEROL OGY ORDERABLES Final Result [facility] [address] [place] [address] documented in this encounter Visit Diagnoses Not on filedocumented in this encounter Care Teams Emt/Dispatcher Relationship Specialty Start Date End Date Ac Brand APRN [address] [place] [address] [address] [place] [address] PCP - General 01/30/15 documented as of this encounter
--- OUTSIDE RECORDS SUMMARY | 2024-09-24 15:10 | XMS_ITS | Encounter Summary ---
Author Organization [facility] Address [address] [place] [address] Care Team Providers Care Mill Operator Helper Name Role Phone Roxanne Lu APRN Primary Care Provider Unavailable Reason for Visit * Reason Comments Non-stress Test abnormal heart rate rhythm Encounter Details Date Type Department Care Team (Late st Contact Info) Description 09/19/2009 15:15 EST Nurse Only [facility] Obstetrics & Midwifery - [address] [phone] Unknown, Provider, Nurse, [facility] Social History Tobacco Use Types Packs/Day Years Used Date Smoking Tobacco: Never Assessed Comments Yes Sex and Gender Information Value Date Recorded Sex Assigned at Not on file Legal Sex Female 18:28 EST Gender Identity Not on file Sexual Orientation Not on file documented as of this encounter Last Filed Vital Signs Vital Sign Reading Time Taken Comments Blood Pressure 104/60 09/19/2009 1517 EST Pulse - - Temperature - - Respiratory Rate - - Oxygen Saturation - - Inhaled Oxygen Concentration - - Weight - - Height - - Body Mass Index - - documented in this encounter Progress Notes * Kimberly Saldivar RN - 09/19/2009 1516 EST See strip documented in this encounter Plan of Treatment Not on file documented as of this encounter Visit Diagnoses Not on filedocumented in this encounter Care Teams Mill Operator Helper Relationship Specialty Start Date End Date Roxanne Lu APRN PCP - General 09/17/09 01/29/15 documented as of this encounter
--- OUTSIDE RECORDS SUMMARY | 2024-09-24 15:10 | XMS_ITS | Encounter Summary ---
Author Organization [facility] Address [address] [place] [address] Care Team Providers Care Dining Room Manager Name Role Phone Ac Brand APRN Primary Care Provider [phone] Encounter Details Date Type Department Care Team (Late st Contact Info) Description 04/24/2015 Orders Only [facility] Spine Program - [address] [place], [place] [phone] Cindi Cuellar PA-C [address] [facility] [place] [address] Social History Tobacco Use Types Packs/Day Years [...] on filedocumented in this encounter Care Teams Dining Room Manager Relationship Specialty Start Date End Date Ac Brand APRN [address] [place] [address] [address] [place] [address] PCP - General 01/30/15 documented as of this encounter
[2024-09-24 15:15] LABS: COVID-19 PCR Negative (Negative); Influenza A PCR Positive (Negative); Influenza B PCR Negative (Negative); RSV PCR Negative (Negative)
[2024-09-24 15:20] LABS: Source Nasopharynx
== END 2024-09-24 15:20 | disposition home or self-care (01) ==
LOC: ER 15:03
PROVIDERS: Emergency Provider Student in an Organized Health Care Education/Training Program; PCP Nurse Practitioner Family
DX: J10.00 Influenza due to other identified influenza virus with unspecified type of pneumonia (principal)
CPT/HCPCS: 76604; 87637; 99284

== ENCOUNTER 2025-04-02 18:34 | Observation (INO) | payer MEDICAID, SELFPAY ==
[2025-04-02 18:38] VITALS: BP 122/60; PULSE 68; RESP 18; TEMP 36.8; O2SAT 97
--- NOTE | 2025-04-02 18:42 | W.ED.GENAD ---
Discharge Plan Disposition Patient Disposition: Admit to [facility] Discharge Details Clinical Impression: Acute appendicitis Primary Care Provider: Ac Brand ED Provider: Chuck Rojas [facility] General Date/Time Provider Initiated Documentation: 04/02/25 18:42. HPI Narrative: MDM/Narrative: 44-year-old female with right lower quadrant abdominal pain, bloating, and pain radiating to back. No history of similar episodes, kidney stones, or significant UTIs. No dysuria. Irregular menstrual cycles due to control pills. No discharge or bleeding. Differential Diagnosis: - Ovarian pathology: Considered due to pain location; will consider obtaining an ultrasound if CT scan is on remarkable. - Intra-abdominal infection such as acute appendicitis, CT scan ordered. - UTI: Unlikely; no dysuria. ED Course: Pain medication and antiemetics administered. CT scan ordered. 20:42 CT results reviewed, consistent with acute appendicitis. Case discussed with Dr. Lou of general surgery, who agrees to place patient under her care and observation with plan to go to the OR tomorrow. Recommends a dose of Zosyn now in the ER. Clinical Impression: - Acute appendicitis This document was created with assistance from [employer] Assignment Reporter. The patient consented to its use. Disposition: Observation HPI: The patient is a 44-year-old female with a history of cholecystectomy, presenting with acute abdominal pain. The onset of right lower quadrant abdominal pain occurred this morning, initially suspected to be ovarian in origin. The pain persisted despite ingestion of food and administration of ibuprofen. The patient reports associated bloating and referred pain to the back. This is the first occurrence of these symptoms. Her last meal was at 1230 hours, consisting of crackers and peanut butter. She denies dysuria and maintains a high water intake. The patient has irregular menstrual cycles secondary to contraceptive pill use, with no abnormal vaginal discharge or bleeding. She has no history of nephrolithiasis or urinary tract infections. The pain was exacerbated by movement during transportation to the hospital. PAST SURGICAL HISTORY: The patient has undergone cholecystectomy, which was complicated by a bile leak necessitating drainage and stent placement at the [facility] ([facility]). Additionally, she has a history of wrist surgery. ROS: Negative besides as mentioned above Exam: Vital signs: Reviewed. General Appearance: Alert and oriented. No acute distress. HEENT: NCAT, EOMI, not icteric. External ears normal. No rhinorrhea. Moist mucous membranes. Neck: Supple, full range of motion, no observable masses, No meningeal sign. Respiratory: No Respiratory distress. No tachypnea. Cardiovascular: RRR, no edema. Gastrointestinal: Tenderness in right lower quadrant, exacerbated by palpation, positive McBurney sign. No tenderness on left side. Negative costovertebral angle tenderness bilaterally Back: No midline tenderness to palpation or palpable step-offs of the C/T/L spine. Skin: Warm and dry, no rash. Neurological: Normal Gait, Grossly intact. Psychiatric: Appropriate for situation. Labs: Laboratory Tests Range/Units 04/02/25 04/02/25 04/02/25 18:50 19:00 19:53 WBC (4.4-10.8) 10^3/uL 11.94 H RBC (3.93-5.22) 10^6/uL 4.48 Hgb (11.2-15.7) g/dL 14.2 Hct (36.0-46.0) % 41.7 MCV (80-95) fL 93 MCH (27.0-33.0) pg 31.7 MCHC (32.0-36.0) % 34.1 RDW (11.7-14.6) % 12.0 Plt Count (130-400) 10^3/uL 333 MPV (8.0-11.0) fL 8.6 Immature Gran % % 0.3 Neutrophils % % 76.7 Lymphocytes % % 16.4 Monocytes % % 5.5 Eosinophils % % 0.8 Basophils % % 0.3 Nucleated RBC % (0.0-0.3) % 0.0 Absolute Neutrophils (1.2-6.7) 10^3/uL 9.16 H Absolute Lymphocytes (1.2-3.4) 10^3/uL 1.96 Absolute Monocytes (0.1-0.8) 10^3/uL 0.66 Absolute Eosinophils (0.0-0.7) 10^3/uL 0.10 Absolute Basophils (0.0-0.2) 10^3/uL 0.04 VBG Lactate (<or=2.0) mmol/L 0.5 Sodium (136-145) mmol/L 141 Potassium (3.5-5.1) mmol/L 3.5 Chloride (98-107) mmol/L 102 Carbon Dioxide (21.0-32.0) mmol/L 30.0 Anion Gap (3-11) mmol/L 9.0 BUN (7-18) mg/dL 12 Creatinine (0.55-1.02) mg/dL 0.8 Est GFR (CKD-EPI 2020) (mL/min/1.73m2) 93.12 Glucose (74-106) mg/dL 80 Calcium (8.5-10.1) mg/dL 9.3 Magnesium (1.8-2.4) mg/dL 2.0 Total Bilirubin (0.2-1.0) mg/dL 0.3 AST (15-37) U/L 16 ALT (14-59) U/L 22 Alkaline Phosphatase (46-116) U/L 93 Troponin I (<or=51) ng/L < 4 < 4 Total Protein (6.4-8.2) g/dL 8.0 Albumin (3.4-5.0) g/dL 3.9 Lipase (<78) U/L 29 Urine Color (Yellow) Yellow Urine Clarity (Clear) Sl Cloudy Urine pH (5-8) 6.0 Ur Specific [place] (1.005-1.025) 1.015 Urine Protein (Neg-Trace) mg/dL Negative Urine Ketones (Negative) mg/dL Negative Urine Blood (Negative) Trace-intact H Urine Nitrite (Negative) Negative Urine Bilirubin (Negative) Negative Urine Urobilinogen (Up to 0.2) mg/dL 0.2 Ur Leukocyte Esterase (Negative) Trace H Urine RBC (0-2) HPF 0-2 Urine WBC (0-5) HPF 3-5 Ur Epithelial Cells (Negative) HPF Moderate Urine Crystals (Negative) HPF Negative Urine Bacteria (Negative) HPF Few Urine Casts (Negative) LPF Negative Urine Mucus (Negative) Negative Ur Culture Indicated? No Urine Glucose (Negative) mg/dL Negative Urine HCG, Qual Negative Radiology: Addendum created by Debbie Flood MD on 04/02/2025 8:40 PM Eastern Time ([place] & [place]): I discussed case findings with Chuck Rojas 04/02/2025 8:39 PM EDT. Initial Report created on 04/02/2025 8:36 PM Eastern Time ([place] & [place]): PROCEDURE INFORMATION: Exam: CT Abdomen And Pelvis With Contrast Exam date and time: 04/02/2025 7:44 PM Age: 44 years old Clinical indication: Abdominal pain; Right lower quadrant (rlq); Right flank and rlq pain TECHNIQUE: Imaging protocol: Computed tomography of the abdomen and pelvis with contrast. COMPARISON: No relevant prior studies available. FINDINGS: Liver: Normal. No mass. Gallbladder and biliary ducts: Status post cholecystectomy. Pancreas: Normal. No ductal dilation. Spleen: Normal. No splenomegaly. Adrenal glands: Normal. No mass. Kidneys and ureters: Normal. No hydronephrosis. Stomach and bowel: Unremarkable. No obstruction. No mucosal thickening. Appendix: The appendix is retrocecal and abnormally thickened and dilated. It measures up to 11 mm in diameter with adjacent inflammatory change. No definite evidence for rupture. Intraperitoneal space: Unremarkable. No free air. No significant fluid collection. Vasculature: Unremarkable. No abdominal aortic aneurysm. Lymph nodes: Unremarkable. No enlarged lymph nodes. Urinary bladder: Unremarkable as visualized. Reproductive: Unremarkable as visualized. Bones/joints: Mild lumbar spondylosis. Soft tissues: Unremarkable. IMPRESSION: Severe, acute appendicitis. No evidence for rupture. Thank you for allowing us to participate in the care of your patient. Related Data Allergies Allergy/AdvReac Type Severity Reaction Status Date / Time No Known Allergies Allergy Unverified 04/02/25 18:44 General [place]: 3 PFSH All Active Problems (Updated 04/02/25 @ 21:16 by Chuck Rojas MD) Acute appendicitis (Acute) Social History Smoking/Tobacco Use Status: Never Smoking risk assessment performed?: Yes Alcohol Intake: current Alcohol Intake frequency: holidays/special occasions only Alcohol type: wine Drug use: Never Substance use type: former substance user
[2025-04-02 18:44] VITALS: BP 122/60; PULSE 68; RESP 18; TEMP 36.8; O2SAT 97
--- NOTE | 2025-04-02 18:45 | DI.CT_ITS ---
Exam(s) CT ABDOMEN PELVIS W EXAM: CT ABDOMEN PELVIS W CLINICAL HISTORY: Right flank and RLQ pain TECHNIQUE: Imaging Protocol: Axial computed tomography images with coronal and sagittal reformatted images were created and reviewed. CONTRAST MATERIAL: Intravenous: Omnipaque 350 Contrast volume:75 mL Oral: No COMPARISON: No exams were available for comparison FINDINGS: ABDOMEN: Lung Bases: No acute abnormality. Liver: Normal density. No measurable mass. Portal, Superior Mesenteric, and Splenic Veins: Unremarkable. Gallbladder and Biliary Tract: Status post cholecystectomy. The common duct measures 7.8 mm. This likely reflects a post cholecystectomy state. Pancreas: Normal density, no abnormal calcifications or inflammatory process. Spleen: Normal. Adrenals: No masses seen. Kidneys: Normal size, contour and axis. No radiodense stones or obstructive uropathy. No masses seen. Abdominal Aorta: Abdominal portion non-dilated. Bowel: There is a question of focal wall thickening seen in the cecum at the base of the appendix. (Series 6, image 34, series 8, image 69). The appendix is retrocecal. The appendix is distended measuring 1.4 cm in diameter. There is inflammation surrounding the appendix present. The stomach is incompletely distended limiting evaluation. There is no evidence of bowel obstruction. Peritoneal Cavity: No ascites, collection or mesenteric inflammatory response. No free air. Lymph Nodes: Within normal limits. Bones: Within normal limits for the patient's age. Soft Tissues: Unremarkable. PELVIS: Bladder: Symmetric distention, no gross wall thickening. Reproductive Organs: Unremarkable as visualized. Lymph Nodes: Within normal limits. Bones: Within normal limits for the patient's age. IMPRESSION: 1. The appendix is distended measuring 1.4 cm in diameter. There is Prema appendiceal inflammation. The findings are suspicious for appendicitis. There is no evidence of pneumoperitoneum, abscess or appendicoliths. 2. Mild wall thickening seen in the cecum near the base of the appendix. This may be secondary to the adjacent appendicitis. Cecal inflammation or mass should also be considered. RADIATION DOSE DELIVERED: 463.06mGy.cm Total DLP DATA REPOSITORY: All CT scans at this facility are submitted to the National Radiology Data Registry (NRDR) Dose Index Registry (DIR) with the [employer] (ACR). RADIATION OPTIMIZATION: All CT scans at this facility use at least one of these dose optimization techniques: automated exposure control; mA and/or kV adjustment per patient size (includes targeted exams where dose is matched to clinical indication); or iterative reconstruction.
[2025-04-02 18:59] LABS: Glucose Negative (Negative)
[2025-04-02 19:01] LABS: HCG Qual (Urine) Negative
[2025-04-02] MEDS: Normal Saline 1,000 ML 1000 ML IV (19:10)
[2025-04-02] MEDS: Droperidol 5 MG/2 ML VIAL 2.5 MG IVP (19:10)
[2025-04-02] MEDS: MORPHine 10 MG/ML VIAL 6 MG IVP (19:10)
[2025-04-02 19:11] LABS: Abs Immature Grans 0.03 10^3/uL (0.0-0.06); HCT 41.7 % (36.0-46.0); HGB 14.2 g/dL (11.2-15.7); Immature Grans % 0.3 %; MCH 31.7 pg (27.0-33.0); MCHC 34.1 % (32.0-36.0); MCV 93 fL (80-95); MPV 8.6 fL (8.0-11.0); Platelet Count 333 10^3/uL (130-400); RBC 4.48 10^6/uL (3.93-5.22); RDW 12.0 % (11.7-14.6); RDW-SD 41.7 fL; WBC 11.94 10^3/uL (4.4-10.8)
[2025-04-02 19:14] LABS: C & S Indicated? No; RBC 0-2 HPF (0-2)
[2025-04-02 19:29] LABS: ALT 22 U/L (14-59); AST 16 U/L (15-37); Albumin 3.9 g/dL (3.4-5.0); Alkaline Phosphatase 93 U/L (46-116); Anion Gap 9.0 mmol/L (3-11); BUN 12 mg/dL (7-18); Bilirubin, Total 0.3 mg/dL (0.2-1.0); CO2 30.0 mmol/L (21.0-32.0); Calcium 9.3 mg/dL (8.5-10.1); Chloride 102 mmol/L (98-107); Estimated GFR 93.12 (mL/min/1.73m2); Glucose 80 mg/dL (74-106); Lipase 29 U/L (<78); Magnesium 2.0 mg/dL (1.8-2.4); Potassium 3.5 mmol/L (3.5-5.1); Sodium 141 mmol/L (136-145); Total Protein 8.0 g/dL (6.4-8.2); Troponin I < 4 ng/L (<or=51)
[2025-04-02] MEDS: Omnipaque 350 MG/ML 100 ML BTL IJ (19:47)
[2025-04-02] MEDS: Normal Saline - Diluent 50 ML VIAL IJ (19:48)
[2025-04-02 20:17] LABS: Troponin I < 4 ng/L (<or=51)
--- NOTE | 2025-04-02 20:37 | DI.VRAD_ITS ---
Addendum created by Debbie Flood MD on 04/02/2025 8:40:04 PM EDT: I discussed case findings with Chuck Rojas 04/02/2025 8:39 PM EDT. Initial report created on 04/02/2025 8:36:55 PM EDT: PROCEDURE INFORMATION: Exam: CT Abdomen And Pelvis With Contrast Exam date and time: 04/02/2025 7:44 PM Age: 44 years old Clinical indication: Abdominal pain; Right lower quadrant (rlq); Right flank and rlq pain TECHNIQUE: Imaging protocol: Computed tomography of the abdomen and pelvis with contrast. COMPARISON: No relevant prior studies available. FINDINGS: Liver: Normal. No mass. Gallbladder and biliary ducts: Status post cholecystectomy. Pancreas: Normal. No ductal dilation. Spleen: Normal. No splenomegaly. Adrenal glands: Normal. No mass. Kidneys and ureters: Normal. No hydronephrosis. Stomach and bowel: Unremarkable. No obstruction. No mucosal thickening. Appendix: The appendix is retrocecal and abnormally thickened and dilated. It measures up to 11 mm in diameter with adjacent inflammatory change. No definite evidence for rupture. Intraperitoneal space: Unremarkable. No free air. No significant fluid collection. Vasculature: Unremarkable. No abdominal aortic aneurysm. Lymph nodes: Unremarkable. No enlarged lymph nodes. Urinary bladder: Unremarkable as visualized. Reproductive: Unremarkable as visualized. Bones/joints: Mild lumbar spondylosis. Soft tissues: Unremarkable. IMPRESSION: Severe, acute appendicitis. No evidence for rupture. Dictated and Authenticated by: Debbie Flood MD. Orderin Bob Woods MD
[2025-04-02] MEDS: PIPERACILLIN/TAZO 4.5 GM in Normal Saline 100 ML IVPB (21:13)
[2025-04-02 21:34] VITALS: BP 130/67; PULSE 78; RESP 18; O2SAT 98
[2025-04-02 21:55] VITALS: BP 123/93; PULSE 72; RESP 16; TEMP 36.6; O2SAT 98
--- NOTE | 2025-04-02 21:55 | W.PC.ACHO ---
Registration Status: ADM WOLF Primary Language: Preferred Language: ED Information & Data Chief Complaint Abd Prob 04/02/25 18:43 Chief Complaint Abd Prob 04/02/25 18:38 Triage Note patient state she is having 04/02/25 18:38 right side flank pain since this am and has progressively gotten worst. Took ibuprofen this am which barely helped. State is pain migrating now to the right lower quadrant. Have been nauseous all morning also bloated Most Recent Vital Signs Temperature 36.8 C 04/02/25 18:44 Temperature Source Oral 04/02/25 18:44 Pulse 78 04/02/25 21:34 Respiratory Rate 18 04/02/25 21:34 Blood Pressure 130/67 04/02/25 21:34 Blood Pressure Mean 88 04/02/25 21:34 Blood Pressure Position Sitting 04/02/25 18:44 Pulse Oximetry 98 04/02/25 21:34 Oxygen Delivery Method Room Air 04/02/25 21:34 Oxygen Flow Rate 0 04/02/25 21:34 Pain Level 9 04/02/25 18:38 Allergies No Known Allergies Allergy (Unverified 04/02/25 18:44) Active Medications Generic Name Dose Route Start Last Admin Trade Name Freq PRN Reason Stop Dose Admin Iohexol 100 ml 04/02/25 20:00 04/02/25 19:47 Omnipaque 350 Mg/Ml 100 Ml Btl IJ 05/02/25 23:59 75 ml DIRECTED RUI Administration Sodium Chloride 50 ml 04/02/25 20:00 04/02/25 19:48 Normal Saline - Diluent 50 Ml Vial IJ 50 ml DIRECTED RUI Administration IV IV Catheter Type [Right Saline Lock Antecubital] IV Catheter Gauge [Right 20 Antecubital] Diet Orders Category Date Time Status npo [Nothing Per Oral] [DIET] Nutrition 04/02/25 18:58 Active Diagnostics 04/02/25 04/02/25 04/02/25 Range/Units 19:53 19:00 18:50 WBC 11.94 H (4.4-10.8) 10^3/uL RBC 4.48 (3.93-5.22) 10^6/uL Hgb 14.2 (11.2-15.7) g/dL Hct 41.7 (36.0-46.0) % MCV 93 (80-95) fL MCH 31.7 (27.0-33.0) pg MCHC 34.1 (32.0-36.0) % RDW 12.0 (11.7-14.6) % Plt Count 333 (130-400) 10^3/uL MPV 8.6 (8.0-11.0) fL Immature Gran % 0.3 % Neutrophils % 76.7 % Lymphocytes % 16.4 % Monocytes % 5.5 % Eosinophils % 0.8 % Basophils % 0.3 % Nucleated RBC % 0.0 (0.0-0.3) % Absolute Neutrophils 9.16 H (1.2-6.7) 10^3/uL Absolute Lymphocytes 1.96 (1.2-3.4) 10^3/uL Absolute Monocytes 0.66 (0.1-0.8) 10^3/uL Absolute Eosinophils 0.10 (0.0-0.7) 10^3/uL Absolute Basophils 0.04 (0.0-0.2) 10^3/uL VBG Lactate 0.5 (<or=2.0) mmol/L Sodium 141 (136-145) mmol/L Potassium 3.5 (3.5-5.1) mmol/L Chloride 102 (98-107) mmol/L Carbon Dioxide 30.0 (21.0-32.0) mmol/L Anion Gap 9.0 (3-11) mmol/L BUN 12 (7-18) mg/dL Creatinine 0.8 (0.55-1.02) mg/dL Est GFR (CKD-EPI 2020) 93.12 (mL/min/1.73m2) Glucose 80 (74-106) mg/dL Calcium 9.3 (8.5-10.1) mg/dL Magnesium 2.0 (1.8-2.4) mg/dL Total Bilirubin 0.3 (0.2-1.0) mg/dL AST 16 (15-37) U/L ALT 22 (14-59) U/L Alkaline Phosphatase 93 (46-116) U/L Troponin I < 4 < 4 (<or=51) ng/L Total Protein 8.0 (6.4-8.2) g/dL Albumin 3.9 (3.4-5.0) g/dL Lipase 29 (<78) U/L Urine Color Yellow (Yellow) Urine Clarity Sl Cloudy (Clear) Urine pH 6.0 (5-8) Ur Specific [place] 1.015 (1.005-1.025) Urine Protein Negative (Neg-Trace) mg/dL Urine Ketones Negative (Negative) mg/dL Urine Blood Trace-intact H (Negative) Urine Nitrite Negative (Negative) Urine Bilirubin Negative (Negative) Urine Urobilinogen 0.2 (Up to 0.2) mg/dL Ur Leukocyte Esterase Trace H (Negative) Urine RBC 0-2 (0-2) HPF Urine WBC 3-5 (0-5) HPF Ur Epithelial Cells Moderate (Negative) HPF Urine Crystals Negative (Negative) HPF Urine Bacteria Few (Negative) HPF Urine Casts Negative (Negative) LPF Urine Mucus Negative (Negative) Ur Culture Indicated? No Urine Glucose Negative (Negative) mg/dL Urine HCG, Qual Negative Intake and Output - 24 Hour Total 04/02/25 18:34 thru 04/02/25 18:38 Weight 73.482 kg Falls Risk Assessment History of Falls No History 04/02/25 19:21 Contributing Factors No Factors 04/02/25 19:21 Ambulatory Aids Independent 04/02/25 19:21 Tubes/Lines None 04/02/25 19:21 Gait Evaluation No gait disturbance 04/02/25 19:21 Cognition No cognitive impairment 04/02/25 19:21 Fall Total Score 0 04/02/25 19:21 Level of Risk Standard/Low Risk 04/02/25 19:21 Problems Acute appendicitis (Acute) v v v v v v v v v Sending and/or Receiving Nurses: Please use comment section below to note any information pertinent to the patient hand-off not included above. Information / Comments: Report given from ED. RA. ind. Currently NPO. Report received from: FUAD Wiggins
[2025-04-02] MEDS: MORPHine 2 MG/ML SYR IVP (22:59)
[2025-04-02] MEDS: Normal Saline Flush 10 ML SYR IVP (23:00)
[2025-04-03] VITALS (25 sets, daily range): BP systolic 100–128; BP diastolic 62–84; PULSE 74–101; RESP 13–74; TEMP 36.4–36.6; O2SAT 93–98; BMI 26.9
[2025-04-03] MEDS: Amitriptyline 25 MG TAB PO (00:36)
[2025-04-03] MEDS: PIPERACILLIN/TAZO 3.375 GM in Normal Saline 50 ML IVPB ×2 (03:56→11:06)
[2025-04-03] MEDS: Lactated Ringers 1,000 ML 75 ML IV (06:39)
[2025-04-03] MEDS: MORPHine 2 MG/ML SYR IVP ×2 (07:40→14:43)
[2025-04-03] MEDS: Normal Saline Flush 10 ML SYR IVP (07:40)
--- NOTE | 2025-04-03 07:40 | W.PM.HP.N ---
Date of service: 04/03/25 Time of Service: 07:40 Assessment and Plan Assessment and plan (1) Acute appendicitis: Status: Acute Assessment and plan: Appendectoy indicated. No stigmata of perforation. Discussed appendectoy risks, benefits, alternatives and expectations. Discussed perforated appendicitis, other findings or normal findings and the anticipated management plans for each. Home today if not perforated. Cont abx until surgery. To OR. lap appendectomy planned. History of Present Illness History of Present Illness Chief Complaint: appendicitis Narrative: 44yo F with 24h+ of RLQ pain, nausea. worsenin rlq pain that is severe and worse w movement, walking, repositioning and palpation. Has not had pain this severe in this location before. Lab showed leukocytosis and CT showed appendicitis. Brought in overnight in anticipation of appendectomy today. PSxH significant for cholecystectomy complicated by a bile leak. PFSH All Active Problems Acute appendicitis (Acute) Social History Smoking/Tobacco Use Status: Never Smoking risk assessment performed?: Yes Alcohol Intake: current Alcohol Intake frequency: holidays/special occasions only Alcohol type: wine Drug use: Never Substance use type: former substance user Housing: house Meds Allergies and Home Medications Allergies Allergy/AdvReac Type Severity Reaction Status Date / Time No Known Allergies Allergy Unverified 04/02/25 18:44 Home Medications ?Medication ?Instructions ?Recorded ?Confirmed ?Type amitriptyline 25 mg tablet 25 mg PO QHS 04/02/25 04/02/25 History bupropion HCl 150 mg 24 hr tablet, 150 mg PO QAM 04/02/25 04/02/25 History extended release (Wellbutrin XL) cholecalciferol (vitamin D3) 25 1,000 unit PO QHS 04/02/25 04/02/25 History mcg (1,000 unit) capsule levonorgestrel-ethinyl estradiol 1 tab PO QHS 04/02/25 04/02/25 History 90 mcg-20 mcg (28) tablet (Rosa (28)) Exam Narrative Exam Narrative: awake, NAD eomi, MMM midline trachea, neck is symmetric PULM: normal resp effort, equal chest rise with respiration, no wheezing audible CARDIAC: normal PMI, no jvd, regular rate, normal perfusion abdomen is nondistended. There is TTP at mcburneys point and along R side. + rovsing sign. extremities are without deformity, normal movement of all four extremities speech is clear and coherent mood and affect are congruent, no focal neurological deficits skin without rash Results Labs 04/02/25 19:00 04/02/25 19:00 Labs: Laboratory Results - last 24 hr 04/02/25 04/02/25 04/02/25 18:50 19:00 19:53 WBC 11.94 H RBC 4.48 Hgb 14.2 Hct 41.7 MCV 93 MCH 31.7 MCHC 34.1 RDW 12.0 Plt Count 333 MPV 8.6 Immature Gran % 0.3 Neutrophils % 76.7 Lymphocytes % 16.4 Monocytes % 5.5 Eosinophils % 0.8 Basophils % 0.3 Nucleated RBC % 0.0 Absolute Neutrophils 9.16 H Absolute Lymphocytes 1.96 Absolute Monocytes 0.66 Absolute Eosinophils 0.10 Absolute Basophils 0.04 VBG Lactate 0.5 Sodium 141 Potassium 3.5 Chloride 102 Carbon Dioxide 30.0 Anion Gap 9.0 BUN 12 Creatinine 0.8 Est GFR (CKD-EPI 2020) 93.12 Glucose 80 Calcium 9.3 Magnesium 2.0 Total Bilirubin 0.3 AST 16 ALT 22 Alkaline Phosphatase 93 Troponin I < 4 < 4 Total Protein 8.0 Albumin 3.9 Lipase 29 Urine Color Yellow Urine Clarity Sl Cloudy Urine pH 6.0 Ur Specific [place] 1.015 Urine Protein Negative Urine Ketones Negative Urine Blood Trace-intact H Urine Nitrite Negative Urine Bilirubin Negative Urine Urobilinogen 0.2 Ur Leukocyte Esterase Trace H Urine RBC 0-2 Urine WBC 3-5 Ur Epithelial Cells Moderate Urine Crystals Negative Urine Bacteria Few Urine Casts Negative Urine Mucus Negative Ur Culture Indicated? No Urine Glucose Negative Urine HCG, Qual Negative Last Vital Signs Temp 97.9 F 04/02/25 21:55 Pulse 72 04/02/25 21:55 Resp 16 04/02/25 21:55 BP 123/93 H 04/02/25 21:55 Pulse Ox 98 04/02/25 21:55 PAWSS Have you Been Recently Intoxicated or Drunk Within the Last 30 days?: No Have you Ever Experienced Previous Episodes of Alcohol Withdrawal?: No Have you ever Experienced Withdrawal Seizures?: No Have you ever Experienced Delirium Tremens(DT)s?: No Have you ever undergone Alcohol Rehabilitation Treatment (i.e, inpt ot outpatient treatment programs)?: No Have you ever Experienced Blackouts?: No Have you ever Combined Alcohol with other Downers within the last 90 days?: No Have you ever Combined Alcohol with any other Substance of Abuse during the last 90 days?: No Positive Blood Alcohol level on Presentation? [PCS.BAL]: No Evidence of Increased Autonomic Activity (i.e. HR>120, tremor, sweating, agitation, nausea)?: No Result: 0 Time Spent Time spent with Patient: <40 minutes Time was spent: preparing to see the patient(eg.review tests), ordering medications,tests, procedures, indepentently interpreting results, counseling the patient and care coordination
--- NOTE | 2025-04-03 07:52 | W.PM.DS.N ---
Date of service: 04/03/25 Time of Service: 10:19 DS: Diagnosis Discharge Diagnosis (1) Acute appendicitis: Status: Acute Discharge Plan Disposition Patient Disposition: Home Condition: Stable Discharge Details Reason For Visit: Appendicitis Admit Date/Time: 04/02/25 21:01 Admit Provider: Jaymie Lou Attending Provider: Jaymie Lou Primary Care Provider: Ac Brand Hospital Course Hospital Course: 44yo F admitted for observation overnight for acute appendicitis. She was prepared for appendectomy. She was taken to surgery in the morning of 04/03/25. Home Meds and New Rx's Prescriptions: New hydrocodone-acetaminophen 5-325 mg tablet 1 tab PO Q6H PRN (Reason: pain) Qty: 10 0RF Continued levonorgestrel-ethinyl estrad [Rosa (28)] 90-20 mcg (28) tablet 1 tab PO QHS bupropion HCl [Wellbutrin XL] 150 mg tablet extended release 24 hr 150 mg PO QAM amitriptyline 25 mg tablet 25 mg PO QHS cholecalciferol (vitamin D3) 25 mcg (1,000 unit) capsule 1,000 unit PO QHS Discharge Instructions Additional Instructions: Shower in 24 hours. Wash gently over skin glue with soapy hands, rinse, pat dry. Don't peel glue or submerge incisions under water. Do not clean the glue with rubbing alcohol or any solvents beyond your regular soap/body wash and water. The glue will start to come off on its own in about 2 weeks. Ok to walk, climb stairs, and resume normal activities of daily living. Do not lift/push/pull more than 20lb for 4 weeks. Do not exercise until cleared by surgeon in office. Monitor yourself for constipation during recovery. Add a stool softener or laxative if no BM within 36 hours. Call or return for fever or incisional problems Activity:: see typed instructions Equipment/Supplies:: No Equipment Needed Diet:: As Tolerated Discharge Orders Discharge Orders: Discharge Order (Routine); Ordered 04/03/25 Ordered By: Jaymie Lou DS: Summary Time Spent with Patient providing and/or coordinating discharge services: Less than 30 minutes Status at Discharge Functional status at discharge: independent ambulation Overall status at discharge: patient is progressing back to baseline Mental Status: mental status grossly normal Speech and Movement: speech and movement normal Mood: congruent mood Affect: normal affect Quality:SDOH Health Related Social Needs: Health related social needs risk of homeless Exam Psych Mental Status: mental status grossly normal Speech and Movement: speech and movement normal Mood: congruent mood Affect: normal affect DS: Data Vitals/I&O Vitals and I&O: Vital Signs Temperature 97.9 F 04/03/25 07:50 Temperature Source Temporal Artery Scan 04/03/25 07:50 Pulse 78 04/03/25 07:50 Respiratory Rate 18 04/03/25 07:50 Respiratory Effort Normal 04/02/25 22:05 Respiratory Depth Normal 04/02/25 22:05 Respiratory Pattern Normal 04/02/25 22:05 Blood Pressure 121/82 04/03/25 07:50 Blood Pressure Mean 95 04/03/25 07:50 Blood Pressure Position Sitting 04/02/25 18:44 Pulse Oximetry 98 04/03/25 07:50 Oxygen Delivery Method Room Air 04/03/25 07:50 Oxygen Flow Rate 0 04/03/25 07:50 Pain Level 7 04/03/25 07:50 Intake & Output 04/02/25 04/02/25 04/03/25 11:59 23:59 11:59 Intake Total 50 / 50 Balance 50 / 50 Weight 73.482 kg Intake: IV 50 / 50 Data Completed and Pending Labs on day of discharge: Labs from last 24 hours 04/02/25 04/02/25 04/02/25 19:53 19:00 18:50 WBC 11.94 H RBC 4.48 Hgb 14.2 Hct 41.7 MCV 93 MCH 31.7 MCHC 34.1 RDW 12.0 Plt Count 333 MPV 8.6 Immature Gran % 0.3 Neutrophils % 76.7 Lymphocytes % 16.4 Monocytes % 5.5 Eosinophils % 0.8 Basophils % 0.3 Nucleated RBC % 0.0 Absolute Neutrophils 9.16 H Absolute Lymphocytes 1.96 Absolute Monocytes 0.66 Absolute Eosinophils 0.10 Absolute Basophils 0.04 VBG Lactate 0.5 Sodium 141 Potassium 3.5 Chloride 102 Carbon Dioxide 30.0 Anion Gap 9.0 BUN 12 Creatinine 0.8 Est GFR (CKD-EPI 2020) 93.12 Glucose 80 Calcium 9.3 Magnesium 2.0 Total Bilirubin 0.3 AST 16 ALT 22 Alkaline Phosphatase 93 Troponin I < 4 < 4 Total Protein 8.0 Albumin 3.9 Lipase 29 Urine Color Yellow Urine Clarity Sl Cloudy Urine pH 6.0 Ur Specific [place] 1.015 Urine Protein Negative Urine Ketones Negative Urine Blood Trace-intact H Urine Nitrite Negative Urine Bilirubin Negative Urine Urobilinogen 0.2 Ur Leukocyte Esterase Trace H Urine RBC 0-2 Urine WBC 3-5 Ur Epithelial Cells Moderate Urine Crystals Negative Urine Bacteria Few Urine Casts Negative Urine Mucus Negative Ur Culture Indicated? No Urine Glucose Negative Urine HCG, Qual Negative PFSH All Active Problems Acute appendicitis (Acute) Social History Smoking/Tobacco Use Status: Never Smoking risk assessment performed?: Yes Alcohol Intake: current Alcohol Intake frequency: holidays/special occasions only Alcohol type: wine Drug use: Never Substance use type: former substance user Housing: house Time Spent with Patient Time Spent with Patient: <45 minutes Time was spent: ordering medications,tests, procedures, referring, communicating with other health critical care registered nurse, counseling the patient and care coordination
--- NOTE | 2025-04-03 09:38 | PDOC.CMPRO ---
Date of service: 04/03/25 Time of Service: 15:42 Care Management Progress Note Progress Note Text Progress Note Text: Judy was discharged home prior to CM meeting with her. It is recommended that Judy will follow up with her community providers and continue per her discharge plan of care. Anticipate Judy will be transported via private vehicle. Discharge Plan: Judy is being discharged home today with no new services. It is recommended that Judy will follow up with her community providers and continue per her discharge plan of care. She will likely transport via private vehicle. Social Determinants of Health Screening Social Determinants of health last assessed in clinic: 04/02/25 Will the Patient Participate in the Screening?: Yes Do you worry about having a steady place to live?: yes What is your living situation today?: I have housing today, but am worried about losing it Problems where you live: no known problems In the past 12 months, have you had to go without electric, gas, oil or water in your home?: no Has lack of transportation kept you from medical appointments or from doing things needed for daily living?: no Has anyone in your life made you feel unsafe or unsupported?: no How hard is it for you to pay for the very basics like food, housing, medical care, and heating? Would you say it is:: Not hard at all Do you want help finding or keeping work or a job?: I do not need or want help If for any reason you need help with day-to-day activities such as bathing, preparing meals, shopping, managing finances, etc., do you get the help you need?: I don?t need any help How often do you feel lonely or isolated from those around you?: Never Do you speak a language other than Somali at home?: No Does the patient want assistance with any of the above?: No Health Related Social Needs Health related social needs: housing instability, housed, with risk of homelessness (Z59.811)
--- NOTE | 2025-04-03 10:28 | ANES.PREOP_ITS ---
General Info Date of Service Date Performed: 04/03/25 Height: 5 ft 5 in Weight: 73.482 kg Body Mass Index (BMI): 26.9 Surgical Procedure: Operation Date: 04/03/25 10:25 Proposed Procedure Side Surgeon p Appendectomy Laparoscopic Jaymie Lou MD Meds Allergies and Home Medications Allergies Allergy/AdvReac Type Severity Reaction Status Date / Time No Known Allergies Allergy Unverified 04/02/25 18:44 Home Medication ?Medication ?Instructions ?Recorded amitriptyline 25 mg tablet 25 mg PO QHS 04/02/25 bupropion HCl 150 mg 24 hr tablet, 150 mg PO QAM 04/02 extended release (Wellbutrin XL) cholecalciferol (vitamin D3) 25 1,000 unit PO QHS 03/11 12/02 mcg (1,000 unit) capsule levonorgestrel-ethinyl estradiol 1 tab PO QHS 04/02/25 90 mcg-20 mcg (28) tablet (Rosa (28)) hydrocodone 5 mg-acetaminophen 325 1 tab PO Q6H PRN pa in #10 tabs 04/03/25 mg tablet Current Visit Medications: Current Medications Generic Name Dose Route Start Last Admin Trade Name Freq PRN Reason Stop Dose Admin Acetaminophen 650 mg 04/02/25 21:01 Acetaminophen 325 Mg Tab PO Q4H PRN PRN Amitriptyline HCl 25 mg 04/02/25 23:00 04/03/25 00:36 Amitriptyline 25 Mg Tab PO 25 mg HS RUI Administration Ringer's Solution 1,000 mls @ 75 mls/hr 04/02/25 22:45 04/03/25 06:39 IV 75 mls/hr INFUSION RUI Administration Piperacillin Sod/Tazobactam 50 mls @ 100 mls/hr 04/03/25 04:00 04/03/25 05:29 Sod 3.375 gm/ Sodium Chloride IVPB Infused Q6H RUI Infusion IV Miscellaneous Supplies 1 each 04/02/25 18:45 Iv Access-Emergency Dept IV DIRECTED [facility] IV Miscellaneous Supplies 1 each 04/02/25 22:45 Iv Access IV DIRECTED [facility] Iohexol 100 ml 04/02/25 20:00 04/02/25 19:47 Omnipaque 350 Mg/Ml 100 Ml Btl IJ 05/02/25 23:59 75 ml DIRECTED RUI Administration Morphine Sulfate 2 mg 04/02/25 22:36 04/03/25 07:40 Morphine 2 Mg/Ml Syr IVP 2 mg Q2H PRN PRN Administration Ondansetron HCl 4 mg 04/02/25 22:36 Ondansetron 4 Mg/2 Ml Vial IVP Q4H PRN PRN Polyethylene Glycol 17 gm 04/02/25 21:01 Polyethylene Glycol 3350 17 Gm Packet PO DAILY PRN PRN Constipation Sodium Chloride 0 ml 04/02/25 18:45 Normal Saline Flush 10 Ml Syr IVP PRN PRN Sodium Chloride 0 ml 04/02/25 20:00 04/03/25 07:40 Normal Saline Flush 10 Ml Syr IVP 10 ml BID RUI Administration Sodium Chloride 0 ml 04/02/25 18:45 Normal Saline 10 Ml Vial IJ DIRECTED PRN Sodium Chloride 50 ml 04/02/25 20:00 04/02/25 19:48 Normal Saline - Diluent 50 Ml Vial IJ 50 ml DIRECTED RUI Administration Sodium Chloride 0 ml 04/02/25 22:36 Normal Saline Flush 10 Ml Syr IVP PRN PRN Sodium Chloride 0 ml 04/03/25 08:30 04/03/25 09:15 Normal Saline Flush 10 Ml Syr IVP Not Given BID RUI Sodium Chloride 0 ml 04/02/25 22:36 Normal Saline 10 Ml Vial IJ DIRECTED PRN PFSH Active Problems Active Problems: Problem Status Onset Code Acute appendicitis Acute K35.80 Tobacco Smoking/Tobacco Use Status: Never Alcohol Alcohol Intake: current Alcohol intake frequency: holidays/special occasions only Alcohol type: wine Substance Use Substance use: Never Substance use type: former substance user Vital Signs and Lab Results Vital Signs Most Recent Vital Signs in EMR: Most Recent Vital Signs Temp Pulse Resp BP Pulse Ox 36.6 C 76 18 108/79 98 04/03/25 10:11 04/03/25 10:11 04/03/25 10:11 04/03/25 10:11 04/03/25 10:11 Lab Results 04/02/25 19:00 04/02/25 19:00 Complete Blood Count: 2 WBC, (4.4-10.8) 11.94 10^3/uL H 04/02/25, 19:00 RBC, (3.93-5.22) 4.48 10^6/uL 04/02/25, 19:00 Hgb, (11.2-15.7) 14.2 g/dL 04/02/25, 19:00 Hct, (36.0-46.0) 41.7 % 04/02/25, 19:00 Plt Count, (130-400) 333 10^3/uL 04/02/25, 19:00 VBG Lactate, (<or=2.0) 0.5 mmol/L 04/02/25, 19:00 Complete Metabolic Panel: 2 Sodium, (136-145) 141 mmol/L 04/02/25, 19:00 Potassium, (3.5-5.1) 3.5 mmol/L 04/02/25, 19:00 Chloride, (98-107) 102 mmol/L 04/02/25, 19:00 Carbon Dioxide, (21.0-32.0) 30.0 mmol/L 04/02/25, 19 :00 BUN, (7-18) 12 mg/dL 04/02/25, 19:00 Creatinine, (0.55-1.02) 0.8 mg/dL 04/02/25, 19:00 Est GFR (CKD-EPI 2020), (mL/min/1.73m2) 93.12 04/02/25, 19:00 Magnesium, (1.8-2.4) 2.0 mg/dL 04/02/25, 19:00 Calcium, (8.5-10.1) 9.3 mg/dL 04/02/25, 19:00 Albumin, (3.4-5.0) 3.9 g/dL 04/02/25, 19:00 Glucose, (74-106) 80 mg/dL 04/02/25, 19:00 Liver Function Panel: 2 ALT, (14-59) 22 U/L 04/02/25, 19:00 AST, (15-37) 16 U/L 04/02/25, 19:00 Cardiac Panel: 2 Troponin I, (<or=51) < 4 ng/L 04/02/25 Pancreas Panel: 2 Lipase, (<78) 29 U/L 04/02/25, 19:00 Panel: 2 Urine HCG, Qual Negative 04/02/25, 18:50 Anesthesia Assessment and Plan Anesthesia History Personal History: No History of Anesthesia Complications Family History: No Family History of Anesthesia Complications Exercise Tolerance Exercise Tolerance: Metabolic Equivalents>4 Pertinent Negatives Pertinent Negatives: No Symptoms of GERD, No Major Cardiovascular Symptoms or Complaints and No Major Pulmonary Symptoms or Complaints Cardiac & Pulmonary Exam Cardiac Exam: Normal S1/S2 Heart Sounds Pulmonary Exam: Clear Bilateral Breath Sounds Implantable Cardiac Device Does patient have a Pacemaker or an ICD?: No Airway Exam Known Difficult Airway: No Mallampati Class: 2 Mouth Opening: Normal (> 3cm) Thyromental Distance: Greater than 3 cm Neck Range of Motion: Full ROM Neck Circumference: Normal Teeth Condition: Normal Dentition ASA Classification ASA Score: ASA 2 Emergency Case?: No NPO Status NPO Status: NPO Clears >2 hours, Solids >8 hours Status Status: Negative HCG Anesthesia Plan Resuscitation Status: Full Code Anesthesia Technique: General Anesthesia Airway Planned: Endotracheal Tube Monitors Used: Standard Monitors and SedLine
[2025-04-03] MEDS: Bupivacaine 0.25% Pres-Free W/EPI 30 ML VIAL (11:26)
--- NOTE | 2025-04-03 11:50 | APP_PTH ---
PATIENT: Judy Jama LOC: U#:[id number] AGE/SX: 44/F ROOM: RE04/02/[address]: Jaymie Lou MD : 1980 BED: A DIS: 04/03/2025 SPEC #: [id number] RECD: 04/03/25 15:38 STATUS: XENA REQ #: [id number] ANCELMO: 04/03/25 11:[address]: Jaymie Lou DEPT: Surgical Specimen RECD BY: Nena Joseph ENTERED: 04/03/25 15:38 SP TYPE: Appendix OTHR DR: Ac Brand Tissues: 1 - APPENDIX NOT INCIDENTAL Procedures: GROSS AND MICRO LEVEL 3 Comments: [id number]
--- NOTE | 2025-04-03 12:29 | ROE_ITS ---
Operative Note Operative Note Refer to Anesthesia Record Procedure Description: Preoperative Diagnosis: Acute appendicitis Postoperative Diagnosis: Acute appendicitis Procedure: Laparoscopic appendectomy Surgeon: Jaymie Lou MD Fisheries Management Biologist: RAE Jimenez EBL: 30mL Anesthesia: GETA + local Specimen: Appendix Complications: None Procedure Description: This is a 44-year-old patient who was evaluated in the emergency department for abdominal pain. They had leukocytosis and a CAT scan showing acute appendicitis. Appendectomy was indicated. We discussed laparoscopic appendectomy procedure at length, including a discussion about the risks, the benefits, the alternatives, and the expectations. Informed consent was obtained and the patient was taken to the operating room. The patient was placed supine on the operating table. SCDs were placed and all pressure points were padded appropriately. General anesthesia was induced. Martinez catheter was placed. The abdomen was clipped, prepped, and draped in the usual sterile fashion. Timeout was performed. Local anesthetic was infiltrated into the skin and subcutaneous tissues at the planned incision sites. An infraumbilical incision was made with a scalpel. The umbilical stalk was grasped and elevated and the fascia cleared with cautery. An incision was made in the fascia and a Dede clamp was used to enter the peritoneum. A finger sweep confirmed no structures against the abdominal wall. A Matthews trocar was introduced and the abdomen was insufflated to 15 mmHg. Initial laparoscopy confirmed no injury to the intra-abdominal structures. Two additional 5 mm ports were placed under direct visualization, 1 in the lower midline and 1 in the left lower abdomen. The patient was placed in Trendelenburg position and rotated toward the left. The cecum was identified and followed to the location of the appendix. The appendix was dilated and abnormally thickened. It was retrocecal. There was evidence of fat change and inflammation consistent with appendicitis. The appendix was grasped and elevated. A [place] dissector was used to dissected the base of the appendix from the cecum and fat. A bowel load stapler was used to transect the appendix at the base against the cecum. Next the mesoappendix was freed and cleared and a vascular load stapler was used to transect the mesoappendix. The appendix was placed into an Endo Catch bag. Hemostasis was assured at the staple lines. Vascular staple line required hemoclips. The pelvis and right lower quadrant were suctioned clean. The appendectomy site was examined for hemostasis and it was confirmed. The appendix was removed through the umbilical site. The abdomen was desufflated. The 5mm ports were removed. The umbilical fascia was closed with an 0 Vicryl stitch in a [id number] fashion. The remainder of the local anesthetic was infiltrated at the incision sites. The skin was washed and dried. The skin at all 3 sites was closed with 4-0 Monocryl simple interrupted subcuticular sutures. All sponge and instrument counts were correct at the end of the case. The patient tolerated the procedure well. The patient extubated in the operating room and transferred to the recovery room in stable condition. Martinez catheter was removed. No complications. Date of Procedure: 04/03/25
[2025-04-03] MEDS: fentaNYL 100 MCG/2 ML VIAL IVP (12:44)
--- NOTE | 2025-04-03 13:35 | W.ANESPOSTOP ---
Postoperative Evaluation Date, Time and Location Date Performed: 04/03/25 Time Performed: 12:50 Patient Location: PACU Vital Signs Most Recent Imported Vital Signs: Most Recent Vital Signs Temp Pulse Resp BP Pulse Ox 36.5 C 74 20 118/74 94 04/03/25 13:11 04/03/25 13:11 04/03/25 13:11 04/03/25 13:11 04/03/25 13:11 Pain Score Most Recent Pain Score: Most Recent Pain Score Pain Level 2 04/03/25 13:11 Assessment Mental Status: Awake (Alert & Oriented to Patient Baseline) Airway and Respiratory Function: Patent airway with normal (patient baseline) respiratory exam Cardiovascular Function: Hemodynamically Stable Hydration Status: Adequately Hydrated Nausea & Vomiting: No Nausea or Vomiting Pain: Pain is tolerable per patient Peripheral Nerve Block: Patient did not receive a nerve block
--- NOTE | 2025-04-03 16:23 | PDOC.CMDIS ---
Date of service: 04/03/25 Time of Service: 16:23 LACE Index Scoring Tool Questions: Length of Stay (in days): 1 Was the patient admitted via the E.D.?: Yes E.D. Visits: 1 Answers: Total Score: 5 Risk of Readmission: Low Risk Care Management Discharge Plan Reason for Hospitalization: Appendicitis Discharge Plan: Judy is being discharged home with no new services indicated. It is recommended Judy will follow up with her community providers, surgical team, and discharge plan of care. She will be transported home via private vehicle by her . Patient/Family Education Needs: review of discharge instructions, activity, limitations, and plan of care. Discuss ask me three.
== END 2025-04-03 16:26 | disposition home or self-care (01) ==
LOC: ER 21:16 → MS 21:46
PROVIDERS: Admitting Provider Surgery; Emergency Provider General Practice; PCP Nurse Practitioner Family; Visit Provider Surgery
PROC: 0DTJ4ZZ Resection of Appendix, Percutaneous Endoscopic Approach (ICD-10-PCS; CPT 44970; principal; 2025-04-03 10:15)
DX: K35.80 Unspecified acute appendicitis (principal); Z59.811 Housing instability, housed, with risk of homelessness
CPT/HCPCS: 44970; 36415; 80053; 83690; 96361; 96365; 96366; 96375; 96376; 99285; 74177; 81003; 81015; 81025; 83605; 83735; 84484; 85025; 88304; G0378; J0131; J1100; J1171; J1790; J1885; J2003; J2250; J2270; J2405; J2543; J2704; J3010; J3490